=== PATIENT | female | born 1965 | race Caucasian/White ===

== ENCOUNTER 2020-05-16 10:37 | Outpatient (CLI) | payer OTHER, SELFPAY ==
--- NOTE | ~2020-05-16 | MM_ITS ---
EXAMINATION: MM screening jonny BI w alicia HISTORY: Screening TECHNIQUE: Craniocaudal and mediolateral oblique 3-D tomosynthesis images were obtained and synthetic 2-D images were generated. CAD analysis was submitted and interpreted. COMPARISON: No prior mammogram is available for comparison at this institution. BREAST PARENCHYMAL COMPOSITION: There are scattered areas of fibroglandular density. FINDINGS: There is no evidence of suspicious mass, calcification, or architectural distortion to sugg est malignancy in either breast. There has been no suspicious interval change. IMPRESSION: 1. No mammographic evidence of malignancy. 2. Recommend routine screening mammography in one year. BI-RADS Category 1: Negative Reviewed, dictated and finalized at location A. YPERSON
== END 2020-05-16 10:38 | disposition home or self-care (01) ==
PROVIDERS: PCP Family Medicine; Visit Provider Obstetrics & Gynecology Gynecology
DX: Z12.31 Encounter for screening mammogram for malignant neoplasm of breast (principal)
CPT/HCPCS: 77063; 77067

== ENCOUNTER 2021-03-12 07:20 | Outpatient (CLI) | payer OTHER, SELFPAY ==
--- NOTE | ~2021-03-12 | US_ITS ---
EXAMINATION: US abdomen complete EXAM DATE: 03/12/2021 07:47 INDICATION: Iron overload. TECHNIQUE: Multiple grayscale and Doppler images of the complete abdomen were obtained (by a technolo gist who performed the scan) and subsequently reviewed. There is no prior study for comparison. FINDINGS: The abdominal aorta is normal in caliber. Visualized portion IVC is patent. The pancreatic head a nd body are normal in appearance. The pancreatic tail is not visualized. The liver has normal echogenicity and contour. There are no focal liver lesions identified. There is no evidence of intrahepatic biliary duct dilation. Portal venous flow was seen in the hepatopedal , normal direction and has normal Doppler waveform. Common bile duct measures 3 mm, which is normal. The gallbladder wall is normal in thickness, with ex pected amount of distention. No sonographic evidence of pericholecystic fluid. There is no cholelit hiases. Technologist performing exam reports patient did not demonstrate sonographic Fuentes's sign. Please note that this sign is less reliable in patients who have received pain medication. Right kidney: There is normal contour and echogenicity. It measures 11.5 x 4.0 x 4.5 centimeters. There are no focal renal lesions identified. There is no hydronephrosis. Left kidney: There is normal contour and echogenicity. It measures 11.1 x 4.3 x 6.8 centimeters. T here are no focal renal lesions identified. There is no hydronephrosis. The spleen measures 9.0 centimeters and is morphologically normal. IMPRESSION: Unremarkable complete abdominal ultrasound exam. Reviewed, dictated and finalized at location A. RPRISE SERVICES MANAGER
[2021-03-12 21:05] LABS: SARS-CoV-2 RNA PCR Positive
== END 2021-03-12 07:21 | disposition home or self-care (01) ==
PROVIDERS: PCP Family Medicine; Visit Provider Internal Medicine Hematology & Oncology
DX: E83.19 Other disorders of iron metabolism (principal); U07.1 COVID-19
CPT/HCPCS: 76700; C9803; U0003; U0005

== ENCOUNTER 2021-04-15 18:41 | Emergency (ER) | payer OTHER, SELFPAY ==
--- NOTE | 2021-04-15 18:50 | ED.ABDPAIN ---
HPI - Abdominal Pain General Chief Complaint: Abdominal Pain Stated Complaint: Abdominal Pain Time Seen by Provider: 04/15/21 18:50 Source: patient, RN notes reviewed and old records reviewed Mode of arrival: ambulatory Limitations: no limitations History of Present Illness HPI narrative: 55-year-old female presents to the [facility] with complaints of abdominal pain, headache. States the abdominal pain started approximately 2 PM today, epigastric pain. Has taken Tums with no relief. Patient also reports a mild headache for over a month. Had seen primary care provider and they've been monitoring her blood pressure. Denies any nausea vomiting or diarrhea. Denies fevers. No chest pain or shortness of breath. MD elicited complaint: abdominal pain Related Data Home Medications Medication Instructions Recorded Confirmed celecoxib 200 mg capsule 200 mg PO DAILY 12/06/19 04/15/21 cetirizine 10 mg capsule 10 mg PO DAILY 12/06/19 04/15/21 levothyroxine 75 mcg tablet 75 mcg PO DAILY 12/06/19 04/15/21 Allergies Allergy/AdvReac Type Severity Reaction Status Date / Time aspirin Allergy Unknown Unknown Verified 10/09/20 15:24 Bleach (Sodium Hypochlorite) Allergy Unknown Unknown Verified 10/09/20 15:24 kiwi Allergy Unknown Unknown Verified 10/09/20 15:24 No Known Allergies Allergy Unknown Verified 10/09/20 15:24 Review of Systems Review of Systems: All systems reviewed & are unremarkable except as noted in HPI and below Constitutional: Constitutional: Reports no additional constitutional complaints, Denies body ache(s), Denies chills and Denies fever(s) Eyes: Eyes: Reports no additional eye complaints, Denies change in vision and Denies photophobia ENT: Reports system reviewed and no additional complaints, except as documented and Denies sore throat Cardiovascular: Cardiovascular: Reports no additional cardiovascular complaints, Denies chest pain, Denies rapid heart rate, Denies radiating jaw, neck or arm pain, Denies dyspnea and Denies slow heart rate Respiratory: Respiratory: Reports no additional respiratory complaints, Denies cough and Denies dyspnea Gastrointestinal: Gastrointestinal: Reports as per HPI, Reports abdominal pain (Epigastric), Denies diarrhea, Denies nausea and Denies vomiting Genitourinary: Genitourinary: Reports no additional female genitourinary complaints Musculoskeletal: Musculoskeletal: Reports no additional musculoskeletal complaints Integumentary/Breasts: Skin/Breast: Reports system reviewed and no additional complaints, except as docu Neurologic: Reports as per HPI and Reports headache(s) (General) Psychiatric: Psychiatric: Reports no additional psychiatric complaints Allergic/Immunologic: Allergic/Immunologic: Reports no additional allergic/immunologic complaints PMFSH Past Medical History Medical History (Updated 04/15/21 @ 19:16 by Jacquelyn Marie) Bilateral primary osteoarthritis of knee Osteoarthritis of both knees Family History Family History Mother Acute myocardial infarction Family history of arthritis Grandparent Family history of arthritis Father Family history of malignant neoplasm Comments At the time of my signature, I reviewed and agree with the nursing past medical, surgical, social, and family history. There is no relevant family history pertinent to the patient complaint. Exam Const: General: cooperative, healthy appearing, comfortable, no acute distress, well developed and alert; No diaphoretic Nutritional Appearance: well nourished and not obese Orientation/consciousness: patient oriented x3 Limitations: no limitations HENMT: Head: normal to inspection Ears: external ears normal Eyes: Conjunctivae: conjunctivae normal Pupils: Equal, round and reactive pupils present Neck: Neck: normal visual inspection, no lymphadenopathy and no meningeal signs Chest: Chest palpation & inspection: normal inspection of
[2021-04-15 18:53] VITALS: PULSE 84; RESP 16; TEMP 36.8; O2SAT 99
[2021-04-15 18:58] VITALS: BP 220/120
--- NOTE | 2021-04-15 18:58 | PC.NURSE ---
[id number] Pt moved to exam room 1 and EKG done. provider at bedside. manual b/p done.
--- NOTE | 2021-04-15 18:59 | ECG_ITS ---
Measurements Intervals [place] Rate: 72 P: 31 WI: 133 QRS: 32 QRSD: 86 T: 33 QT: 362 QTc: 397 Interpretive Statements SINUS RHYTHM NORMAL ECG Electronically Signed On 04-15-2021 20:24:49 AIRLINE RADIO OPERATOR by Gray Tinsley D.O.
--- NOTE | 2021-04-15 19:00 | PC.NURSE ---
1900 Paresh FRAZIER discussing plan of care with pt. informed pt need to go to [facility] via ambulance. pt refused and calling friend to take her to [facility].
--- NOTE | 2021-04-15 19:03 | PC.NURSE ---
1902 Cipriano Onofre NP called [facility] and gave report to Gely Fuentes RN.
--- NOTE | 2021-04-15 19:06 | PC.NURSE ---
1905 EMS to [facility] offered again, pt refused and signed AMA paper. Pt friend on her way.
== END 2021-04-15 19:11 | disposition short-term general hospital (02) ==
PROVIDERS: Emergency Provider Nurse Practitioner; PCP Nurse Practitioner Adult Health
DX: I10 Essential (primary) hypertension (principal); R10.11 Right upper quadrant pain; M17.0 Bilateral primary osteoarthritis of knee
CPT/HCPCS: 93005; 99213; G0463

== ENCOUNTER → 2021-05-23 11:27 | Outpatient (CLI) | payer OTHER, SELFPAY ==
--- NOTE | ~2021-05-23 | US_ITS ---
EXAMINATION: US transvaginal DATE: 05/23/2021 12:12 INDICATION: Missing IUD arms after device removal TECHNIQUE: Multiple endovaginal sonographic images of the pelvis were obtained. COMPARISON: None. FINDINGS: The uterus measures 8.2 x 4.4 x 4.7 cm. There is an approximately 5 mm linear echogenic foc us in the left uterus near the fundus. There is a second echogenic focus measuring approximately 5 mm projecting adjacent to the endometrial complex in the mid uterine body on the right. The endometrial complex measures 5 mm. The ovaries are not visualized however no adnexal abnormality is seen. There is no free fluid in the pelvis. IMPRESSION: 1. Possible retained IUD fragments. Reviewed, dictated and finalized at location B. IN DUMPER
== END ==
PROVIDERS: Visit Provider Nurse Practitioner
DX: T83.89XA Other specified complication of genitourinary prosthetic devices, implants and grafts, initial encounter (principal); Y83.8 Other surgical procedures as the cause of abnormal reaction of the patient, or of later complication, without mention of misadventure at the time of the procedure
CPT/HCPCS: 76830

== ENCOUNTER 2021-06-19 08:21 | Outpatient (CLI) | payer OTHER, SELFPAY ==
--- NOTE | 2021-06-19 | ECG_ITS ---
Measurements Intervals [place] Rate: 61 P: 35 IN: 136 QRS: 42 QRSD: 85 T: 21 QT: 405 QTc: 411 Interpretive Statements SINUS RHYTHM COMPARED TO ECG 04/15/2021 18:58:25 NO SIGNIFICANT CHANGES Electronically Signed On 06-19-2021 18:53:56 CDT by Shonna Santiago M.D.
--- NOTE | ~2021-06-19 | CT_ITS ---
EXAMINATION: CT LE LT wo con DATE: 06/19/2021 08:39 INDICATION: Left knee osteoarthritis TECHNIQUE: High resolution computed tomography (CT) of the left lower limb from the hip through the a nd ankle was performed without intravenous contrast. Additional sagittal and coronal reconstructions were performed. Automated exposure control and iterative reconstruction technique were employed. The dose-length product was 1589.45 mGy-cm. COMPARISON: Radiograph dated 09/01/2018 FINDINGS: Bone alignment is normal. No fracture. Osteoarthritis at the right knee with moderate joint space concha rowing the medial compartment which could be underestimated on nonweightbearing imaging. There modera te-sized marginal osteophytes at both the medial and patellofemoral compartments. Small marginal oste ophytes at the lateral compartment. Small to moderate-sized right knee joint effusion. Small marginal osteophytes about the left acetabulum with relatively preserved left hip joint space. No left hip dino int effusion. Small enthesophyte and a few small enthesopathic ossicles at the calcaneal insertion of the distal Achilles tendon. The musculature and tendons of the left lower limb. Normal . No patholog ically enlarged lymphadenopathy at the left groin or visualized pelvis. IMPRESSION: 1. At least moderate medial compartment predominant osteoarthritis at the left knee which could be un derestimated on nonweightbearing imaging. Reviewed, dictated and finalized at location B. IMPRESSION: 1. At least moderate medial compartment predominant osteoarthritis at the left knee which could be underestimated on nonweightbearing imaging.
[2021-06-19 09:10] LABS: Hematocrit 45.4 % (37.0-47.0); Hemoglobin 15.4 g/dL (12.0-15.0)
[2021-06-19 09:21] LABS: Albumin Level 4.2 g/dL (3.5-5.1); Estimated Glomerular Filt Rate > 60; Glucose 88 mg/dL (65-110)
[2021-06-19 09:21] LABS: Urine Cotinine NEGATIVE
[2021-06-19 09:23] LABS: Hemoglobin A1C 5.2 % (<5.7)
== END 2021-06-19 08:22 | disposition home or self-care (01) ==
PROVIDERS: PCP Nurse Practitioner Adult Health; Visit Provider Orthopaedic Surgery
DX: M17.12 Unilateral primary osteoarthritis, left knee (principal)
CPT/HCPCS: 73700; 80307; 82040; 82565; 82947; 83036; 85014; 85018; 93005

== ENCOUNTER → 2021-06-20 10:49 | Outpatient (CLI) | payer OTHER, SELFPAY ==
--- NOTE | ~2021-06-20 | MM_ITS ---
EXAMINATION: MM screening jonny BI w alicia HISTORY: Screening TECHNIQUE: Craniocaudal and mediolateral oblique 3-D tomosynthesis images were obtained and synthetic 2-D images were generated. CAD analysis was submitted and interpreted. COMPARISON: Comparison to multiple prior studies sequentially, with oldest reviewed study dated 12/03. BREAST PARENCHYMAL COMPOSITION: There are scattered areas of fibroglandular density. FINDINGS: There is no evidence of suspicious mass, calcification, or architectural distortion to sugg est malignancy in either breast. There has been no suspicious interval change. IMPRESSION: 1. No mammographic evidence of malignancy. 2. Recommend routine screening mammography in one year. BI-RADS Category 1: Negative Reviewed, dictated and finalized at location A.
== END ==
PROVIDERS: PCP Nurse Practitioner Adult Health; Visit Provider Obstetrics & Gynecology Gynecology
DX: Z12.31 Encounter for screening mammogram for malignant neoplasm of breast (principal)
CPT/HCPCS: 77063; 77067

== ENCOUNTER → 2021-07-21 16:06 | Outpatient (CLI) | payer OTHER, SELFPAY ==
--- NOTE | ~2021-07-21 | XR_ITS ---
EXAM: XR abdomen/kub 1V HISTORY: IUD Placement COMPARISON: None available FINDINGS: Clear lung bases. Normal bowel gas pattern. No organomegaly. No abnormal abdominal calcifi cation. Regional bones and soft tissues normal for age. IMPRESSION: No IUD present. Reviewed, dictated and finalized at location K. IMPRESSION: No IUD present.
== END ==
PROVIDERS: PCP Nurse Practitioner Adult Health; Visit Provider Obstetrics & Gynecology Gynecology
DX: Z30.431 Encounter for routine checking of intrauterine contraceptive device (principal)
CPT/HCPCS: 74018

== ENCOUNTER 2021-08-20 11:07 | Outpatient (CLI) | payer OTHER, SELFPAY ==
[2021-08-20 11:38] LABS: Basophils Absolute Auto 0.1 K/mm3 (0.0-0.1); Basophils Percent Auto 1.1 % (0.2-1.2); Eosinophils Absolute Auto 0.3 K/mm3 (0-0.3); Eosinophils Percent Auto 6.8 % (0-4.4); Hematocrit 46.3 % (37.0-47.0); Hemoglobin 15.5 g/dL (12.0-15.0); Immature Granulocyte Absolute 0.05 K/mm3 (0.00-0.031); Immature Granulocyte Percent A 1.1 % (0-0.5); Lymphocytes Percent Auto 23.5 % (18.3-44.2); Mean Corpuscular HGB Conc 33.5 g/dl (32-36); Mean Corpuscular Hemoglobin 30.6 pg (26-34); Mean Corpuscular Volume 91.3 fl (80-100); Mean Platelet Volume 10.2 fl (7.4-10.4); Monocytes Absolute Auto 0.6 K/mm3 (0.1-0.6); Monocytes Percent Auto 13.7 % (2.6-8.5); Neutrophils Absolute Auto 2.5 K/mm3 (1.3-6.7); Neutrophils Percent Auto 53.8 % (45.5-73.1); Platelet Count Result 224 k/mm3 (150-375); Red Blood Count 5.07 M/mm3 (4.2-5.4); Red Cell Distribution Width 11.8 % (11.5-14.5); White Blood Count 4.7 K/mm3 (4.5-10.0)
[2021-08-20 14:38] LABS: Alanine Aminotransferase 61 U/L (6-35); Alkaline Phosphatase 105 U/L (38-126); Anion Gap 2 mmol/L (8-16); Aspartate Amino Transferase 58 U/L (14-36); Bilirubin,Total 0.5 mg/dL (0.2-1.3); Blood Urea Nitrogen 16 mg/dL (7-17); Calcium 9.5 mg/dL (8.4-10.2); Carbon Dioxide 30 mmol/L (22-30); Chloride 102 mmol/L (98-107); Estimated Glomerular Filt Rate > 60; Glucose 100 mg/dL (65-110); Iron 100 ug/dL (37-170); Potassium 4.4 mmol/L (3.4-5.0); Sodium 134 mmol/L (137-145)
[2021-08-20 14:50] LABS: Percent Iron Saturation 29 % (20-50)
== END 2021-08-20 11:08 | disposition home or self-care (01) ==
PROVIDERS: PCP Nurse Practitioner Adult Health; Visit Provider Internal Medicine Hematology & Oncology
DX: E83.19 Other disorders of iron metabolism (principal)
CPT/HCPCS: 36415; 80053; 82728; 83540; 83550; 85025

== ENCOUNTER 2021-08-27 08:02 | Outpatient (CLI) | payer OTHER, SELFPAY ==
[2021-08-27 09:35] LABS: Urine Cotinine NEGATIVE
== END 2021-08-27 08:03 | disposition home or self-care (01) ==
LOC: ANHSURGERY 08:08
PROVIDERS: PCP Nurse Practitioner Adult Health; Visit Provider Orthopaedic Surgery
DX: M17.0 Bilateral primary osteoarthritis of knee (principal); Z01.818 Encounter for other preprocedural examination
CPT/HCPCS: 80307; 87081

== ENCOUNTER 2021-09-25 01:27 | Day surgery (SDC) | payer OTHER, SELFPAY ==
--- NOTE | 2021-08-27 08:02 | PC.NURSE ---
Report to the Outpatient Waiting Room, entrance under the green pavilion located off [facility], at time _0600_ on date _09/25/21_. OR Time: _0730_. - You and your visitor will be asked a series of questions to screen for COVID 19 for your protection. - Only one visitor is allowed at this time. VISITING HOURS 10AM-8PM, USE MAIN HOSPITAL ENTRANCE - The patient visitor is requested to leave or wait in car when not with patient. - A mask is required within the hospital. Patients may have clear liquids (water, carbonated beverages, clear teas, apple juice) until 3 hours prior to surgery (0430 AM) with a maximum of 20 ounces. - No food from midnight until time of surgery Take the following medications with a SIP of water the morning of surgery: _ LEVOTHYROXINE__ Medications to discontinue - DICLOFENAC TOPICAL GEL PER DR. FREEDMAN'S INSTRUCTIONS Please no make-up, nail malagasy, hairspray, perfume, deodorant, or body powder the day of surgery. No jewelry (including any body piercings) or valuables the day of surgery, leave them at home. Please take a shower or bath the night before, or the morning of, surgery with an antibacterial soap. Wear comfortable, loose fitting clothing. - Jewelry must be removed prior to entering the operating room. Rings and piercings that are not removed may be cut off. - The hospital will not accept responsibility for valuables. - Please leave all valuables, including medications, at home the day of surgery. If you are going home after surgery, a licensed cat driver must drive you home. - NO public transportation without another adult. - We recommend that an adult stay with you for 24 hours following discharge. - We also recommend that you do not drive, make important decision, drink alcoholic beverages, or take any drugs that were not prescribed by your health care provider for at least 24 hours after your discharge time. Follow any additional instructions given to you from your surgeon. If you or anyone in your household have experienced Covid symptoms in the past week, please notify your surgeon or the nurse liaison at the phone number below for possible testing. Instructions given to ___PT and asked if any additional questions and then verbalized understanding. Patient advised to call surgeon office or pre surgery nurse liaison [phone] if any additional questions.
[2021-08-27 08:32] VITALS: BP 160/70; PULSE 64; RESP 17; TEMP 36.5; O2SAT 98; BMI 33.2
--- NOTE | 2021-09-24 12:21 | WPDANESEPPF ---
Anes - Initial Pre Proc Eval Procedure: Operation Date: 09/25/21 07:30 Proposed Procedures p Left Custom Total Knee Arthroplasty - Devon Onofre MD Date/Time: 09/24/21 12:21 Surgeon: Devon Onofre MD Pre Op Diagnosis: primary OA left knee Patient Data Age: 55 Gender: F Height: 1.66 m Weight: 91.9 kg Last Vital Signs Temp 36.5 C 08/27/21 08:32 Pulse 64 08/27/21 08:32 Resp 17 08/27/21 08:32 BP 160/70 H 08/27/21 08:32 Pulse Ox 98 08/27/21 08:32 O2 Del Method Room Air 08/27/21 08:32 Allergies Allergy/AdvReac Type Severity Reaction Status Date / Time kiwi Allergy Severe FACIAL Verified 09/25/21 06:30 SWELLING, SCRATCHY TONGUE aspirin AdvReac Mild STOMACH Verified 09/25/21 06:30 PAIN Bleach (Sodium Hypochlorite) AdvReac Mild SKIN Verified 09/25/21 06:30 IRRITATION Home Medications Medication Instructions Recorded Confirmed Type celecoxib 200 mg capsule 200 mg PO HS 12/06/19 09/25/21 History cetirizine 10 mg capsule (All Day 10 mg PO HS 12/06/19 09/25/21 History Allergy (cetirizine)) levothyroxine 75 mcg tablet 75 mcg PO QAM 12/06/19 09/25/21 History (Euthyrox) diclofenac sodium 1 % topical gel 4 g topical QID #100 grams 05/22/21 09/25/21 Rx ezetimibe 10 mg tablet 1 tablet HS 08/27/21 09/25/21 History paroxetine HCl 10 mg tablet 10 mg PO HS 08/27/21 09/25/21 History zinc 50 mg tablet 50 mg PO HS 08/27/21 09/25/21 History ECG: Date of Service: 06/19/21 Procedure(s): CA 12 lead EKG Accession Number(s): [id number] cc: ~ ? Measurements Intervals? [place]? Rate: ? 61 ? P:? 35 DC: ? 136? QRS:? 42 QRSD: ? 85 ? T:? 21 QT: ? 405? QTc:? 411? Interpretive Statements SINUS RHYTHM COMPARED TO ECG 04/15/2021 18:58:25 NO SIGNIFICANT CHANGES Electronically Signed On 06-19-2021 18:53:56 CDT by Shonna Santiago M.D. Dictated By:? Shonna Santiago MD? 06/19/21 1854 Patient hx anesthesia problems: none Family hx anesthesia problems: none Results Review: All pre-operative results and documents have been reviewed as part of the pre-operative evaluation. [facility] Past Medical History Medical History (Updated 09/24/21 @ 12:22 by Flash Dyson MD) Bilateral primary osteoarthritis of knee Hyperlipidemia Hypothyroidism Obesity SOTO on CPAP Osteoarthritis of both knees Family History Family History Mother Acute myocardial infarction Family history of arthritis Grandparent Family history of arthritis Father Family history of malignant neoplasm Social History Social History Years smoked: 10 Smoking status: Former smoker Tobacco type: cigarettes Second hand tobacco smoke exposure: No Additional smoking assessment comments: STATES WAS A SOCIAL SMOKER 1PK/WEEK/QUIT 2001 Alcohol intake: current Drinks per week: 15 Substance use: current Substance use type: marijuana Other substance usage details: [facility] COUPLE TIMES A MONTH TO HELP SLEEP Last use: 08/21/21 Living arrangements: with family Spiritual care concerns: No Anes - Eval Final PreProcedure Day of Procedure 09/24/21 12:21 Patient weight: obese Heart: regular rate and rhythm Lungs: clear to auscultation and normal air movement Airway: Mallampati scale class II Neurological: alert and oriented Last oral intake: >/= 8 hours ASA classification: III Emergent: no Anesthetic plan: proceed Anesthesia type and monitoring: general LMA Results Review: All pre-operative results and documents have been reviewed as part of the pre-operative evaluation. Informe
--- NOTE | 2021-09-24 12:23 | WPDANESPNB ---
Anes - Peripheral Nerve Block Date/Time: 09/24/21 12:23 I have discussed with the patient/family/POA the placement of a peripheral nerve block for post-operative pain management, including associated risks, benefits, complications, and side effects. Alternative methods of post-operative analgesia were detailed. Questions were solicited and answers provided to the satisfaction of the patient/family/POA. Time-Out: A pre-procedural Time-Out was completed immediately before starting the procedure and confirmed: Patient Identification, Site, Procedure, Patient Position and the Availability of Requisite Equipment. Clinical Indications: Acute post-operative pain management requested by the operative surgeon. Nerve Block Insertion Note Anes-nerve block: adductor canal left Patient position: supine Skin prep: chlorhexidine Needle: 22 gauge, stimulating, insulated echogenic needle. Needle length: 80 mm Technique: ultrasound Technique comment: in plane Injectate: bupivacaine 0.5% with epi 5 mcg/ml (30cc) Observations: tolerated well Complications: none Procedure start time:: 720 Procedure end time:: 725
[2021-09-25] VITALS (13 sets, daily range): BP systolic 122–158; BP diastolic 61–95; PULSE 69–89; RESP 14–20; TEMP 35.8–37.2; O2SAT 93–99
--- NOTE | ~2021-09-25 | XR_ITS ---
EXAMINATION: XR knee LT 2V DATE: 09/25/2021 10:17 INDICATION: Left knee arthroplasty. Postop. TECHNIQUE: 2 views of left knee were obtained. COMPARISON: Left knee radiographs 05/04/2018 FINDINGS: There is a total left knee arthroplasty in near-anatomic alignment with patellar resurfacin g. No fracture. There is gas in the knee joint and soft tissues, consistent with recent surgery. IMPRESSION: 1. Total left knee arthroplasty in near-anatomic alignment. Reviewed, dictated and finalized at location A.
[2021-09-25] MEDS: ACETAMINOPHEN 500 MG TABLET 1000 MG PO (06:46)
[2021-09-25] MEDS: LACTATED RINGERS 1,000 ML 30 ML IV CONT ×2 (06:50→09:57)
[2021-09-25] MEDS: TRANEXAMIC ACID 1,000MG/ISO100 1,000 MG/100 ML BAG 200 MG IVPB (07:04)
--- NOTE | 2021-09-25 07:15 | WPDHPUPDATE1 ---
History and Physical Update Update Date/Time: 09/25/21 07:15 History and Physical has been reviewed, including an updated exam of the patient. There are NO changes in the patient's condition. Risks, benefits, and alternatives have been discussed and questions answered. Patient agrees to proceed with procedure.
[2021-09-25] MEDS: ceFAZolin 2 GM/D5W 50 ML 2 GM/50 ML BAG IVPB ×3 (07:30→23:55)
[2021-09-25] MEDS: GENTAMICIN BONE CEMENT REFOBACIN 1 EACH TOPICAL (08:08)
[2021-09-25] MEDS: fentaNYL CITRATE INJ (*CRX) 100 MCG/2 ML VIAL 25 MCG IV PUSH ×5 (10:25→11:00)
[2021-09-25] MEDS: ONDANSETRON INJ 4 MG/2 ML VIAL IV PUSH (10:54)
--- NOTE | 2021-09-25 11:25 | ADMGEN ---
This patient, Gilma Barahona, was admitted to 2 Medical Room 256-. Patient/family oriented to hospital policies and general routines including ID bracelet, bed and alarms, visiting hours, pain management, procedures, bathroom and other care routines, personal items, smoking policy, room service/diet, and visiting hours. Information on how to activate the Rapid Response Team has been discussed. Patient/Family are encouraged to report perceived risks to care and to ask questions if they do not understand what they are told or what they should do.
[2021-09-25] MEDS: SODIUM CHLORIDE 0.9% IV 1,000 ML 125 ML IV CONT (11:47)
[2021-09-25] MEDS: oxyCODONE HCL (*CRX) 5 MG TAB IR 10 MG PO (12:00)
--- NOTE | 2021-09-25 14:23 | W.PM.PROC2 ---
Procedure Note - Detailed Date of Procedure 09/25/21 Pre-op Diagnosis primary OA left knee Post-op Diagnosis Same Procedure Performed Total knee arthroplasty, left knee Surgeon Devon Onofre MD Para Professional Estrella Leblanc PA-C Anesthesia General and Regional (Subsartorial block.) Findings Varus arthritis. Good bone quality. Custom TKA. No releases required. Description of Procedure Preoperative antibiotics were given. The limb was prepped and draped in the usual sterile fashion with a well-padded tourniquet high on the thigh. The limb was exsanguinated and the tourniquet inflated to 300 mmHg. A longitudinal incision was created just medial to the patella. A trivector approach to the knee was performed. Arthrotomy was taken down through the joint capsule. No significant releases were initially taken. The femur was exposed and the F1 jig was applied. The coring tool was used to remove the cartilage for the F2 jig to sit flush with the bone. The jig was pinned and the distal cut carefully taken. Caliper measurements confirmed appropriate bony resections according to the preoperative templated plan. The F4 cutting jig for the femur was applied, at the standard rotation. The AP and anterior chamfer cuts were taken. The F5 jig was applied and the posterior chamfer cuts were taken. The tibia was prepared using the T1 jig, after removing cartilage for the jig contact points. Proper alignment was checked with the alignment maxwell. The tibia was cut using the T1u guide. Gap balancing was performed. Gap measurements were taken and the knee was trialed. Excellent alignment and soft tissue balancing was confirmed. The posterior cruciate ligament was recessed along the proximal tibia. The patella was cut for resurfacing. Three lug holes were drilled. Meniscal remnants were removed. The trial components were assembled. Excellent range of motion and proper soft tissue balancing were confirmed throughout the full range of motion. Patellar tracking was excellent. The knee was copiously irrigated periodically throughout the procedure. The real implants were cemented into position. Excess cement was carefully removed. The wound was closed in layers with interrupted #1 Vicryl suture, 2-0 strata fix suture, 0 strata fix suture, 2-0 strata fix suture. Steri-Strips placed on the skin with the knee flexed. Sterile bulky dressing applied. The patient was brought to the recovery room in stable condition. There were no complications. Physician real estate administrative assistant, Estrella Leblanc PA-C, required for surgery; including patient positioning, draping, tissue retraction, maintaining instrument position, cement removal, wound closure, and dressing placement. Implants Conformis Custom total knee arthroplasty. Cemented. Cruciate retaining. 6A insert. 32 mm round patella. Estimated Blood Loss 150 Drains No Pathology None sent Complications No immediate complications Condition Stable Disposition PACU [facility] Billing Surgery - Charge Forward: Surgery Billing
[2021-09-25] MEDS: ASPIRIN 81 MG ENTERIC TABLET PO (16:37)
[2021-09-25] MEDS: SENNA/DOCUSATE SODIUM TABLET 2 TAB PO (16:37)
[2021-09-25] MEDS: oxyCODONE HCL (*CRX) 5 MG TAB IR PO ×2 (16:41→20:22)
[2021-09-25] MEDS: CELECOXIB 200 MG CAPSULE PO (20:19)
[2021-09-25] MEDS: PARoxetine 10 MG TABLET PO (20:19)
[2021-09-25] MEDS: FAMOTIDINE 20 MG TABLET PO (20:19)
[2021-09-26 01:04] VITALS: BP 127/76; PULSE 76; RESP 16; TEMP 37.1; O2SAT 97
[2021-09-26] MEDS: oxyCODONE HCL (*CRX) 5 MG TAB IR 10 MG PO ×3 (01:08→13:19)
[2021-09-26 01:20] VITALS: PULSE 73; RESP 21; O2SAT 97
[2021-09-26] MEDS: ACETAMINOPHEN 500 MG TABLET 1000 MG PO (02:50)
[2021-09-26] MEDS: CYCLOBENZAPRINE HCL 10 MG TABLET PO (02:51)
[2021-09-26 05:01] VITALS: BP 101/54; PULSE 56; RESP 16; TEMP 36.4; O2SAT 98
[2021-09-26] MEDS: LEVOTHYROXINE SODIUM 75 MCG TABLET PO (06:51)
[2021-09-26] MEDS: ceFAZolin 2 GM/D5W 50 ML 2 GM/50 ML BAG IVPB (09:07)
[2021-09-26] MEDS: FAMOTIDINE 20 MG TABLET PO (09:08)
[2021-09-26] MEDS: ASPIRIN 81 MG ENTERIC TABLET PO (09:08)
[2021-09-26] MEDS: predniSONE 5 MG TABLET PO (09:09)
[2021-09-26] MEDS: SENNA/DOCUSATE SODIUM TABLET 2 TAB PO (09:10)
[2021-09-26 10:00] VITALS: BP 125/57; PULSE 63; RESP 16; TEMP 36.4; O2SAT 98
--- NOTE | 2021-09-26 12:09 | PM.DS ---
DS: Admitting Diagnosis Discharge Date 09/26/21 Admitting Diagnosis OA knee Left DS: Discharge Diagnosis Discharge Diagnosis (1) Status post total left knee replacement: Code(s): Z96.652 - Presence of left artificial knee joint Status: Acute Assessment and Plan: Postop day 1: Left total knee arthroplasty. Patient tolerated procedure well. No complications. Pain manageable with pain medication. No numbness or tingling. We had a lengthy discussion regarding postoperative wound care, limitations, expectations, and exercises. Patient shows good understanding. He has had initial physical therapy and is tolerating it well. DVT prophylaxis: 81 mg baby aspirin b.i.d. for 14 days. Pain medication: Percocet. Celebrex. Prednisone. Patient has followup appointment with Dr. Onofre in 3 weeks. DS: Summary Hospital Course Reason for hospitalization: Total knee arthroplasty Hospital Course: Patient tolerated procedure well. Has had initial PT/OT. Status at Discharge Functional status at discharge: uses cane/walker Overall status at discharge: patient is progressing back to baseline Time Spent with Patient Time attestation: Total time spent providing and/or coordinating discharge services: Exam Narrative: Overweight 55-year-old overweight female. Resting comfortably in chair. Alert and oriented x3. No acute distress. Wearing compression socks bilaterally. Dressing intact with small area of dried bloody drainage on Mepilex. This has not changed since yesterday. Moderate swelling. No ecchymosis. No erythema. No hematoma. Range of motion limited due to pain. Calf nontender. Neurologic status intact. No varicosities. Distal pulses palpable. Discharge Plan Discharge Patient Disposition: Home, Self-Care Discharge Instructions: See green instruction sheets Follow-up/Referrals: Estrella Leblanc PA [Physician Corporate Communications Specialist] - Discharge Medications: New aspirin 81 mg tablet,delayed release (DR/EC) 81 mg PO BID 14 Days Qty: 28 0RF oxycodone-acetaminophen 5-325 mg tablet 1 - 2 tablet PO Q4-6H MDD 6 PRN (Reason: pain) Qty: 30 0RF prednisone 5 mg tablet 5 mg PO DAILY 21 Days Qty: 21 0RF Continued levothyroxine [Euthyrox] 75 mcg tablet 75 mcg PO QAM celecoxib 200 mg capsule 200 mg PO HS All Day Allergy (cetirizine) 10 mg capsule 10 mg PO HS paroxetine HCl 10 mg Tablet 10 mg PO HS zinc 50 mg Tablet 50 mg PO HS ezetimibe 10 mg tablet 1 tablet HS diclofenac sodium 1 % gel 4 g topical QID Qty: 100 3RF Rx Instructions: apply to single knee, ankle, foot; for foot includes sole/toes/top of foot
== END 2021-09-26 13:41 | disposition home or self-care (01) ==
LOC: ANHSURGERY 06:17 → ANH2MED 11:20
PROVIDERS: PCP Nurse Practitioner Adult Health; Visit Provider Orthopaedic Surgery
PROC: (CPT 27447; principal; 2021-09-25 07:30)
DX: M17.12 Unilateral primary osteoarthritis, left knee (principal); G89.18 Other acute postprocedural pain; E78.5 Hyperlipidemia, unspecified; E03.9 Hypothyroidism, unspecified; G47.33 Obstructive sleep apnea (adult) (pediatric); Z87.891 Personal history of nicotine dependence; E66.9 Obesity, unspecified; Z68.33 Body mass index [BMI] 33.0-33.9, adult
CPT/HCPCS: 27447; 64447; 36415; 73560; 80307; 86850; 86900; 86901; 87081; 97110; 97116; 97161; 97165; 97530; 97535; A9270; C1713; C1776; J0131; J0171; J0690; J1100; J2250; J2270; J2405; J2704; J2795; J3010; J7030; J7120; J7512

== ENCOUNTER 2021-12-18 01:18 | Day surgery (SDC) | payer OTHER, SELFPAY ==
[2021-12-01 13:58] VITALS: BMI 32.3
--- NOTE | 2021-12-01 14:14 | PC.NURSE ---
PT INSTRUCTED TO NOT TAKE MAGNESIUM CITRATE PER BOWEL PREP ORDERS DUE TO RECALL, PT STATES UNDERSTANDING.
[2021-12-18 10:14] VITALS: BP 140/77; PULSE 82; RESP 17; TEMP 36.2; O2SAT 97; BMI 34.2
--- NOTE | 2021-12-18 10:19 | PM.HPGS ---
History of Present Illness History of Present Illness Consent: Risks, benefits, and alternatives have been discussed and questions answered. Patient agrees to proceed with procedure. Chief complaint: family hx colon ca, hx of polyps, neoplasm Narrative: Gilma Barahona is a 56 year old female Presents for screening colonoscopy. Patient reports a prior history of colon polyps. Most recently 2015 and prior to that 2009. Family history is significant for colon cancer in her brother in 2 uncles. Patient reports that her current weight appetite are normal. She recently has had a tendency towards diarrhea and loose stools that she attributes to cholesterol medication. Patient denies any bleeding. She has had no weight loss. She denies abdominal pain. Colonoscopy to be performed today. Review of Systems Review of Systems: Review of systems noncontributory. [facility] Past Medical History Medical History (Updated 12/18/21 @ 10:21 by Darío Garrido MD) Bilateral primary osteoarthritis of knee Hyperlipidemia Hypothyroidism Obesity SOTO on CPAP Osteoarthritis of both knees Surgical History Surgical History (Updated 10/15/21 @ 13:38 by Elyssa Lynch) History of total left knee replacement (~09/25/21) Conformis Family History Family History Mother Acute myocardial infarction Family history of arthritis Grandparent Family history of arthritis Father Family history of malignant neoplasm Social History Social History Smoking packs per day: 0.2 Smoking cigarettes per day: 4.0 Years smoked: 10 Smoking pack-years: 2.00 Smoking status: Former smoker Tobacco type: cigarettes Second hand tobacco smoke exposure: No Additional smoking assessment comments: STATES WAS A SOCIAL SMOKER 1PK/WEEK/QUIT 2001 Alcohol intake: current Drinks per week: 3 Alcohol use details: [place] Substance use: never Substance use type: does not use Other substance usage details: STATES COUPLE TIMES A MONTH TO HELP SLEEP Last use: 09/18/21 Living arrangements: with family Spiritual care concerns: No Meds Home Medications and Allergies Home Medications Medication Instructions Recorded Confirmed Type celecoxib 200 mg capsule 200 mg PO HS 12/06/19 12/18/21 History cetirizine 10 mg capsule (All Day 10 mg PO HS 12/06/19 12/18/21 History Allergy (cetirizine)) levothyroxine 75 mcg tablet 75 mcg PO QAM 12/06/19 12/18/21 History (Euthyrox) paroxetine HCl 10 mg tablet 10 mg PO HS 08/27/21 12/18/21 History zinc 50 mg tablet 50 mg PO HS 08/27/21 12/18/21 History Allergies Allergy/AdvReac Type Severity Reaction Status Date / Time kiwi Allergy Severe FACIAL Verified 12/18/21 10:13 SWELLING, SCRATCHY TONGUE aspirin AdvReac Mild STOMACH Verified 12/18/21 10:13 PAIN Bleach (Sodium Hypochlorite) AdvReac Mild SKIN Verified 12/18/21 10:13 IRRITATION Exam Narrative: Physical exam reveals patient to be alert. Vital signs stable. HEENT exam is unremarkable. Patient is anicteric. Lungs are clear to auscultation and percussion. Heart is without murmur or extra sounds. Abdomen bowel sounds are present soft nontender with no organomegaly. Digital external rectal exam is normal. Assessment and Plan Assessment and plan (1) History of colon polyps: Code(s): Z86.010 - Personal history of colonic polyps Status: Acute Assessment and Plan: Patient has a prior history of colon polyps. Plan for surveillance colonoscopy now and consider this at intervals in the future. Further recommendations will be given after endoscopy. High-fiber diet is advised with fiber supplements because recent description of loose stools. (2) Family hx of colon cancer: Code(s): Z80.0 - Family history of malignant neoplasm of digestive organs Status:
[2021-12-18] MEDS: AMPICILLIN 2 GM/NS 100 ML 2 GM/100 ML BAG IVPB (10:26)
[2021-12-18] MEDS: LACTATED RINGERS 1,000 ML 150 ML IV CONT (10:29)
--- NOTE | 2021-12-18 10:42 | WPDANESEPPF ---
Anes - Initial Pre Proc Eval Procedure: Operation Date: 12/18/21 11:00 Proposed Procedures p Screening Colonoscopy - Darío Garrido MD Date/Time: 12/18/21 10:42 Surgeon: Darío Garrido MD Pre Op Diagnosis: family hx colon ca, hx of polyps, neoplasm Patient Data Age: 56 Gender: F Height: 1.68 m Weight: 96.3 kg Last Vital Signs Temp 97.1 F L 12/18/21 10:14 Pulse 82 12/18/21 10:14 Resp 17 12/18/21 10:14 BP 140/77 12/18/21 10:14 Pulse Ox 97 12/18/21 10:14 O2 Del Method Room Air 12/18/21 10:14 Allergies Allergy/AdvReac Type Severity Reaction Status Date / Time kiwi Allergy Severe FACIAL Verified 12/18/21 10:13 SWELLING, SCRATCHY TONGUE aspirin AdvReac Mild STOMACH Verified 12/18/21 10:13 PAIN Bleach (Sodium Hypochlorite) AdvReac Mild SKIN Verified 12/18/21 10:13 IRRITATION Home Medications Medication Instructions Recorded Confirmed Type celecoxib 200 mg capsule 200 mg PO HS 12/06/19 12/18/21 History cetirizine 10 mg capsule (All Day 10 mg PO HS 12/06/19 12/18/21 History Allergy (cetirizine)) levothyroxine 75 mcg tablet 75 mcg PO QAM 12/06/19 12/18/21 History (Euthyrox) paroxetine HCl 10 mg tablet 10 mg PO HS 08/27/21 12/18/21 History zinc 50 mg tablet 50 mg PO HS 08/27/21 12/18/21 History Patient hx anesthesia problems: none Family hx anesthesia problems: none Results Review: All pre-operative results and documents have been reviewed as part of the pre-operative evaluation. [facility] Past Medical History Medical History (Updated 12/18/21 @ 10:21 by Darío Garrido MD) Bilateral primary osteoarthritis of knee Hyperlipidemia Hypothyroidism Obesity SOTO on CPAP Osteoarthritis of both knees Surgical History Surgical History (Updated 10/15/21 @ 13:38 by Elyssa Lynch) History of total left knee replacement (~09/25/21) Conformis Family History Family History Mother Acute myocardial infarction Family history of arthritis Grandparent Family history of arthritis Father Family history of malignant neoplasm Social History Social History Smoking packs per day: 0.2 Smoking cigarettes per day: 4.0 Years smoked: 10 Smoking pack-years: 2.00 Smoking status: Former smoker Tobacco type: cigarettes Second hand tobacco smoke exposure: No Additional smoking assessment comments: STATES WAS A SOCIAL SMOKER 1PK/WEEK/QUIT 2001 Alcohol intake: current Drinks per week: 3 Alcohol use details: [place] Substance use: never Substance use type: does not use Other substance usage details: STATES COUPLE TIMES A MONTH TO HELP SLEEP Last use: 09/18/21 Living arrangements: with family Spiritual care concerns: No Anes - Eval Final PreProcedure Day of Procedure 12/18/21 10:42 Patient weight: obese Heart: regular rate and rhythm Lungs: clear to auscultation Airway: Mallampati scale class II Neurological: alert and oriented Last oral intake: >/= 8 hours ASA classification: III Emergent: no Anesthetic plan: proceed Anesthesia type and monitoring: general GIVS and standard monitoring Results Review: All pre-operative results and documents have been reviewed as part of the pre-operative evaluation. Informed Consent: The patient's anesthetic plan and its attendant risks and benefits were discussed with the patient/family/POA. Questions were solicited and answers provided to the satisfaction of the patient/family/POA.
[2021-12-18 11:18] VITALS: BP 113/81; PULSE 74; RESP 23; O2SAT 98
[2021-12-18 11:28] VITALS: BP 120/69; PULSE 68; RESP 19; O2SAT 96
[2021-12-18 11:38] VITALS: BP 114/94; PULSE 70; RESP 17; O2SAT 100
== END 2021-12-18 11:53 | disposition home or self-care (01) ==
PROVIDERS: PCP Nurse Practitioner Adult Health; Visit Provider Internal Medicine Gastroenterology
PROC: 0DJD8ZZ Inspection of Lower Intestinal Tract, Via Natural or Artificial Opening Endoscopic (ICD-10-PCS; CPT 45378; principal; 2021-12-18 11:00)
DX: Z12.11 Encounter for screening for malignant neoplasm of colon (principal); Z86.010 Personal history of colon polyps; Z80.0 Family history of malignant neoplasm of digestive organs; K57.30 Diverticulosis of large intestine without perforation or abscess without bleeding; K64.8 Other hemorrhoids; M19.90 Unspecified osteoarthritis, unspecified site; E11.9 Type 2 diabetes mellitus without complications; G47.33 Obstructive sleep apnea (adult) (pediatric); E03.9 Hypothyroidism, unspecified; E78.5 Hyperlipidemia, unspecified; Z87.891 Personal history of nicotine dependence; E66.9 Obesity, unspecified; Z68.34 Body mass index [BMI] 34.0-34.9, adult
CPT/HCPCS: 45378; J0290; J2704; J7120

== ENCOUNTER 2022-01-30 09:52 | Outpatient (CLI) | payer OTHER, SELFPAY ==
[2022-01-30 10:13] LABS: Hematocrit 45.5 % (37.0-47.0); Hemoglobin 14.9 g/dL (12.0-15.0)
[2022-01-30 10:23] LABS: Albumin Level 4.3 g/dL (3.5-5.1); Estimated Glomerular Filt Rate > 60; Glucose 107 mg/dL (65-110)
[2022-01-30 10:38] LABS: Urine Cotinine NEGATIVE
[2022-01-30 10:39] LABS: Hemoglobin A1C 5.7 % (<5.7)
== END 2022-01-30 09:53 | disposition home or self-care (01) ==
PROVIDERS: PCP Nurse Practitioner Adult Health; Visit Provider Orthopaedic Surgery
DX: E78.5 Hyperlipidemia, unspecified (principal); M17.0 Bilateral primary osteoarthritis of knee; E03.9 Hypothyroidism, unspecified; G47.33 Obstructive sleep apnea (adult) (pediatric); Z99.89 Dependence on other enabling machines and devices; Z79.899 Other long term (current) drug therapy
CPT/HCPCS: 80307; 82040; 82565; 82947; 83036; 85014; 85018

== ENCOUNTER 2022-02-25 08:19 | Outpatient (CLI) | payer OTHER, SELFPAY ==
--- NOTE | ~2022-02-25 | CT_ITS ---
EXAMINATION: CT LE RT wo con DATE: 02/25/2022 09:06 INDICATION: Right knee osteoarthritis. TECHNIQUE: Computed tomography (CT) of the right lower limb was performed without intravenous contras t. Automated exposure control and iterative reconstruction technique were employed. The dose-length p roduct was 1773.86 mGy-cm. COMPARISON: Right knee radiographs 10/15/2021 FINDINGS: There is mild right hip osteoarthritis. There is varus angulation at the knee. No fracture. The knee demonstrates severe osteoarthritis of medial compartment, mild osteoarthritis of lateral co mpartment, and moderate osteoarthritis of patellofemoral compartment. There is a small knee joint eff usion. IMPRESSION: 1. Severe right knee osteoarthritis. 2. Small right knee joint effusion. 3. Mild right hip osteoarthritis. Reviewed, dictated and finalized at location A. TENANCE AND CUSTODIAN SUPERVISOR
== END 2022-02-25 08:20 | disposition home or self-care (01) ==
PROVIDERS: PCP Nurse Practitioner Adult Health; Visit Provider Orthopaedic Surgery
DX: M17.11 Unilateral primary osteoarthritis, right knee (principal); M25.461 Effusion, right knee; M16.11 Unilateral primary osteoarthritis, right hip
CPT/HCPCS: 73700

== ENCOUNTER 2022-04-09 12:00 | Outpatient (CLI) | payer OTHER, SELFPAY ==
[2022-04-09 12:33] LABS: Basophils Absolute Auto 0.1 K/mm3 (0.0-0.1); Basophils Percent Auto 1.2 % (0.2-1.2); Eosinophils Absolute Auto 0.3 K/mm3 (0-0.3); Eosinophils Percent Auto 4.5 % (0-4.4); Hematocrit 45.2 % (37.0-47.0); Hemoglobin 15.1 g/dL (12.0-15.0); Immature Granulocyte Absolute 0.01 K/mm3 (0.00-0.031); Immature Granulocyte Percent A 0.2 % (0-0.5); Lymphocytes Percent Auto 21.8 % (18.3-44.2); Mean Corpuscular HGB Conc 33.4 g/dl (32-36); Mean Corpuscular Hemoglobin 30.6 pg (26-34); Mean Corpuscular Volume 91.5 fl (80-100); Mean Platelet Volume 10.6 fl (7.4-10.4); Monocytes Absolute Auto 0.8 K/mm3 (0.1-0.6); Monocytes Percent Auto 12.6 % (2.6-8.5); Neutrophils Absolute Auto 3.6 K/mm3 (1.3-6.7); Neutrophils Percent Auto 59.7 % (45.5-73.1); Platelet Count Result 237 k/mm3 (150-375); Red Blood Count 4.94 M/mm3 (4.2-5.4); Red Cell Distribution Width 12.2 % (11.5-14.5)
[2022-04-09 12:49] LABS: Urine Cotinine NEGATIVE
[2022-04-09 13:01] LABS: Albumin Level 4.2 g/dL (3.5-5.1)
[2022-04-09 13:04] LABS: Anion Gap 6 mmol/L (8-16); Blood Urea Nitrogen 25 mg/dL (7-17); Calcium 9.1 mg/dL (8.4-10.2); Carbon Dioxide 29 mmol/L (22-30); Chloride 102 mmol/L (98-107); Estimated Glomerular Filt Rate > 60; Glucose 101 mg/dL (65-110); Potassium 4.1 mmol/L (3.4-5.0); Sodium 137 mmol/L (137-145)
== END 2022-04-09 12:01 | disposition home or self-care (01) ==
PROVIDERS: Anesthesiology; PCP Family Medicine; Visit Provider Orthopaedic Surgery
DX: M17.11 Unilateral primary osteoarthritis, right knee (principal); E11.9 Type 2 diabetes mellitus without complications; Z01.818 Encounter for other preprocedural examination
CPT/HCPCS: 36415; 80048; 80307; 82040; 85025; 86850; 86900; 86901; 87081

== ENCOUNTER 2022-04-14 00:57 | Day surgery (SDC) | payer OTHER, SELFPAY ==
[2022-04-07 14:24] VITALS: BMI 34.4
--- NOTE | 2022-04-07 14:57 | PC.NURSE ---
Report to the Outpatient Waiting Room, entrance under the green pavilion located off [facility], at time __6:00AM on date ___04/14/22____. Planned Procedure Time: __7:30AM . Time changes happen often and if your time is changed the preop area will call you the afternoon before. - You and your visitor will be asked to self-screen and do not enter if you have any COVID symptoms. - Only one visitor is requested with a max of two and NO children visitors are allowed at this time. - The patient visitor may be requested to leave or wait in car when not with patient due to distancing restrictions. - A mask is optional within the hospital at this time. Patients may have clear liquids (water, carbonated beverages, clear teas, apple juice) until 3 hours prior to surgery with a maximum of 20 ounces. - No food from midnight until time of surgery Take the following medications with a SIP of water the morning of surgery: ___LEVOTHYROXINE DO NOT STOP ANY OF YOUR OTHER PRESCRIPTION MEDICATIONS PRIOR TO SURGERY ?EXCEPT THE FOLLOWING Medications to discontinue per physician ____HOLD ASPIRIN & DICLOFENAC CREAM 7 DAYS PRE-OP PER DR FREEDMAN (PER PATIENT)---- LAST DOSE 04/07/22. HOLD ALL VITAMINS/SUPPLEMENTS 3 DAYS PRE-OP- LAST DOSE 04/10/22 Please no make-up, nail montserratian, hairspray, perfume, deodorant, or body powder the day of surgery. No jewelry (including any body piercings) or valuables the day of surgery, leave them at home. Please take a shower or bath the night before, or the morning of, surgery with an antibacterial soap. Wear comfortable, loose fitting clothing. Children are encouraged to wear pajamas. - Jewelry must be removed prior to entering the operating room. Rings and piercings that are not removed may be cut off. - The hospital will not accept responsibility for valuables. - Please leave all valuables, including medications, at home the day of surgery. If you are going home after surgery, a licensed auto parts delivery driver must drive you home. - NO public transportation without another adult if you receive anesthesia. - We recommend that an adult stay with you for 24 hours following discharge. - We also recommend that you do not drive, make important decision, drink alcoholic beverages, or take any drugs that were not prescribed by your health care provider for at least 24 hours after your discharge time. Follow any additional instructions given to you from your surgeon. If you or anyone in your household have experienced Covid symptoms in the past week, please notify your surgeon or the nurse liaison at the phone number below for possible testing. Telephone instructions given to __PATIENT__and asked if any additional questions and then verbalized understanding. Patient advised to call surgeon office or pre surgery nurse liaison [phone] if any additional questions.
--- NOTE | 2022-04-13 11:42 | WPDANESEPPF ---
Anes - Initial Pre Proc Eval Procedure: Operation Date: 04/14/22 07:30 Proposed Procedures p Right Custom Total Knee Arthroplasty - Devon Onofre MD Date/Time: 04/13/22 11:42 Surgeon: Devon Onofre MD Pre Op Diagnosis: primary oa right knee Patient Data Age: 56 Gender: F Height: 1.68 m Weight: 97 kg Allergies Allergy/AdvReac Type Severity Reaction Status Date / Time kiwi Allergy Severe FACIAL Verified 04/14/22 06:42 SWELLING, SCRATCHY TONGUE [id number] Reductase AdvReac Intermediate INCREASED Verified 04/14/22 06:42 Inhibitor LIVER ENZYMES aspirin AdvReac Mild STOMACH Verified 04/14/22 06:42 PAIN Bleach (Sodium Hypochlorite) AdvReac Mild SKIN Verified 04/14/22 06:42 IRRITATION Home Medications Medication Instructions Recorded Confirmed Type celecoxib 200 mg capsule 200 mg PO HS 12/06/19 04/14/22 History cetirizine 10 mg capsule (All Day 10 mg PO HS 12/06/19 04/14/22 History Allergy (cetirizine)) levothyroxine 75 mcg tablet 75 mcg PO QAM 12/06/19 04/14/22 History (Euthyrox) paroxetine HCl 10 mg tablet 10 mg PO HS 08/27/21 04/14/22 History zinc 50 mg tablet 50 mg PO HS 08/27/21 04/14/22 History aspirin 81 mg tablet,delayed 81 mg PO HS 04/07/22 04/14/22 History release cholecalciferol (vitamin D3) 50 50 mcg PO DAILY 04/07/22 04/14/22 History mcg (2,000 unit) capsule diclofenac sodium 1 % topical gel 1 ea topical BID PRN Pain 04/07/22 04/14/22 History (Arthritis Pain (diclofenac)) metformin 500 mg tablet,extended 500 mg PO HS 04/07/22 04/14/22 History release 24 hr tumeric 100 mg-padilla 150 mg-olive 1 cap PO DAILY 04/14/22 04/14/22 History 50 mg-oreg 150 mg-caprylate capsule Patient hx anesthesia problems: none Family hx anesthesia problems: none Results Review: All pre-operative results and documents have been reviewed as part of the pre-operative evaluation. [facility] Past Medical History Medical History Bilateral primary osteoarthritis of knee Hyperlipidemia Hypothyroidism Obesity SOTO on CPAP Osteoarthritis of both knees Surgical History Surgical History History of total left knee replacement (~09/25/21) Conformis Family History Family History Mother Acute myocardial infarction Family history of arthritis Grandparent Family history of arthritis Father Family history of malignant neoplasm Social History Social History Smoking packs per day: 0.2 Smoking cigarettes per day: 4.0 Years smoked: 20 Smoking pack-years: 4.00 Smoking status: Former smoker Tobacco type: cigarettes Second hand tobacco smoke exposure: No Smoking end date: 09/12/96 Additional smoking assessment comments: SMOKED 1/2 PACK/WEEK X 20 YEARS Alcohol intake: current Drinks per week: 8 Alcohol use details: [place] Substance use: never Substance use type: does not use Other substance usage details: STATES COUPLE TIMES A MONTH TO HELP SLEEP Last use: 09/18/21 Lack of Transportation: No Lack of Food: Never True Current Housing: I Have Housing Concerned About Future Housing: No Difficulty Paying Gas/Electric Bills: No Difficulty Paying for Meds: No Currently Unemployed: No Education: Associate Degree Difficulty w/ Childcare or Family Care: No Living arrangements: with family Additional living arrangements comments: HUSB Spiritual care concerns: No Anes - Eval Final PreProcedure Day of Procedure 04/13/22 11:42 Patient weight: obese Heart: regular rate and rhythm Lungs: clear to auscultation Airway: Mallampati scale class II Neurological: alert and oriented Last oral intake: >/= 8 hours ASA classification: III Emergent: no Anesthetic plan: pro
[2022-04-14] VITALS (15 sets, daily range): BP systolic 125–152; BP diastolic 59–94; PULSE 69–97; RESP 12–20; TEMP 36.2–36.9; O2SAT 88–99
--- NOTE | ~2022-04-14 | XR_ITS ---
EXAMINATION: XR knee RT 2V DATE: 04/14/2022 10:19 INDICATION: Right knee arthroplasty. Postop. TECHNIQUE: 2 views of right knee were obtained. COMPARISON: Right knee radiograph 09/01/2018 FINDINGS: There is a total right knee arthroplasty with patellar resurfacing. Tibia demonstrate 6 deg anitha medial angulation with respect to tibial component. No fracture. There is gas in the knee joint and soft tissues, consistent with recent surgery. IMPRESSION: 1. New total right knee arthroplasty. Reviewed, dictated and finalized at location A. N RECEIVER
[2022-04-14] MEDS: ACETAMINOPHEN 500 MG TABLET 1000 MG PO (06:46)
[2022-04-14] MEDS: LACTATED RINGERS 1,000 ML 30 ML IV CONT ×2 (07:02→10:08)
[2022-04-14 07:03] LABS: Glucose Point of Care 93 mg/dl (65-105)
[2022-04-14] MEDS: TRANEXAMIC ACID 1,000MG/ISO100 1,000 MG/100 ML BAG 200 MG IVPB (07:04)
--- NOTE | 2022-04-14 07:25 | WPDHPUPDATE1 ---
History and Physical Update Update Date/Time: 04/14/22 07:25 History and Physical has been reviewed, including an updated exam of the patient. There are NO changes in the patient's condition. Risks, benefits, and alternatives have been discussed and questions answered. Patient agrees to proceed with procedure.
--- NOTE | 2022-04-14 07:27 | WPDANESPNB ---
Anes - Peripheral Nerve Block Date/Time: 04/14/22 07:27 I have discussed with the patient/family/POA the placement of a peripheral nerve block for post-operative pain management, including associated risks, benefits, complications, and side effects. Alternative methods of post-operative analgesia were detailed. Questions were solicited and answers provided to the satisfaction of the patient/family/POA. Time-Out: A pre-procedural Time-Out was completed immediately before starting the procedure and confirmed: Patient Identification, Site, Procedure, Patient Position and the Availability of Requisite Equipment. Clinical Indications: Acute post-operative pain management requested by the operative surgeon. Nerve Block Insertion Note Anes-nerve block: adductor canal right Patient position: supine Skin prep: chlorhexidine Needle: 22 gauge, stimulating, insulated echogenic needle. Needle length: 80 mm Technique: ultrasound Injectate: bupivacaine 0.5% with epi 5 mcg/ml (30cc - no epi) Observations: tolerated well Complications: none Procedure start time:: 722 Procedure end time:: 725
[2022-04-14] MEDS: ceFAZolin 2 GM/D5W 50 ML 2 GM/50 ML BAG IVPB ×3 (07:30→23:35)
[2022-04-14] MEDS: fentaNYL CITRATE INJ (*CRX) 100 MCG/2 ML VIAL 25 MCG IV PUSH ×2 (10:24→10:38)
--- NOTE | 2022-04-14 11:47 | ADMGEN ---
This patient, Gilma Barahona, was admitted to 2 Medical Room 260-. Patient/family oriented to hospital policies and general routines including ID bracelet, bed and alarms, visiting hours, pain management, procedures, bathroom and other care routines, personal items, smoking policy, room service/diet, and visiting hours. Information on how to activate the Rapid Response Team has been discussed. Patient/Family are encouraged to report perceived risks to care and to ask questions if they do not understand what they are told or what they should do.
[2022-04-14] MEDS: polyethylene glycoL 3350 17 GM POWD.PACK PO (12:02)
[2022-04-14] MEDS: oxyCODONE HCL (*CRX) 5 MG TAB IR 10 MG PO (12:27)
--- NOTE | 2022-04-14 15:17 | P.OP_ITS ---
Procedure Note - Detailed Date of Procedure 04/14/22 Pre-op Diagnosis primary oa right knee Post-op Diagnosis Same Procedure Performed Total knee arthroplasty, right. Surgeon Devon Onofre MD Sand Miller Estrella Leblanc PA-C Anesthesia General and Regional (Subsartorial block.) Findings Severe varus degenerative arthritis. Excellent bone quality. Semi custom conformis knee. Posterior stabilized. Description of Procedure Preoperative antibiotics were given. The limb was prepped and draped in the usual sterile fashion with a well-padded tourniquet high on the thigh. The limb was exsanguinated and the tourniquet inflated to 300 mmHg. A longitudinal incision was created just medial to the patella. A trivector approach to the knee was performed. Arthrotomy was taken down through the joint capsule. No significant releases were initially taken. The femur was exposed and the F1 jig was applied. The coring tool was used to remove the cartilage for the F2 jig to sit flush with the bone. The jig was pinned and the distal cut carefully taken. Caliper measurements confirmed appropriate bony resections according to the preoperative templated plan. The F4 cutting jig for the femur was applied, at the standard rotation. The AP and anterior chamfer cuts were taken. The F5 jig was applied and the posterior chamfer cuts were taken, followed by the box cut. The tibia was prepared using the T1 jig, after removing cartilage for the jig contact points. Proper alignment was checked with the alignment maxwell. The tibia was cut using the T1u guide. Gap balancing was performed. Gap measurements were taken and the knee was trialed. Excellent alignment and soft tissue balancing was confirmed. The posterior cruciate ligament was resected. The patella was cut for resurfacing. Three lug holes were drilled. Meniscal remnants were removed. The trial components were assembled. Excellent range of motion and proper soft tissue balancing were confirmed throughout the full range of motion. Patellar tracking was excellent. The knee was copiously irrigated periodically throughout the procedure. The real implants were cemented into position. Excess cement was carefully removed. The wound was closed in layers with interrupted #1 Vicryl suture, 2-0 strata fix suture, 0 strata fix suture, 2-0 strata fix suture. Steri-Strips placed on the skin with the knee flexed. Sterile bulky dressing applied. The patient was brought to the recovery room in stable condition. There were no complications. Physician assistant manager bilingual, Estrella Leblanc PA-C, required for surgery; including patient positioning, draping, tissue retraction, maintaining instrument position, wound closure, and dressing placement. Implants Conformis Imprint total knee arthroplasty. Cemented. Posterior stabilized. 6 mm insert. 35 mm round patella. Estimated Blood Loss -50.0 Drains No Complications No immediate complications Condition Stable Disposition PACU [facility] Billing Surgery - Charge Forward: Surgery Billing
[2022-04-14] MEDS: SENNA/DOCUSATE SODIUM TABLET 2 TAB PO (17:20)
[2022-04-14] MEDS: ASPIRIN 81 MG ENTERIC TABLET PO (17:20)
[2022-04-14] MEDS: PARoxetine 10 MG TABLET PO (20:44)
[2022-04-14] MEDS: CELECOXIB 200 MG CAPSULE PO (20:44)
[2022-04-14] MEDS: metFORMIN HCL XR 500 MG TAB.SR.24H PO (20:44)
[2022-04-14] MEDS: oxyCODONE HCL (*CRX) 5 MG TAB IR PO (20:44)
[2022-04-14] MEDS: FAMOTIDINE 20 MG TABLET PO (20:44)
[2022-04-14] MEDS: CYCLOBENZAPRINE HCL 10 MG TABLET PO (23:42)
[2022-04-15 01:33] VITALS: BP 119/64; PULSE 60; RESP 16; TEMP 36.6; O2SAT 100
[2022-04-15] MEDS: oxyCODONE HCL (*CRX) 5 MG TAB IR 10 MG PO ×2 (04:14→10:05)
[2022-04-15 05:22] LABS: Basophils Percent Auto 0.3 % (0.2-1.2); Eosinophils Percent Auto 0.2 % (0-4.4); Hematocrit 34.4 % (37.0-47.0); Immature Granulocyte Absolute 0.03 K/mm3 (0.00-0.031); Immature Granulocyte Percent A 0.3 % (0-0.5); Lymphocytes Absolute Auto 1.24 K/mm3 (0.9-3.2); Lymphocytes Percent Auto 14.3 % (18.3-44.2); Mean Corpuscular Volume 93.7 fl (80-100); Mean Platelet Volume 10.7 fl (7.4-10.4); Neutrophils Absolute Auto 6.3 K/mm3 (1.3-6.7); Neutrophils Percent Auto 72.9 % (45.5-73.1); Platelet Count Result 190 k/mm3 (150-375); Red Blood Count 3.67 M/mm3 (4.2-5.4); Red Cell Distribution Width 12.1 % (11.5-14.5); White Blood Count 8.7 K/mm3 (4.5-10.0)
[2022-04-15 05:34] LABS: Anion Gap 0 mmol/L (8-16); Blood Urea Nitrogen 16 mg/dL (7-17); Calcium 8.8 mg/dL (8.4-10.2); Carbon Dioxide 30 mmol/L (22-30); Chloride 103 mmol/L (98-107); Estimated CRCL calculation 89 ml/min; Estimated Glomerular Filt Rate > 60; Glucose 109 mg/dL (65-110); Potassium 4.3 mmol/L (3.4-5.0); Sodium 133 mmol/L (137-145)
[2022-04-15] MEDS: ceFAZolin 2 GM/D5W 50 ML 2 GM/50 ML BAG IVPB (06:25)
[2022-04-15] MEDS: LEVOTHYROXINE SODIUM 75 MCG TABLET PO (06:25)
[2022-04-15 06:35] VITALS: BP 126/70; PULSE 67; RESP 16; TEMP 36.6; O2SAT 95
--- NOTE | 2022-04-15 09:46 | PM.DS ---
DS: Admitting Diagnosis Discharge Date 04/15/22 Admitting Diagnosis OA knee Right DS: Discharge Diagnosis Discharge Diagnosis (1) Status post total right knee replacement: Code(s): Z96.651 - Presence of right artificial knee joint Status: Acute Assessment and Plan: Postop day 1: Right total knee arthroplasty. Patient tolerated procedure well. No complications. Pain manageable with pain medication. No numbness or tingling. We had a lengthy discussion regarding postoperative wound care, limitations, expectations, and exercises. Patient shows good understanding. She has had initial physical therapy and is tolerating it well. DVT prophylaxis: 81 mg baby aspirin b.i.d. for 14 days. Pain medication: Percocet. Prednisone. Patient has followup appointment with Dr. Onofre in 3 weeks. DS: Summary Hospital Course Reason for hospitalization: Total knee arthroplasty Hospital Course: Patient tolerated procedure well. Has had initial PT/OT. No complications. Pain well managed. Status at Discharge Functional status at discharge: uses cane/walker Overall status at discharge: patient is progressing back to baseline Time Spent with Patient Time attestation: Total time spent providing and/or coordinating discharge services: Exam Narrative: Overweight 56 y/o female. Resting comfortably in bed. No acute distress. A&O x3. Wearing compression socks bilaterally. Dressing intact with no drainage. Mild swelling. No ecchymosis. No erythema. No hematoma. Good early range of motion. Calf nontender. Neurologic status intact. No varicosities. Distal pulses palpable. DS: Data Data Completed and Pending Labs on day of discharge: Labs from last 24 hours 04/15/22 04/15/22 05:09 05:09 WBC 8.7 RBC 3.67 L Hgb 11.0 L D Hct 34.4 L MCV 93.7 MCH 30.0 MCHC 32.0 RDW 12.1 Plt Count 190 MPV 10.7 H Immature Gran % (Auto) 0.3 Neut % (Auto) 72.9 Lymph % (Auto) 14.3 L [place] % (Auto) 12.0 H Eos % (Auto) 0.2 Baso % (Auto) 0.3 Lymph # (Auto) 1.24 [place] # (Auto) 1.0 H Eos # (Auto) 0.0 Baso # (Auto) 0.0 Abs Immat Gran (auto) 0.03 Absolute Neuts (auto) 6.3 Absolute Nucleated RBC 0.0 Nucleated RBC % 0.0 Sodium 133 L Potassium 4.3 Chloride 103 Carbon Dioxide 30 Anion Gap 0 L BUN 16 Creatinine 0.70 Estim Creat Clear Calc 89 Estimated GFR > 60 Glucose 109 Calcium 8.8 Discharge Plan Discharge Patient Disposition: Home, Self-Care Discharge Instructions: See green instruction sheets. Stand Alone Forms: General Discharge Instructions Follow-up/Referrals: Estrella Leblanc PA [Physician T[employer] Installer] - Discharge Medications: New aspirin 81 mg tablet,delayed release (DR/EC) 81 mg PO BID 14 Days Qty: 28 0RF prednisone 5 mg tablet 5 mg PO DAILY 21 Days Qty: 21 0RF oxycodone-acetaminophen 5-325 mg tablet 1 - 2 tablet PO Q4-6H MDD 6 PRN (Reason: pain) Qty: 30 0RF Continued levothyroxine [Euthyrox] 75 mcg tablet 75 mcg PO QAM celecoxib 200 mg capsule 200 mg PO HS All Day Allergy (cetirizine) 10 mg capsule 10 mg PO HS paroxetine HCl 10 mg Tablet 10 mg PO HS zinc 50 mg Tablet 50 mg PO HS metformin 500 mg tablet extended release 24 hr 500 mg PO HS cholecalciferol (vitamin D3) 50 mcg (2,000 unit) Capsule 50 mcg PO DAILY diclofenac sodium [Arthritis Pain (diclofenac)] 1 % gel 1 ea TOPICAL BID PRN (Reason: Pain) ykodlmm-iuci-yuiba-oreg-capryl 100 mg-150 mg- 50 mg-150 mg Capsule 1 cap PO DAILY Held aspirin 81 mg Tablet,Delayed Release (Dr/Ec) 81 mg PO HS Hold Instructions: Resume on 04/28/22. take twice a day for 2 weeks then resume.
[2022-04-15] MEDS: SENNA/DOCUSATE SODIUM TABLET 2 TAB PO (10:42)
[2022-04-15] MEDS: predniSONE 5 MG TABLET PO (10:42)
[2022-04-15] MEDS: ASPIRIN 81 MG ENTERIC TABLET PO (10:43)
[2022-04-15] MEDS: polyethylene glycoL 3350 17 GM POWD.PACK PO (10:43)
[2022-04-15] MEDS: FAMOTIDINE 20 MG TABLET PO (10:43)
[2022-04-15 11:06] VITALS: BP 127/67; PULSE 68; RESP 16; TEMP 36.3; O2SAT 98
== END 2022-04-15 12:55 | disposition home or self-care (01) ==
LOC: ANHSURGERY 09:20 → ANH2MED 11:28
PROVIDERS: Physician Assistant Surgical; PCP Family Medicine; Visit Provider Orthopaedic Surgery
PROC: (CPT 27447; principal; 2022-04-14 07:30)
DX: M17.11 Unilateral primary osteoarthritis, right knee (principal); G89.18 Other acute postprocedural pain; E78.5 Hyperlipidemia, unspecified; E03.9 Hypothyroidism, unspecified; G47.33 Obstructive sleep apnea (adult) (pediatric); Z79.84 Long term (current) use of oral hypoglycemic drugs; Z79.82 Long term (current) use of aspirin; E66.9 Obesity, unspecified; Z68.34 Body mass index [BMI] 34.0-34.9, adult; Z87.891 Personal history of nicotine dependence
CPT/HCPCS: 27447; 64447; 36415; 73560; 80048; 80307; 82040; 82948; 85025; 86850; 86900; 86901; 87081; 97110; 97116; 97161; 97165; 97530; A9270; C1713; C1776; J0131; J0171; J0690; J1100; J1170; J1885; J2250; J2270; J2405; J2704; J2795; J3010; J7120; J7512

== ENCOUNTER 2022-07-20 13:56 | Outpatient (CLI) | payer OTHER, SELFPAY ==
[2022-07-20 14:49] LABS: Basophils Absolute Auto 0.1 K/mm3 (0.0-0.1); Basophils Percent Auto 0.8 % (0.2-1.2); Eosinophils Absolute Auto 0.3 K/mm3 (0-0.3); Eosinophils Percent Auto 4.6 % (0-4.4); Hematocrit 40.6 % (37.0-47.0); Hemoglobin 13.5 g/dL (12.0-15.0); Immature Granulocyte Absolute 0.02 K/mm3 (0.00-0.031); Immature Granulocyte Percent A 0.3 % (0-0.5); Lymphocytes Absolute Auto 1.52 K/mm3 (0.9-3.2); Mean Corpuscular HGB Conc 33.3 g/dl (32-36); Mean Corpuscular Volume 90.2 fl (80-100); Mean Platelet Volume 10.8 fl (7.4-10.4); Monocytes Absolute Auto 0.8 K/mm3 (0.1-0.6); Monocytes Percent Auto 12.1 % (2.6-8.5); Neutrophils Absolute Auto 3.7 K/mm3 (1.3-6.7); Neutrophils Percent Auto 58.2 % (45.5-73.1); Platelet Count Result 269 k/mm3 (150-375); Red Cell Distribution Width 12.2 % (11.5-14.5); White Blood Count 6.3 K/mm3 (4.5-10.0)
[2022-07-20 15:09] LABS: Iron 102 ug/dL (37-170)
[2022-07-20 15:19] LABS: Percent Iron Saturation 28 % (20-50)
== END 2022-07-20 13:57 | disposition home or self-care (01) ==
PROVIDERS: PCP Family Medicine; Visit Provider Internal Medicine Hematology & Oncology
DX: E83.19 Other disorders of iron metabolism (principal)
CPT/HCPCS: 36415; 82728; 83540; 83550; 85025

== ENCOUNTER 2022-11-12 14:52 | Outpatient (CLI) | payer OTHER, SELFPAY ==
--- NOTE | ~2022-11-12 | DEXA_ITS ---
Bone Density Report Name: DOMINGO COLVIN Age: 56 Sex: Female Ethnicity: White Date of : 1965 Indication: postmenopausal; screening for osteoporosis; height loss; Referring Provider: TOMASZ, LUIS Study: Bone densitometry was performed. Exam Date: November 12, 2022 Accession number: [id number] Bone Density: Region BMD T-score Z-score Classification AP Spine(L1-L4) 0.889 -1.4 -0.1 Osteopenia Femoral Neck (Left) 0.820 -0.3 1.0 Normal Total Hip (Left) 0.955 0.1 1.0 Normal Femoral Neck (Right) 0.854 0.0 1.3 Normal Total Hip (Right) 0.921 -0.2 0.7 Normal Total Hip Mean 0.938 -0.1 0.9 Normal World Health Organization criteria for BMD impression classify patients as: Normal (T-score at or above -1.0), Osteopenia (T-score between -1.0 and -2.5), or Osteoporosis (T-score at or below -2.5). 10-year Fracture Risk(1): Major Osteoporotic Fracture 5.8% Hip Fracture 0.1% Reported Risk Factors: [place] (), Neck BMD=0.820, BMI=34.1 (1) FRAX(R) Version 3.08. Fracture probability calculated for an untreated patient. Fracture probability may be lower if the patient has received treatment. Clinical Information Provided by Patient: Has used the following medications: Vitamin D Patient maximum height was 66 Menopause Age: 48 No regular weight bearing exercise Drinks caffeinated beverages Onset of menses at age 11 Number of children 1 Impression: The patient has low bone mass, based on the Total Spine T-score. The patient has an estimated ten-year risk of hip fracture of 0.1% and an estimated ten-year risk of major fracture of 5.8%, based on the WHO FRAX algorithm. Discussion: BONE DENSITY IS LOW AT ONE OR MORE SKELETAL SITES. This patient's lowest T-score is low at one or more skeletal sites. It meets the World Health Organization's (WHO) criteria for ?low bone mass? (T-score between -1.0 and -2.5). The patient's 10-year risk of fracture as calculated by FRAX is less than the threshold where pharmacological therapy is recommended by the National Osteoporosis Foundation (NOF). However, all treatment decisions require clinical judgment and consideration of individual patient factors, including patient preferences, comorbidities, previous drug use, risk factors not captured in the FRAX model (e.g., frailty, falls, vitamin D deficiency, increased bone turnover, interval significant decline in bone density) and possible under or overestimation of fracture risk by FRAX. The patient should follow a healthful lifestyle (good nutrition with adequate calcium and vitamin D, and appropriate weight-bearing exercise). Follow-Up: Consider repeating this study in 2 to 3 years to reassess this patient's status, or sooner if there is some new clinical indication. Reported by: DO
--- NOTE | ~2022-11-12 | MM_ITS ---
EXAMINATION: MM screening jonny BI w alicia HISTORY: Screening mammogram TECHNIQUE: Craniocaudal and mediolateral oblique 3-D tomosynthesis images were obtained and synthetic 2-D images were generated. CAD analysis was submitted and interpreted. COMPARISON: 422, 05/16/2020, 12/31/2018 BREAST PARENCHYMAL COMPOSITION:There are scattered areas of fibroglandular density. FINDINGS: No suspicious mass, calcification, or architectural distortion are identified in either hernando ast to suggest malignancy. There has been no suspicious interval change. IMPRESSION: No mammographic evidence of malignancy. Recommend routine screening mammography in one year. BI-RADS Category 1: Negative Reviewed, dictated and finalized at location .
== END 2022-11-12 14:53 | disposition home or self-care (01) ==
PROVIDERS: Visit Provider Nurse Practitioner
DX: Z12.31 Encounter for screening mammogram for malignant neoplasm of breast (principal); Z78.0 Asymptomatic menopausal state; M85.88 Other specified disorders of bone density and structure, other site
CPT/HCPCS: 77063; 77067; 77080

== ENCOUNTER 2023-02-26 13:30 | Outpatient (CLI) | payer OTHER, SELFPAY ==
[2023-02-26 13:52] LABS: Basophils Percent Auto 0.8 % (0.2-1.2); Eosinophils Absolute Auto 0.2 K/mm3 (0-0.3); Hemoglobin 13.9 g/dL (12.0-15.0); Immature Granulocyte Absolute 0.03 K/mm3 (0.00-0.031); Immature Granulocyte Percent A 0.6 % (0-0.5); Lymphocytes Absolute Auto 1.24 K/mm3 (0.9-3.2); Lymphocytes Percent Auto 25.7 % (18.3-44.2); Mean Corpuscular HGB Conc 32.3 g/dl (32-36); Mean Corpuscular Hemoglobin 29.7 pg (26-34); Mean Corpuscular Volume 91.9 fl (80-100); Mean Platelet Volume 10.1 fl (7.4-10.4); Monocytes Absolute Auto 0.8 K/mm3 (0.1-0.6); Monocytes Percent Auto 16.8 % (2.6-8.5); Neutrophils Absolute Auto 2.5 K/mm3 (1.3-6.7); Neutrophils Percent Auto 51.1 % (45.5-73.1); Platelet Count Result 245 k/mm3 (150-375); Red Blood Count 4.68 M/mm3 (4.2-5.4); Red Cell Distribution Width 12.8 % (11.5-14.5); White Blood Count 4.8 K/mm3 (4.5-10.0)
[2023-02-26 16:32] LABS: Iron 142 ug/dL (37-170)
[2023-02-26 16:34] LABS: Alanine Aminotransferase 44 U/L (6-35); Albumin Level 4.1 g/dL (3.5-5.1); Alkaline Phosphatase 92 U/L (38-126); Anion Gap 3 mmol/L (8-16); Aspartate Amino Transferase 42 U/L (14-36); Bilirubin,Total 0.5 mg/dL (0.2-1.3); Blood Urea Nitrogen 16 mg/dL (7-17); Calcium 9.8 mg/dL (8.4-10.2); Carbon Dioxide 31 mmol/L (22-30); Chloride 101 mmol/L (98-107); Estimated Glomerular Filt Rate > 60; Glucose 89 mg/dL (65-110); Potassium 4.9 mmol/L (3.4-5.0); Sodium 135 mmol/L (137-145)
[2023-02-26 16:42] LABS: Percent Iron Saturation 42 % (20-50)
== END 2023-02-26 13:31 | disposition home or self-care (01) ==
LOC: ANHLAB 13:36
PROVIDERS: Visit Provider Internal Medicine Hematology & Oncology
DX: E83.19 Other disorders of iron metabolism (principal)
CPT/HCPCS: 36415; 80053; 82728; 83540; 83550; 85025

== ENCOUNTER 2023-05-18 14:52 | Outpatient (CLI) | payer OTHER, SELFPAY ==
--- NOTE | ~2023-05-18 | XR_ITS ---
Right wrist Technique: PA, oblique, lateral, and ulnar deviation views were obtained. Clinical History: Pain Findings: No acute fracture or dislocation is seen. Osseous alignment is anatomic. Joint spaces are p reserved. Soft tissues are unremarkable. Impression: Unremarkable right wrist radiographs. Reviewed, dictated and finalized at location . 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
== END 2023-05-18 14:53 | disposition home or self-care (01) ==
PROVIDERS: Visit Provider Orthopaedic Surgery
DX: M25.531 Pain in right wrist (principal)
CPT/HCPCS: 73110

== ENCOUNTER 2023-09-01 15:15 | Outpatient (CLI) | payer OTHER, SELFPAY ==
[2023-09-01 15:36] LABS: Basophils Absolute Auto 0.1 K/mm3 (0.0-0.1); Basophils Percent Auto 0.9 % (0.2-1.2); Eosinophils Absolute Auto 0.3 K/mm3 (0-0.3); Eosinophils Percent Auto 4.8 % (0-4.4); Hematocrit 44.6 % (37.0-47.0); Hemoglobin 14.7 g/dL (12.0-15.0); Immature Granulocyte Absolute 0.02 K/mm3 (0.00-0.031); Immature Granulocyte Percent A 0.4 % (0-0.5); Lymphocytes Percent Auto 24.9 % (18.3-44.2); Mean Corpuscular Hemoglobin 29.9 pg (26-34); Mean Corpuscular Volume 90.7 fl (80-100); Mean Platelet Volume 10.4 fl (7.4-10.4); Monocytes Absolute Auto 0.7 K/mm3 (0.1-0.6); Monocytes Percent Auto 12.4 % (2.6-8.5); Neutrophils Absolute Auto 3.2 K/mm3 (1.3-6.7); Neutrophils Percent Auto 56.6 % (45.5-73.1); Platelet Count Result 241 k/mm3 (150-375); Red Blood Count 4.92 M/mm3 (4.2-5.4); Red Cell Distribution Width 12.5 % (11.5-14.5); White Blood Count 5.6 K/mm3 (4.5-10.0)
[2023-09-01 17:56] LABS: Iron 86 ug/dL (37-170)
[2023-09-01 18:06] LABS: Percent Iron Saturation 25 % (20-50)
== END 2023-09-01 15:16 | disposition home or self-care (01) ==
LOC: ANHLAB 15:20
PROVIDERS: Visit Provider Internal Medicine Hematology & Oncology
DX: E83.19 Other disorders of iron metabolism (principal)
CPT/HCPCS: 36415; 82728; 83540; 83550; 85025

== ENCOUNTER 2023-09-06 13:21 | Outpatient (CLI) | payer OTHER, SELFPAY ==
[2023-09-06 13:33] LABS: Basophils Absolute Auto 0.1 K/mm3 (0.0-0.1); Eosinophils Absolute Auto 0.3 K/mm3 (0-0.3); Eosinophils Percent Auto 6.1 % (0-4.4); Hematocrit 44.9 % (37.0-47.0); Hemoglobin 14.9 g/dL (12.0-15.0); Immature Granulocyte Absolute 0.02 K/mm3 (0.00-0.031); Immature Granulocyte Percent A 0.4 % (0-0.5); Lymphocytes Absolute Auto 1.45 K/mm3 (0.9-3.2); Lymphocytes Percent Auto 27.6 % (18.3-44.2); Mean Corpuscular HGB Conc 33.2 g/dl (32-36); Mean Corpuscular Hemoglobin 30.4 pg (26-34); Mean Corpuscular Volume 91.6 fl (80-100); Mean Platelet Volume 10.3 fl (7.4-10.4); Monocytes Absolute Auto 0.8 K/mm3 (0.1-0.6); Monocytes Percent Auto 14.4 % (2.6-8.5); Neutrophils Absolute Auto 2.7 K/mm3 (1.3-6.7); Neutrophils Percent Auto 50.5 % (45.5-73.1); Platelet Count Result 252 k/mm3 (150-375); Red Cell Distribution Width 12.4 % (11.5-14.5); White Blood Count 5.3 K/mm3 (4.5-10.0)
[2023-09-06 17:29] LABS: LDL Cholesterol Direct 113 mg/dL
[2023-09-06 17:30] LABS: Alanine Aminotransferase 49 U/L (6-35); Albumin Level 4.5 g/dL (3.5-5.1); Alkaline Phosphatase 93 U/L (38-126); Anion Gap 6 mmol/L (4-12); Aspartate Amino Transferase 45 U/L (14-36); Bilirubin,Total 0.6 mg/dL (0.2-1.3); Blood Urea Nitrogen 16 mg/dL (7-17); Calcium 9.9 mg/dL (8.4-10.2); Carbon Dioxide 26 mmol/L (22-30); Chloride 104 mmol/L (98-107); Cholesterol 322 mg/dL (0-200); Estimated Glomerular Filt Rate > 60; Glucose 95 mg/dL (65-110); Potassium 4.4 mmol/L (3.4-5.0); Sodium 136 mmol/L (137-145); Triglycerides 61 mg/dL (<150)
[2023-09-06 17:31] LABS: HDL Direct 181 mg/dL
[2023-09-06 19:17] LABS: Hemoglobin A1C 5.4 % (<5.7)
== END 2023-09-06 13:22 | disposition home or self-care (01) ==
LOC: ANHLAB 13:23
PROVIDERS: PCP Nurse Practitioner Adult Health; Visit Provider Nurse Practitioner Adult Health
DX: E78.5 Hyperlipidemia, unspecified (principal)
CPT/HCPCS: 36415; 80053; 80061; 83036; 84443; 85025

== ENCOUNTER 2023-09-08 12:00 | Emergency (ER) | payer OTHER, SELFPAY ==
[2023-09-08 12:10] VITALS: BP 166/107; PULSE 68; RESP 18; TEMP 36.4; O2SAT 100
--- NOTE | 2023-09-08 12:28 | ED.SKABFB ---
HPI - Skin/Abscess/Foreign Bdy General Chief complaint: Skin/Abscess/Foreign Body Stated complaint: Boil on Abdomen Time Seen by Provider: 09/08/23 12:18 Source: patient and RN notes reviewed Mode of arrival: ambulatory Limitations: no limitations History of Present Illness HPI narrative: Patient presents today complaining of an abscess to her left groin area. She noticed a lump to the area approximately 1 week ago but also a rash to the area. She was told by a provider that saw the area that there is a yeast infection and prescribed her nystatin 2 days ago. Yesterday she shaved and nicked the area that started to drain. Denies history of MRSA or abscesses/boils Related Data Home Medications Medication Instructions Recorded Confirmed cetirizine 10 mg capsule (All Day 10 mg PO HS 12/06/19 09/08/23 Allergy (cetirizine)) levothyroxine 75 mcg tablet 75 mcg PO QAM 12/06/19 09/08/23 (Euthyrox) paroxetine HCl 10 mg tablet 10 mg PO HS 08/27/21 09/08/23 zinc 50 mg tablet 50 mg PO HS 08/27/21 09/08/23 cholecalciferol (vitamin D3) 50 50 mcg PO DAILY 04/07/22 09/08/23 mcg (2,000 unit) capsule metformin 500 mg tablet,extended 500 mg PO HS 04/07/22 09/08/23 release 24 hr turmeric 100 mg-padilla 150 1 cap PO DAILY 04/14/22 09/08/23 mg-olive 50 mg-oreg 150 mg-capryl capsule Allergies Allergy/AdvReac Type Severity Reaction Status Date / Time kiwi Allergy Severe FACIAL Verified 09/08/23 12:04 SWELLING, SCRATCHY TONGUE Sfaimvl-EIO-IjS Reductase AdvReac Intermediate INCREASED Verified 09/08/23 12:04 Inhibitor LIVER ENZYMES aspirin AdvReac Mild STOMACH Verified 09/08/23 12:04 PAIN Bleach (Sodium Hypochlorite) AdvReac Mild SKIN Verified 09/08/23 12:04 IRRITATION PMFSH Past Medical History Medical History Bilateral primary osteoarthritis of knee Hyperlipidemia Hypothyroidism Obesity SOTO on CPAP Osteoarthritis of both knees Surgical History Surgical History History of total left knee replacement (~09/25/21) Conformis History of total right knee replacement (~04/14/22) Family History Family History Mother Acute myocardial infarction Family history of arthritis Grandparent Family history of arthritis Father Family history of malignant neoplasm Social History Social History Smoking packs per day: 0.2 Smoking cigarettes per day: 4.0 Years smoked: 20 Smoking pack-years: 4.00 Smoking status: Former smoker Tobacco type: cigarettes Second hand tobacco smoke exposure: No Smoking end date: 09/12/96 Additional smoking assessment comments: SMOKED 1/2 PACK/WEEK X 20 YEARS Alcohol intake: current Drinks per week: 8 Alcohol use details: [place] Substance use: current Substance use type: marijuana Other substance usage details: STATES COUPLE TIMES A MONTH TO HELP SLEEP gummies Last use: 09/18/21 Do You Feel Safe in your Home?: Yes Lack of Transportation: No Lack of Food: Never True Current Housing: I Have Housing Concerned About Future Housing: No Difficulty Paying Gas/Electric Bills: No Difficulty Paying for Meds: No Currently Unemployed: No Education: Associate Degree Difficulty w/ Childcare or Family Care: No Living arrangements: with family Additional living arrangements comments: [facility] Spiritual care concerns: No Comments At time of signature, I have reviewed and agree with nursing past medical, surgical, social and family history unless otherwise noted. Please see nursing chart for further information. There is no relevant family history pertinent to the presenting complaint Exam Narrative: GENERAL: Well-appearing, well-nourished, and in no acute distress. HEAD: Normocep
== END 2023-09-08 12:40 | disposition home or self-care (01) ==
PROVIDERS: Emergency Provider Nurse Practitioner; PCP Nurse Practitioner Adult Health
DX: L02.214 Cutaneous abscess of groin (principal); Z87.891 Personal history of nicotine dependence; E78.5 Hyperlipidemia, unspecified; E03.9 Hypothyroidism, unspecified; E66.9 Obesity, unspecified; Z68.34 Body mass index [BMI] 34.0-34.9, adult; M17.0 Bilateral primary osteoarthritis of knee
CPT/HCPCS: 87070; 87075; 87076; 87081; 87181; 87205; 99213; G0463

== ENCOUNTER 2023-09-17 12:09 | Emergency (ER) | payer OTHER, SELFPAY ==
[2023-09-17 12:29] VITALS: BP 148/114; PULSE 73; RESP 20; TEMP 36.3; O2SAT 99
[2023-09-17 12:38] VITALS: BP 138/106
--- NOTE | 2023-09-17 13:25 | ED.WOUNDLAC ---
HPI - Wound/Laceration General Chief Complaint: Wound/Laceration Stated Complaint: left side lesion still oozing Time Seen by Provider: 09/17/23 13:26 Source: patient, RN notes reviewed and old records reviewed Mode of arrival: ambulatory Limitations: no limitations History of Present Illness HPI narrative: 57-year-old female presents to the [facility] with a left-sided lesion that was opened several days ago. Reports that was an abscess still draining clear yellow fluid. States it looks much better but wanted someone to look at it. Related Data Home Medications Medication Instructions Recorded Confirmed cetirizine 10 mg capsule (All Day 10 mg PO HS 12/06/19 09/08/23 Allergy (cetirizine)) levothyroxine 75 mcg tablet 75 mcg PO QAM 12/06/19 09/08/23 (Euthyrox) paroxetine HCl 10 mg tablet 10 mg PO HS 08/27/21 09/08/23 zinc 50 mg tablet 50 mg PO HS 08/27/21 09/08/23 cholecalciferol (vitamin D3) 50 50 mcg PO DAILY 04/07/22 09/08/23 mcg (2,000 unit) capsule metformin 500 mg tablet,extended 500 mg PO HS 04/07/22 09/08/23 release 24 hr turmeric 100 mg-padilla 150 1 cap PO DAILY 04/14/22 09/08/23 mg-olive 50 mg-oreg 150 mg-capryl capsule evolocumab 420 mg/3.5 mL mg subcut 09/17/23 subcutaneous wearable injector (Repatha Pushtronex) Allergies Allergy/AdvReac Type Severity Reaction Status Date / Time kiwi Allergy Severe FACIAL Verified 09/17/23 12:19 SWELLING, SCRATCHY TONGUE Jkrjnpt-[id number]-[id number] Reductase AdvReac Intermediate INCREASED Verified 09/17/23 12:19 Inhibitor LIVER ENZYMES aspirin AdvReac Mild STOMACH Verified 09/17/23 12:19 PAIN Bleach (Sodium Hypochlorite) AdvReac Mild SKIN Verified 09/17/23 12:19 IRRITATION Review of Systems Review of Systems: All systems reviewed & are unremarkable except as noted in HPI and below Constitutional: Constitutional: Reports no additional constitutional complaints Eyes: Eyes: Reports no additional eye complaints ENT: Reports system reviewed and no additional complaints, except as documented Cardiovascular: Cardiovascular: Reports no additional cardiovascular complaints, Denies chest pain and Denies dyspnea Respiratory: Respiratory: Reports no additional respiratory complaints, Denies chest congestion, Denies cough and Denies dyspnea Gastrointestinal: Gastrointestinal: Reports no additional gastrointestinal complaints, Denies abdominal pain, Denies nausea and Denies vomiting Musculoskeletal: Musculoskeletal: Reports no additional musculoskeletal complaints Integumentary/Breasts: Skin/Breast: Reports as per HPI Neurologic: Reports system reviewed and no additional complaints, except as documented Psychiatric: Psychiatric: Reports no additional psychiatric complaints Allergic/Immunologic: Allergic/Immunologic: Reports no additional allergic/immunologic complaints [facility] Past Medical History Medical History Bilateral primary osteoarthritis of knee Hyperlipidemia Hypothyroidism Obesity SOTO on CPAP Osteoarthritis of both knees Surgical History Surgical History History of total left knee replacement (~09/25/21) Conformis History of total right knee replacement (~04/14/22) Family History Family History Mother Acute myocardial infarction Family history of arthritis Grandparent Family history of arthritis Father Family history of malignant neoplasm Social History Social History Smoking packs per day: 0.2 Smoking cigarettes per day: 4.0 Years smoked: 20 Smoking pack-years: 4.00 Smoking status: Former smoker Tobacco type: cigarettes Second hand tobacco smoke exposure: No Smoking end date: 09/12/96 Additional smoking assessment comments: SMOKED 1/2 PACK/
== END 2023-09-17 13:45 | disposition home or self-care (01) ==
PROVIDERS: Emergency Provider Nurse Practitioner
DX: Z48.01 Encounter for change or removal of surgical wound dressing (principal); E78.5 Hyperlipidemia, unspecified; E03.9 Hypothyroidism, unspecified; E66.9 Obesity, unspecified; Z68.34 Body mass index [BMI] 34.0-34.9, adult; G47.33 Obstructive sleep apnea (adult) (pediatric); M17.0 Bilateral primary osteoarthritis of knee; Z96.653 Presence of artificial knee joint, bilateral
CPT/HCPCS: 99211; G0463

== ENCOUNTER 2024-03-15 13:47 | Emergency (ER) | payer OTHER, SELFPAY ==
[2024-03-15 13:59] VITALS: BP 166/98; PULSE 87; RESP 20; TEMP 36.9; O2SAT 98
--- NOTE | 2024-03-15 14:03 | ED_ITS ---
HPI - URI/Sore Throat General Chief Complaint: Upper Respiratory Infection Stated Complaint: cough Time Seen by Provider: 03/15/24 14:33 Source: patient, RN notes reviewed and old records reviewed Mode of arrival: ambulatory Limitations: no limitations History of Present Illness HPI Narrative: 58-year-old female presents to the [facility] with complaints of a cough. Patient reports cough has been going on since early February. Had received a Z- Angelo back in early February for the same symptoms. States that it has been waxing and weaning. Last week it did get a little bit worse, has been taking Mucinex and Claritin. Discussed doing an x-ray, offered steroid. Patient denies any other symptoms other than a cough Treatments prior to arrival: cold medicine Related Data Home Medications ?Medication ?Instructions ?Recorded ?Confirmed ?Last Taken ?Type paroxetine HCl 10 mg tablet 10 mg PO HS 08/27/21 09/29/23 04/12/22 History cholecalciferol (vitamin D3) 50 50 mcg PO DAILY 04/07/22 09/29/23 04/10/22 History mcg (2,000 unit) capsule evolocumab 420 mg/3.5 mL mg subcut 09/17/23 09/29/23 Unknown History subcutaneous wearable injector (Repatha Pushtronex) Tumeric BYMOUTH 09/29/23 09/29/23 Unknown History Allergies Allergy/AdvReac Type Severity Reaction Status Date / Time kiwi Allergy Severe FACIAL Verified 03/15/24 13:59 SWELLING, SCRATCHY TONGUE [id number]-[id number] Reductase AdvReac Intermediate INCREASED Verified 03/15/24 13:59 Inhibitor LIVER ENZYMES aspirin AdvReac Mild STOMACH Verified 03/15/24 13:59 PAIN Bleach (Sodium Hypochlorite) AdvReac Mild SKIN Verified 03/15/24 13:59 IRRITATION Review of Systems Review of Systems: All systems reviewed & are unremarkable except as noted in HPI and below Constitutional: Constitutional: Reports no additional constitutional complaints ENT: Reports system reviewed and no additional complaints, except as documented Cardiovascular: Cardiovascular: Reports no additional cardiovascular complaints, Denies chest pain and Denies dyspnea Respiratory: Respiratory: Reports as per HPI, Denies chest congestion, Reports cough and Denies dyspnea Musculoskeletal: Musculoskeletal: Reports no additional musculoskeletal complaints Integumentary/Breasts: Skin/Breast: Reports system reviewed and no additional complaints, except as docu PMFSH Past Medical History Medical History Arthritis Allergies Hypothyroidism SOTO on CPAP Hyperlipidemia Obesity Bilateral primary osteoarthritis of knee Osteoarthritis of both knees Surgical History Surgical History History of total right knee replacement (~04/14/22) History of total left knee replacement (~09/25/21) Conformis Family History Family History Mother Acute myocardial infarction Family history of arthritis Cerebrovascular accident Grandparent Family history of arthritis Cancer Father Family history of malignant neoplasm Heart disease Social History Social History Smoking packs per day: 0.2 Smoking cigarettes per day: 4.0 Years smoked: 20 Smoking pack-years: 4.00 Smoking status: Former smoker Tobacco type: cigarettes Second hand tobacco smoke exposure: No Smoking end date: 09/12/96 Additional smoking assessment comments: SMOKED 1/2 PACK/WEEK X 20 YEARS Alcohol intake: current Drinks per week: 5 Alcohol use details: Vodka 4-5 a week Substance use: former Substance use type: former substance user and marijuana Other substance usage details: STATES COUPLE TIMES A MONTH TO HELP SLEEP gummies Last use: 09/18/21 Do You Feel Safe in your Home?: Yes Lack of Transportation: No Lack of Food: Never True Current Housing: I Have Housing Concerned About Future Housing: No Difficulty Paying Gas/Electric Bills: No Difficulty Paying for Meds: No Currently Unemployed: No Education: Associate Degree Difficulty w/ Childcare or Family Care: No Living arrangements: with family Additional living arrangements comments: [facility] Occupation/Education: occupation Additional occupation/education comments: None listed Gender identity (if verbalized by the patient): Female Spiritual care concerns: No Agree to blood products: Yes Comments At the time of my signature, I reviewed and agree with the nursing past medical, surgical, social, and family history. There is no relevant family history pertinent to the patient complaint. Exam Const: General: cooperative, healthy appearing, comfortable, no acute distress, well developed, alert and well nourished Nutritional Appearance: well nourished Orientation/consciousness: patient oriented x3 Limitations: no limitations HENMT: Head: normal to inspection Ears: hearing grossly normal bilaterally, external ears normal, TM's normal bilaterally, EAC's normal, mastoids normal and no periauricular adenopathy Mouth: Yes Normal oral and palatal mucosa present, Yes lip normal, Yes tongue normal and Yes moist mucous membranes Throat: posterior oropharynx normal, uvula midline, postnasal drainage and no uvular edema Eyes: General: appearance normal, both eyes and all related structures Alignment and Position: alignment normal Neck: Neck: normal visual inspection, full ROM, no lymphadenopathy and no meningeal signs Chest: Chest palpation & inspection: normal inspection of the chest Resp: Effort & Inspection: normal respiratory effort and able to speak in complete sentences Auscultation: clear to auscultation bilaterally, no crackles, no rales, no rhonchi and no wheezes Cardio: Rate: regular rate Skin: General skin exam: normal color and no rashes or lesions noted Neuro: General: patient oriented x3, gait normal, moves all extremities and no meningeal signs Cognition (Neuro): normal cognition Speech: normal speech Gait exam (Neuro): Normal gait present Extrem: General: normal to inspection, full ROM, capillary refill normal and normal gait Psych: Appearance: grossly normal and well kempt Mental Status: mental status grossly normal Speech and movement: Normal speech and movement present and Clear speech present Affect: normal affect Attitude: cooperative Course Course Level of Care: Express Care Visit Vital Signs Vital signs: Vital Signs Temperature 98.4 F 03/15/24 13:59 Pulse Rate 87 03/15/24 13:59 Respiratory Rate 20 03/15/24 13:59 Blood Pressure 166/98 H 03/15/24 13:59 Pulse Oximetry 98 03/15/24 13:59 Oxygen Delivery Room Air 03/15/24 13:59 Temperature 98.4 F 03/15/24 13:59 Pulse Rate 87 03/15/24 13:59 Respiratory Rate 20 03/15/24 13:59 Blood Pressure 166/98 H 03/15/24 13:59 Pulse Oximetry 98 03/15/24 13:59 Oxygen Delivery Room Air 03/15/24 13:59 Reviewed MDM - URI/Sore Throat MDM Narrative Medical decision making narrative: Patient cup sitting comfortably in exam room. Nontoxic, vitals stable. Patient presents with a cough for approximately 1 month. Has had her see Pac. Discussed doing an x-ray to look for pneumonia patient declined at this time. Discussed what bronchitis he is and if she had a virus that sometimes the post viral cough can last for several weeks. Discussed doing a steroid which she politely declined states that she gains too much weight. Discussed in great detail treatment plan which she verbalized understanding. Discharge instructions reviewed with patient, as well as provided in writing per nursing staff. The instructions also include specific and strict return/GO TO THE ER as well as f/u information. All questions have been answered, and the patient deny any further questions with discharge and discharge plan. Some parts of this dictation were generated by voice recognition software and may contain typographical and/or grammatical inaccuracies. Differential Diagnosis Differential diagnosis: Likely upper respiratory infection, otitis media, sinusitis, viral infection, bronchitis and influenza Critical Care Time Critical Care Time Critical Care Time: No Discharge Plan Discharge Clinical Impression: Bronchitis, PND (post-nasal drip) Patient Disposition: Home, Self-Care Condition: Stable Instructions: Antibiotic Form, Acute Bronchitis (ED), Postnasal Drip (DC) Additional Instructions: Your symptoms are likely due to a viral illness, which is not treated with antibiotics. Typically viral infections last 7-10 days, can linger for several of weeks. It is very important to treat your symptoms. Drink plenty of water, Gatorade, Pedialyte, ice pops or Jell-O. -Alternate Tylenol and Motrin per package directions for fever or pain. You can alternate every 4 hours -Antihistamine medication such as Zyrtec/Claritin/Rizwana during the day can help improve symptoms. -doing daily nasal irrigations can help relieve pressure your sinuses. Things like a Neti pot -Use Flonase twice a day for 5 days then daily to help reduce the inflammation and dry up your sinuses. -You can also use Mucinex. Be sure to drink plenty of water with this medication at least 8 ounces with every dose and it is important to drink 8 to 10 glasses of water per day. Water is a natural decongestant -Eat and drink things that are easy to swallow, like tea or soup, or popsicles. -Oral rinses such as: Salt water gargles and/or may use topical anesthetic (eg. Chloraseptic spray) or lozenges to relieve dryness or throat pain). -Frequent hand washing or hand merchandise associate is one of the best ways to prevent spread of infection. -Using a vaporizer or humidifier at night will also help thin secretions and he lp with coughing up phlegm. -Follow up with primary care provider in 7-10 days if condition is not improving - For new or worsening symptoms go directly to the nearest ER Patient Language: Belarusian Prescriptions: No Action Repatha Pushtronex 420 mg/3.5 mL wearable injector SUBCUT Tumeric BYMOUTH Rx Instructions: 500mg daily PM paroxetine HCl 10 mg Tablet 10 mg PO HS cholecalciferol (vitamin D3) 50 mcg (2,000 unit) Capsule 50 mcg PO DAILY aspirin 81 mg tablet,delayed release (DR/EC) 81 mg PO BID 14 Days Qty: 28 0RF All Day Allergy (cetirizine) 10 mg capsule 10 mg PO HS Qty: 90 3RF levothyroxine 75 mcg tablet See Rx Instructions .ROUTE .COMPLEX Qty: 90 0RF Dose Instruction: TAKE 1 TABLET BY MOUTH IN THE MORNING Rx Instructions: TAKE 1 TABLET BY MOUTH IN THE MORNING Follow-up/Referrals: Nicole Vazquez APRN [Primary Care Provider] - 2 Weeks ([facility] follow-up) Stand Alone Forms: Work/School Release IP Time of Disposition: 14:46
== END 2024-03-15 14:50 | disposition home or self-care (01) ==
PROVIDERS: Emergency Provider Nurse Practitioner; PCP Nurse Practitioner Adult Health
DX: J40 Bronchitis, not specified as acute or chronic (principal); R09.82 Postnasal drip; G47.33 Obstructive sleep apnea (adult) (pediatric); Z99.89 Dependence on other enabling machines and devices; E78.5 Hyperlipidemia, unspecified; E03.9 Hypothyroidism, unspecified; Z96.653 Presence of artificial knee joint, bilateral; Z87.891 Personal history of nicotine dependence
CPT/HCPCS: 99211; G0463

== ENCOUNTER 2024-04-04 14:41 | Outpatient (CLI) | payer OTHER, SELFPAY ==
--- NOTE | ~2024-04-04 | XR_ITS ---
HISTORY: Z96.652 - Presence of left artificial knee joint COMPARISON: 10/29/2022 TECHNIQUE: 3 views of the left knee were performed FINDINGS: A left total knee prosthetic is present. No periprosthetic fracture is appreciated. Small suprapatellar joint effusion is identified. The infrapatellar joint space is clear. IMPRESSION: No periprosthetic fracture. Small suprapatellar joint effusion Reviewed, dictated and finalized at location A. 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
--- OUTSIDE RECORDS SUMMARY | 2024-04-06 19:11 | XMS_ITS | Data Portability ---
Author Organization [facility] [employer], Main Office Address [address] [place] [address] Assessment No assessment recorded. Plan of Treatment Reminders Order Date Submit Date Provider Last Modified By Organization Details Last Modified Time Details Appointments None recorded . Lab HbA1c (hemoglo bin A1c), blood 023 06/04/[address] (Lab), [address] [place], [address], 3 16:14:11 TSH, serum, reflex free T4 023 06/04/[address] (Lab), [address] [place], [address], 3 16:13:47 Referral None recorded . Procedures None recorded . Surgeries None recorded . Imaging None recorded . Medication Orders None recorded . Patient TargetsNo targets recorded. Patient InstructionsNo instructions recorded. Reason for Referral None Reported. Results Created Date Observation Date Name Description Value Unit Range Abnormal Flag Note LastModifiedBy Organization Detail LastModifiedTime 10/04/19 21 10/03/2020 HEMOG LOBIN A1C HA1C 5.6 % 4.0-6. 0 Diabe ad Scree concepcion Crite rochelle: <5.7% Consi stent with absen ce of diabe ad 5.7-6 .4% Consi stent with incre ased risk for diabe ad (pred iabet es) >OR=6 .5% Consi stent with diabe ad REFER ENCE: Diabe ad Care 2016, 39(Crockett ppl.1 ):s13 -s22 Not Available [facility] (Lab) [address] [place], [address], 10/03/2020 21:47:09 10/04/1910/03/2020 VITAM IN B12 (JERRY MAL ) vb12 436 pg/mL 239-93 1 Not Available [facility] (Lab) [address] [place], [address], 10/03/2020 20:34:48 10/04/1910/03/2020 TSH thyroid-stim ulating hormone 2.130 uIU/m L 0.465- 4.680 Not Available [facility] (Lab) [address] [place], [address], 10/03/2020 20:15:46 10/04/1910/03/2020 VITAM IN D 25-HY DROXY vd25oh 81.6 NG/mL 30-100 Vitam in D Statu s: Defic ient: <20 ng/mL Insuf ficie nt: 20-29 ng/mL Suffi cient : 30-10 0 ng/mL Not Available [facility] (Lab) [address] [place], [address], 10/03/2020 19:57:42 10/04/1910/03/2020 LIPID PANEL cholesterol 277 mg/dL 140-19 9 high NIH AMARI NSUS RECOM MENDA TION FOR SORAYA STERO L: ADULT CHILD LOW RISK: <200 <170 BORDE RLINE : <200- 239 ----- HIGH RISK: >240 >200 Not Available [facility] (Lab) [address] [place], [address], 10/03/2020 19:47:17 10/04/1910/03/2020 LIPID PANEL triglyceride s 62 mg/dL 0-150 NIH AMARI NSUS REPOR T RECOM MENDA TION FOR TRIGL YCERI JESSICA: ADULT CHILD LOW RISK: <150 ----- BODER LINE: 150-1 99 ----- HIGH RISK: >200 ----- Not Available [facility] (Lab) [address] [place], [address], 10/03/2020 19:47:17 10/04/19 21 10/03/2020 LIPID PANEL HDL cholesterol 175 mg/dL 40- Not Available [facility] (Lab) [address] [place], [address], 10/03/2020 19:47:17 10/04/19 21 10/03/2020 LIPID PANEL LDL cholesterol, calculated 90 mg/dL 0-130 NIH AMARI NSUS REPOR T RECOM MENDA TIONS FOR LDL: ADULT CHILD LOW RISK <130 <110 (OPTI MAL LDL) <100 ----- BORDE RLINE : 130-1 59 ----- HIGH RISK: >160 >130 A TRIGL YCERI DE RESUL T >400 INVAL IDATE S THE CALCU LATIO N FOR LDL FRACT IONAT ION - THE LDL RESUL T WILL NOT BE REPOR WINTER. Not Available [facility] (Lab) [address] [place], [address], 10/03/2020 19:47:17 10/04/19 21 10/03/2020 HEPAT IC/LI BREANA PANEL alkaline phosphatase 69 U/L 38-126 Not Available [facility] (Lab) [address] [place], [address], 10/03/2020 19:42:16 10/04/1910/03/2020 HEPAT IC/LI BREANA PANEL alanine aminotransfe rase 46 U/L 0-35 high Not Available [facility] (Lab) [address] [place], [address], 10/03/2020 19:42:16 10/04/1910/03/2020 HEPAT IC/LI BREANA PANEL aspartate aminotransfe rase 56 U/L 15-37 high Not Available [facility] (Lab) [address] [place], [address], 10/03/2020 19:42:16 10/04/19 21 10/03/2020 HEPAT IC/LI BREANA PANEL bilirubin, total 0.60 mg/dL 0.20-1 .30 Not Available [facility] (Lab) [address] [place], [address], 10/03/2020 19:42:16 10/04/19 21 10/03/2020 HEPAT IC/LI BREANA PANEL bilirubin, conjugated (direct) 0.00 mg/dL 0.00-0 .30 Not Available [facility] (Lab) [address] [place], [address], 10/03/2020 19:42:16 10/04/1910/03/2020 HEPAT IC/LI BREANA PANEL biliurubin,u ncong. (indirect) 0.30 mg/dL 0.00-1 .1 Not Available [facility] (Lab) [address] [place], [address], 10/03/2020 19:42:16 10/04/19 21 10/03/2020 HEPAT IC/LI BREANA PANEL total protein 7.8 g/dL 6.3-8. 2 Not Available [facility] (Lab) [address] [place], [address], 10/03/2020 19:42:16 10/04/1910/03/2020 HEPAT IC/LI BREANA PANEL albumin 4.2 g/dL 3.4-5. 0 Not Available [facility] (Lab) [address] [place], [address], 10/03/2020 19:42:16 10/04/19 21 10/03/2020 HEPAT IC/LI BREANA PANEL globulin 3.6 g/dL 2.6-4. 2 Not Available [facility] (Lab) [address] [place], [address], 10/03/2020 19:42:16 10/04/19 21 10/03/2020 HEPAT IC/LI BREANA PANEL A/G ratio 1.2 ratio 1.0-2. 0 Not Available [facility] (Lab) [address] [place], [address], 10/03/2020 19:42:16 10/04/19 21 10/03/2020 BASIC METAB OLIC PANEL sodium 135 mmol/ L 137-14 5 low Not Available [facility] (Lab) [address] [place], [address], 10/03/2020 19:42:13 10/04/19 21 10/03/2020 BASIC METAB OLIC PANEL potassium 4.8 mmol/ L 3.5-5. 1 Not Available [facility] (Lab) [address] [place], [address], 10/03/2020 19:42:13 10/04/19 21 10/03/2020 BASIC METAB OLIC PANEL chloride 102 mmol/ L 98-107 Not Available [facility] (Lab) [address] [place], [address], 10/03/2020 19:42:13 10/04/19 21 10/03/2020 BASIC METAB OLIC PANEL carbon dioxide 28 mmol/ L 22-30 Not Available [facility] (Lab) [address] [place], [address], 10/03/2020 19:42:13 10/04/19 21 10/03/2020 BASIC METAB OLIC PANEL agap 9.8 mmol/ L 14-22 low Not Available [facility] (Lab) [address] [place], [address], 10/03/2020 19:42:13 10/04/19 21 10/03/2020 BASIC METAB OLIC PANEL glucose 86 mg/dL 70-99 Not Available [facility] (Lab) [address] [place], [address], 10/03/2020 19:42:13 07/10/03/2020 BASIC METAB OLIC PANEL BUN 16 mg/dL 8-19 Not Available [facility] (Lab) [address] [place], [address], 10/03/2020 19:42:13 10/04/1910/03/2020 BASIC METAB OLIC PANEL creatinine 0.61 mg/dL 0.66-1 .25 low Not Available [facility] (Lab) [address] [place], [address], 10/03/2020 19:42:13 10/04/1910/03/2020 BASIC METAB OLIC PANEL GFR >60 Refer ence Range : [place] ge GFR Healt hy Adult : >60 mL/mi n/1.7 3 m2 Chron ic Kidne y Disea se: 15-60 mL/mi n/1.7 3 m2 Kidne y Failu re: <15/m L/min /1.73 m2 www.n iddk. nih.g ov MDRD study equat ion hasn' t been valid ated in child prince <18 yrs of age, pregn ant women , the elder ly >85 yrs of age, or in some racia l or ethni c subgr oups, suc as Hispa nics. Outsi de the valid ated jose eters , estim ated GFR is less accur ate requi ring clini samanta judgm ent on a case by case basis . Clini samanta inter preta tion for other races and ages must be made by the clini cyrus . Futhe rmore , any of th e limit ation s with the use of serum creat inine relat ed to nutri elise l statu s o r medic ation usage hasn' t accou nted for the MDRD Study equat ion. For perso ns < 18 yrs of age, a pedia tric GFR calcu lator can be locat ed on the [facility] websi te: https :[email or web address] bhakta.o rg/pr ofess ional s/kdo qi/gf r_cal culat or Not Available [facility] (Lab) [address] [place], [address], 10/03/2020 19:42:13 10/04/19 21 10/03/2020 BASIC METAB OLIC PANEL calcium 9.0 mg/dL 8.4-10 .2 Not Available [facility] (Lab) [address] [place], [address], 10/03/2020 19:42:13 10/04/19 21 10/03/2020 CBC W/O DIFFE RENTI AL mean red cell hemoglobin 30.9 pg 27.0-3 3.0 Not Available [facility] (Lab) [address] [place], [address], 10/03/2020 19:34:18 10/04/1910/03/2020 CBC W/O DIFFE RENTI AL white blood cells 4.4 x10'3 /uL 4.2-10 .8 Not Available [facility] (Lab) [address] [place], [address], 10/03/2020 19:34:18 10/04/19 21 10/03/2020 CBC W/O DIFFE RENTI AL red blood cells 4.47 x10'6 /uL 3.80-5 .20 Not Available [facility] (Lab) [address] [place], [address], 10/03/2020 19:34:18 10/04/1910/03/2020 CBC W/O DIFFE RENTI AL hemoglobin 13.8 g/dL 12.0-1 5.6 Not Available [facility] (Lab) [address] [place], [address], 10/03/2020 19:34:18 10/04/1910/03/2020 CBC W/O DIFFE RENTI AL hematocrit 42.2 % 35.7-4 5.7 Not Available [facility] (Lab) [address] [place], [address], 10/03/2020 19:34:18 10/04/19 21 10/03/2020 CBC W/O DIFFE RENTI AL mean red cell volume 94.4 fL 82.0-9 9.0 Not Available [facility] (Lab) [address] [place], [address], 10/03/2020 19:34:18 10/04/19 21 10/03/2020 CBC W/O DIFFE RENTI AL mean RBC HGB concentratio n 32.7 g/dL 31.0-3 6.0 Not Available [facility] (Lab) [address] [place], [address], 10/03/2020 19:34:18 10/04/19 21 10/03/2020 CBC W/O DIFFE RENTI AL red cell distribution width 12.5 % 11.8-1 5.5 Not Available [facility] (Lab) [address] [place], [address], 10/03/2020 19:34:18 10/04/19 21 10/03/2020 CBC W/O DIFFE RENTI AL platelets 210 x10'3 /uL 150-40 0 Not Available [facility] (Lab) [address] [place], [address], 10/03/2020 19:34:18 10/04/19 21 10/03/2020 CBC W/O DIFFE RENTI AL mean platelet volume 11.5 fL 9.0-12 .4 Not Available [facility] (Lab) [address] [place], [address], 10/03/2020 19:34:18 10/29/19 21 10/29/2020 SARS- COV-2 ANTIB GET, IGG sars-cov-2 antibody, IgG positi ve negati ve normal Resul ts sugge st recen t or prior infec tion with SARS- CoV-2 . Corre latio n with epide miolo gic risk facto rs and other clini samanta and labor atory findi ngs is recom fabby d. Serol ogic resul ts shoul d not be used as the sole basis to diagn ose or exclu de recen t SARS- CoV-2 infec tion. False posit юлия resul ts infre quent ly occur due to prior infec tion with other human Coron aviru ses. This assay was perfo rmed using the [employer]ia[employer] on(R) SARS- CoV-2 S1/S2 IgG assay . This assay detec ts antib odies again st SARS- CoV-2 spike prote in inclu ding the bookkeeper receptionist tor giovanna ng domai n (RBD) . Not Available [facility] ([facility]) [address] [facility], [place], [address], 10/29/2020 14:11:38 10/29/1910/29/2020 SARS- COV-2 ANTIB GET, IGM sars-cov-2 antibody, IgM negati ve negati ve normal This sampl e does not conta in detec table SARS- CoV-2 IgM antib odies . This negat юлия resul t does not rule out SARS- CoV-2 infec tion. Corre latio n with epide miolo gic risk facto rs and other clini samanta and labor atory findi ngs is recom fabby d. Serol ogic resul ts shoul d not be used as the sole basis to diagn ose or exclu de recen t SARS- CoV-2 infec tion. This assay detec ts antib odies again st SARS- CoV-2 spike prote in inclu ding the bookkeeper receptionist tor giovanna ng domai n (RBD) . Not Available [facility] ([facility]) [address] [facility], [place], [address], 10/29/2020 14:11:36 01/09/2001/09/2021 MAGNE SIUM magnesium 1.8 mg/dL 1.6-2. 3 Not Available [facility] ([facility]) [address] [facility], [place], [address], 01/09/2021 10:37:19 10/27/20 21 01/09/2021 FE+TI BC+FE R iron bind.cap.(TI BC) 343 ug/dL 250-45 0 Not Available [facility] ([facility]) [address] [place], [address], 01/09/2021 10:37:19 01/09/20 21 01/09/2021 FE+TI BC+FE R UIBC 282 ug/dL 131-42 5 Not Available [facility] ([facility]) [address] [place], [address], 01/09/2021 10:37:19 01/09/20 21 01/09/2021 FE+TI BC+FE R iron 61 ug/dL 27-159 Not Available [facility] ([facility]) [address] [place], [address], 01/09/2021 10:37:19 01/09/20 21 01/09/2021 FE+TI BC+FE R iron saturation 18 % 15-55 Not Available [facility] [address] [place], [address], 01/09/2021 10:37:19 01/09/20 21 01/09/2021 FE+TI BC+FE R ferritin 553 NG/mL 15-150 above high normal Not Available [facility] ([facility]) [address] [place], [address], 01/09/2021 10:37:19 01/22/20 21 01/22/2021 C-ISIS CTIVE PROTE IN, QUANT C-reactive protein, quant 1 mg/L 0-10 Not Available [facility]) [address] [place], [address], 01/22/2021 11:39:36 01/22/20 21 01/22/2021 SEDIM ENTAT ION RATE- WESTE RGREN sedimentatio n rate-westerg prince 8 mm/HR 0-40 Not Available [facility]) [address] [facility] [place], [address], 01/22/2021 11:39:36 01/22/20 21 01/22/2021 XIN W/REF JAVED IF POSIT ЮЛИЯ XIN direct negati ve negati ve Not Available [facility] ([facility]) [address] [facility] [place], [address], 01/22/2021 11:39:35 05/15/19 22 05/15/2021 HEPAT IC FUNCT ION PANEL (7) protein, total 7.5 g/dL 6.0-8. 5 Not Available [facility] ([facility]) [address] [facility] [place], [address], 05/15/2021 05:09:30 05/15/19 22 05/15/2021 HEPAT IC FUNCT ION PANEL (7) albumin 4.0 g/dL 3.8-4. 9 Not Available [facility] ([facility]) [address] [facility] [place], [address], 05/15/2021 05:09:30 05/15/19 22 05/15/2021 HEPAT IC FUNCT ION PANEL (7) bilirubin, total 0.4 mg/dL 0.0-1. 2 Not Available [facility] ([facility]) [address] [facility] [place], [address], 05/15/2021 05:09:30 05/15/19 22 05/15/2021 HEPAT IC FUNCT ION PANEL (7) bilirubin, direct 0.14 mg/dL 0.00-0 .40 Not Available [facility] ([facility]) [address] [facility] [place], [address], 05/15/2021 05:09:30 05/15/19 22 05/15/2021 HEPAT IC FUNCT ION PANEL (7) alkaline phosphatase 85 IU/L 44-121 Not Available [facility] [address] [facility] [place], [address], 05/15/2021 05:09:30 05/15/19 22 05/15/2021 HEPAT IC FUNCT ION PANEL (7) AST (SGOT) 47 IU/L 0-40 above high normal Not Available [facility] ([facility]) [address] [facility] [place], [address], 05/15/2021 05:09:30 05/15/19 22 05/15/2021 HEPAT IC FUNCT ION PANEL (7) ALT (SGPT) 45 IU/L 0-32 above high normal Not Available [facility] ([facility]) [address] [facility] [place], [address], 05/15/2021 05:09:30 05/15/19 22 05/15/2021 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 Not Available [facility] ([facility]) [address] [place], [address], 05/15/2021 05:09:29 05/15/19 22 05/15/2021 LIPID PANEL VLDL cholesterol samanta 7 mg/dL 5-40 Not Available [facility]) [address] [facility], [place], [address], 05/15/2021 05:09:29 05/15/19 22 05/15/2021 LIPID PANEL LDL chol calc ([facility]) 183 mg/dL 0-99 above high normal Not Available [facility] ([facility]) [address], [place], [address], 05/15/2021 05:09:29 01/14/20 21 01/08/2021 XR, knee, 3 view No observ ation record ed. [id number] [address], [place], [address], 05/13/2022 03:16:23 03/12/20 21 03/12/2021 US, abdom en, compl ete No observ ation record ed. [id number] [address], [place], [address], 05/13/2022 03:16:23 04/16/19 22 04/15/2021 CT, abdom en + pelvi s, w/o contr ast No observ ation record ed. [id number] [facility] [address] [place], [address], 05/13/2022 03:16:23 04/16/19 22 04/15/2021 XR, chest , 2 view No observ ation record ed. [id number] [facility] [address] [place], [address], 05/13/2022 03:16:23 06/20/19 22 06/19/2021 XR, knee, 3 view No observ ation record ed. [id number] [address], [place], [address], 05/13/2022 03:16:23 09/26/19 22 09/25/2021 ortho pedic surge ry* No observ ation record ed. [id number] [address], [place], [address], 05/13/2022 03:16:23 01/08/20 22 01/05/2022 XR, knee, 3 view No observ ation record ed. [id number], [place], [address], 05/13/2022 03:16:23 04/14/19 23 04/14/2022 imagi ng/di agnos tic resul t No observ ation record ed. [id number], [place], [address], 05/13/2022 03:16:23 06/09/19 23 06/03/2022 XR, knee No observ ation record ed. [email or web address] [address], [place], [address], 06/08/2022 19:22:12 11/06/19 23 10/29/2022 XR, knee, 3 view No observ ation record ed. [email or web address] [address], [place], [address], 11/05/2022 12:54:28 Result Notes None recorded. Problems Name Problem SNOMED Code Status Onset Date Resolution Date Notes Provider Name and Address Organization Details Recorded Time Liver enzymes level above reference range 996251471 Active 2022 TERESA Adam [address], [place], [address] , [employer] 3 15:43:30 Menopausal flushing 796743386 Active 2022 TERESA Adam [address], [place], [address] , [employer] 3 15:56:10 Viral pharyngiti s 4232059 Completed Not Available [employer] 3 03:11:02 Skin tag 471301661 Completed Not Available [facility] 3 03:11:02 Actinic keratosis 997463589 Active Not Available [facility] 3 03:11:02 Osteoarthr itis of knee 201508622 Active Not Available [facility] 3 03:11:02 Family history of Myocardial infarction 779326107 Active 2019 Not Available [facility] 3 03:11:02 Pain in calf 598003132 Completed Not Available [facility] 3 03:11:02 Current tear of medial cartilage AND/OR meniscus of knee Active Not Available [facility] 3 03:11:02 Paresthesi a of foot 869386604 Completed Not Available [facility] 3 03:11:02 Knee pain Active Not Available [facility] 3 03:11:02 Hyperthyro idism 80877268 Completed Not Available [facility] 3 03:11:02 Melanocyti c nevus 458258020 Active Not Available [facility] 3 03:11:02 Hypothyroi dism 86345770 Active 2019 Not Available [facility] 3 03:11:02 Onychomyco sis 198626580 Completed Not Available [facility] 3 03:11:02 Eczema 48554879 Active Not Available [facility] 3 03:11:02 Coronary atheroscle rosis 827547111 Active 2019 Not Available [facility] 3 03:11:03 Calcificat ion of coronary artery 716355966 Active 2019 Not Available [facility] 3 03:11:03 Inflammati on of sacroiliac joint 62186040 Active Not Available [facility] 3 03:11:03 Hyperlipid emia 84161159 Active Not Available [facility] 3 03:11:03 Carpal tunnel syndrome 73164667 Active Not Available [facility] 3 03:11:03 Prickly heat 42425319 Completed Not Available [facility] 3 03:11:03 Obstructiv e sleep apnea syndrome 16689683 Active 2019 Not Available [facility] 3 03:11:03 Hyperglyce moose 82622556 Active 2019 Not Available [facility] 3 03:11:03 COVID-19 081394932 Active 2020 Not Available [facility] 3 03:11:03 Problem Notes None recorded. Procedures Surgical History Date Name Laterality Status Provider Name and Address Organization Details Recorded Time Knee arthroscopy/surg jacklyn completed Not Available [facility] 05/13/2022 03:07:20 Carpal tunnel surgery completed Not Available [facility] 05/13/2022 03:07:20 total replacement of right knee joint completed TERESA Adam [address], [address], [place], [address], [employer] 06/03/2022 15:41:06 total replacement of left knee joint completed TERESA Adam [address], [address], [place], [address], [employer] 06/03/2022 15:41:28 Imaging Results Imaging Date Name Status LastModified by Organiz ation Details LastModified Time 06/19/2021 XR, knee, 3 view completed [id number] [place] [address], [address], 05/13/2022 03:16:23 04/14/2022 imaging/diagnos tic result completed [id number] [place] [address], [address], 05/13/2022 03:16:23 01/08/2021 XR, knee, 3 view completed [id number] [place] [address], [address], 05/13/2022 03:16:23 03/12/2021 US, abdomen, complete completed [id number] [address] [facility], [place], [address], 05/13/2022 03:16:23 04/15/2021 CT, abdomen + pelvis, w/o contrast completed [id number] [facility] [address] [place], [address], 05/13/2022 03:16:23 04/15/2021 XR, chest, 2 view completed [id number] [facility] [address] [place], [address], 05/13/2022 03:16:23 01/05/2022 XR, knee, 3 view completed [id number] [place] [address], [address], 05/13/2022 03:16:23 09/25/2021 orthopedic surgery* completed [id number], [address], 05/13/2022 03:16:23 06/03/2022 XR, knee completed [address] [place] [address], [address], 06/08/2022 19:22:12 10/29/2022 XR, knee, 3 view completed [email or web address] [place] [address], [address], 11/05/2022 12:54:28 Procedure Notes None recorded. Medical Equipment None Reported. Allergies Allergen ID Allergen Name Allergen Category Reaction Reaction Severity Criticality Documentation Date Start Date Code Code System Note Provider Name and Address Organization Details Recorded Time 5621 aspirin medicatio n abdominal pain Not available Not available 05/13/2022 1191 RxNorm Not Available [facility] 3 03:16:02 5622 Easprin medicatio n Not available Not available Not available 05/13/202229449 4 RxNorm Not Available [facility] 3 03:16:02 Medications Name Sig Start Date Stop Date Status Note LastModified by Organization Details LastModified Time celecoxib 200 mg capsule TAKE 1 CAPSULE BY MOUTH ONCE DAILY 06/03 completed Not Available Not Available Not Available atorvastati n 40 mg tablet TAKE 1 TABLET BY MOUTH ONCE DAILY AT BEDTIME FOR 30 DAYS active Not Available Not Available No t Available metformin 500 mg tablet active Not Available Not Available Not Available paroxetine 10 mg tablet TAKE 1 TABLET BY MOUTH ONCE DAILY active Not Available Not Available No t Available atorvastati n 20 mg tablet TAKE 1 TABLET BY MOUTH ONCE DAILY AT BEDTIME active Not Available Not Available No t Available azithromyci n 250 mg tablet Take 2 TABLET EVERY DAY by oral route for 1 day. Than 1 tablet for 4 days 03/23 completed Not Available Not Available Not Available ibuprofen 800 mg tablet TAKE 1 TABLET BY MOUTH EVERY 6 TO 8 HOURS NEEDED 03/04 completed Not Available Not Available Not Available hydrocodone 5 mg-acetamin ophen 325 mg tablet 08/03 completed Not Available Not Available Not Available prednisone 5 mg tablet TAKE 1 TABLET BY MOUTH ONCE DAILY FOR 3 WEEKS. 06/03 completed Not Available Not Available Not Available clobetasol 0.05 % topical cream APPLY 1 CREAM TOPICALLY TO RASH TWICE DAILY UP TO 2 WEEKS PER MONTH NEEDED active Not Available Not Available No t Available phentermine 37.5 mg tablet TAKE 1 TABLET BY MOUTH ONCE DAILY FOR 30 DAYS 06/03 completed Not Available Not Available Not Available tramadol 50 mg tablet TAKE 1 TABLET BY MOUTH EVERY 6 HOURS NEEDED FOR PAIN 06/03 completed Not Available Not Available Not Available triamcinolo ne acetonide 0.1 % topical cream APPLY A THIN LAYER TO LEFT ELBOW TWICE DAILY 06/03 completed Not Available Not Available Not Available levothyroxi ne 75 mcg tablet Take 1 tablet every day by oral route. active Not Available Not Available No t Available oxycodone-a cetaminophe n 5 mg-325 mg tablet 06/03 completed Not Available Not Available Not Available amoxicillin 875 mg tablet 03/03 completed Not Available Not Available Not Available triamcinolo ne acetonide 0.025 % topical cream APPLY A THIN LAYER TO THE AFFECTED AREA(S) BY TOPICAL ROUTE 2 TIMES PER DAY active Not Available Not Available No t Available Lamisil 250 mg tablet Take 1 TABLET EVERY DAY by oral route for 12 weeks. active Not Available Not Available No t Available pantoprazol e 40 mg tablet,rachel yed release TAKE 1 TABLET BY MOUTH ONCE DAILY AT BEDTIME 06/03 completed Not Available Not Available Not Available clotrimazol e-betametha sone 1 %-0.05 % topical cream APPLY TO THE AFFECTED AND SURROUNDI NG AREAS OF SKIN BY TOPICAL ROUTE 2 TIMES PER DAY IN THE MORNING AND EVENING FOR TWO WEEKS 06/03 completed Not Available Not Available Not Available Euthyrox 50 mcg tablet Take 1 po daily 09/10 completed Not Available Not Available Not Available clobetasol 0.05 % topical ointment active Not Available Not Available Not Available dexamethaso ne sodium phosphate 4 mg/mL injection solution USE 1 ML PER IONTOPHOR ESIS SESSION 06/03 completed Not Available Not Available Not Available methylpredn isolone 4 mg tablets in a dose pack TAKE BY MOUTH DIRECTED ON INSIDE OF PACKAGE 10/23 completed Not Available Not Available Not Available Vitamin D2 1,250 mcg (50,000 unit) capsule 09/06 completed Not Available Not Available Not Available metformin ER 500 mg tablet,exte nded release 24 hr TAKE 1 TABLET BY MOUTH TWICE DAILY active Not Available Not Available No t Available doxycycline hyclate 100 mg tablet active Not Available Not Available No t Available ezetimibe 10 mg tablet TAKE 1 TABLET BY MOUTH ONCE DAILY AT BEDTIME FOR 90 DAYS active Not Available Not Available No t Available rosuvastati n 10 mg tablet Take 1 tablet every day by oral route. active Not Available Not Available No t Available erythromyci n with ethanol 2 % topical solution 08/03 completed Not Available Not Available Not Available Zyrtec 06/18 completed Not Available Not Available Not Available Allergy Relief (cetirizine ) 10 mg tablet active Not Available Not Available Not Available diclofenac 1 % topical gel APPLY 4 GRAMS TOPICALLY 4 TIMES DAILY TO SINGLE KNEE, ANKLE, AND FOOT. FOR FOOT INCLUDE SOLE, TOES, AND TOP OF FOOT. active Not Available Not Available No t Available Adacel (Tdap Adolesn/Amado lt)(PF)2 Lf-(2.5-5-3 -5)-5 Lf/0.5 mL IM syringe active Not Available Not Available N ot Available GaviLyte-G 236 gram-22.74 gram-6.74 gram-5.86 gram oral solution TAKE 240ML ORALLY EVERY 10 MINUTES DIERCTED 06/03 completed Not Available Not Available Not Available Saxenda 3 mg/0.5 mL (18 mg/3 mL) subcutaneou s pen injector INJECT 3 MG SUBCUTANE OUSLY DAILY 06/03 completed Not Available Not Available Not Available Shingrix (PF) 50 mcg/0.5 mL intramuscul ar suspension, kit 02/22 completed Not Available Not Available Not Available Fluzone Quad (PF) 60 mcg (15 mcg x 4)/0.5 mL IM syringe active Not Available Not Available N ot Available Nexlizet 180 mg-10 mg tablet TAKE 1 TABLET BY MOUTH ONCE DAILY active Not Available Not Available No t Available Wegovy 0.25 mg/0.5 mL subcutaneou s pen injector Inject 0.25 mg every week by subcutane ous route. 06/03 completed Not Available Not Available Not Available Vitals Date Recorded Body height Body mass index (BMI) Body weight Body temperature Heart rate Oxygen saturation Oxygen saturation in Arterial blood by Pulse oximetry Systolic blood pressure Diastolic blood pressure Provider Name and Address Organization Details Last Updated DateTime 3 167.64 cm 32.6 kg/m2 64109.6 6 g 97.5 [degF] 75 /min 98 % 98 % 116 mm[Hg] 80 mm[Hg] Nichole Ortega [place] [facility] [place] [employer] 3 15:24:04 Date Recorded Body mass index (BMI) Body height Oxygen saturation Oxygen saturation in Arterial blood by Pulse oximetry Heart rate Body temperature Body weight Systolic blood pressure Diastolic blood pressure Provider Name and Address Organization Details Last Updated DateTime 1 33.4 kg/m2 167.64 cm 97 % 97 % 85 /min 97.2 [degF] 49678.6 2 g 124 mm[Hg] 84 mm[Hg] Not Available [facility] 3 03:09:24 Date Recorded Body mass index (BMI) Body height Oxygen saturation Oxygen saturation in Arterial blood by Pulse oximetry Heart rate Body temperature Body weight Systolic blood pressure Diastolic blood pressure Provider Name and Address Organization Details Last Updated DateTime 1 31.6 kg/m2 167.64 cm 97 % 97 % 65 /min 97 [degF] 39692.1 g 142 mm[Hg] 92 mm[Hg] Not Available [facility] 3 03:09:24 Date Recorded Body mass index (BMI) Body height Oxygen saturation Oxygen saturation in Arterial blood by Pulse oximetry Heart rate Body temperature Body weight Systolic blood pressure Diastolic blood pressure Provider Name and Address Organization Details Last Updated DateTime 1 31.3 kg/m2 167.64 cm 98 % 98 % 84 /min 96.5 [degF] 74655.9 2 g 136 mm[Hg] 90 mm[Hg] Not Available [facility] 3 03:09:24 Date Recorded Body height Oxygen saturation Oxygen saturation in Arterial blood by Pulse oximetry Heart rate Body temperature Systolic blood pressure Diastolic blood pressure Provider Name and Address Organization Details Last Updated DateTime 2 167.64 cm 96 % 96 % 69 /min 97.5 [degF] 124 mm[Hg] 84 mm[Hg] Not Available [facility] 3 03:09:24 Social History Question Answer Notes LastModified by Organization Details LastModified Time Tobacco Smoking Status Former Smoker Not Available [facility] 05/13/2022 03:02:47 Do You Have An Advance Directive? No MIGRATION.0301 [id number] Information not available 05/13/2022 What Is Your Level Of Alcohol Consumption? Moderate MIGRATION.0301 [id number] Information not available 05/13/2022 How Many Years Have You Consumed Alcohol? 40 MIGRATION.0301 [id number] Information not available 05/13/2022 What Is Your Level Of Caffeine Consumption? Occasional MIGRATION.0301 550555 Information not available 05/13/2022 How Much Tobacco Do You Chew? None MIGRATION.0301 [id number] Information not available 05/13/2022 In The 14 Days Before Symptom Onset, Have You Had Close Contact With A Laboratory-confi rmed COVID-19 While That Case Was Ill? No MIGRATION.0301 [id number] Information not available 05/13/2022 In The 14 Days Before Symptom Onset, Have You Had Close Contact With A Person Who Is Under Investigation For COVID-19 While That Person Was Ill? No MIGRATION.0301 [id number] Information not available 05/13/2022 What Type Of Diet Are You Following? REGULAR MIGRATION.0301 [id number] Information not available 05/13/2022 Which Illicit Or Recreational Drugs Have You Used? None MIGRATION.0301 519402 Information not available 05/13/2022 Do You Or Have You Ever Used E-cigarettes Or Vape? Never Used Electronic Cigarettes MIGRATION.0301 890215 Information not available 05/13/2022 Do You Have An Electrostatic Air Filter? 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 No MIGRATION.0301 [id number] Information not available 05/13/2022 Where Do You Live? SingleLevelHouse W/baseme nt MIGRATION.0301 260203 Information not available 05/13/2022 Do You Have Moisture Problems In Your Home? No MIGRATION.0301 507234 Information not available 05/13/2022 What Was The Date Of Your Most Recent Tobacco Screening? 12/17/2020 MIGRATION.0301 160969 Information not available 05/13/2022 How Many Children Do You Have? 1 MIGRATION.0301 [id number] Information not available 05/13/2022 Have You Ever Been Counseled For Unhealthy Alcohol Use? No [email or web address] Information not available 06/03/2022 Do You Have Any Pets? Yes MIGRATION.0301 187227 Information not available 05/13/2022 Do You Use Your Seat Belt Or Car Seat Routinely? Yes MIGRATION.0301 [id number] Information not available 05/13/2022 Do You Have Smoke And Carbon Monoxide Detectors In Your Home? No MIGRATION.0301 366106 Information not available 05/13/2022 At What Age Did You Start Smoking Tobacco? 11 MIGRATION.0301 166557 Information not available 05/13/2022 Are You Passively Exposed To Smoke? No MIGRATION.0301 550998 Information not available 05/13/2022 Do You Or Have You Ever Used Smokeless Tobacco? Never Used Smokeless Tobacco MIGRATION.0301 056072 Information not available 05/13/2022 How Much Tobacco Do You Smoke? 1 PPW MIGRATION.0301 684131 Information not available 05/13/2022 Do You Use Any Illicit Or Recreational Drugs? No MIGRATION.0301 517363 Information not available 05/13/2022 Do You Use Sunscreen Routinely? Yes MIGRATION.0301 [id number] Information not available 05/13/2022 Has Tobacco Cessation Counseling Been Provided? No [email or web address] Information not available 06/03/2022 How Many Years Have You Smoked Tobacco? 17 MIGRATION.030 357422 Information not available 05/13/2022 Have You Recently Traveled Abroad? No MIGRATION.030 026698 Information not available 05/13/2022 Do You Have Any Dietary Restrictions? No [email or web address] Information not available 06/03/2022 Do You Or Have You Ever Used Any Other Forms Of Tobacco Or Nicotine? No [email or web address] Information not available 06/03/2022 Sex: Female Functional Status Question Answer Note LastModified by Organizat ion Details LastModified Time What is your exercise level? Moderate [id number] Information not available 05/13/2022 Mental Status None recorded. Family History Relationship Description Onset Age of this Age Resolved Age Notes LastModified by Organization Details LastModified Time Mother Cerebrovascu lar accident MIGRATION.522 [id number] Not available 05/13/2022 03:07:24 Mother Lupus erythematosu s MIGRATION.000 [id number] Not available 05/13/2022 03:07:24 Father Malignant tumor of lung MIGRATION.692 [id number] Not available 05/13/2022 03:07:24 Brother Malignant tumor of colon MIGRATION.799 [id number] Not available 05/13/2022 03:07:24 Medical History Condition Response CHEST XRAY Y NERVE DISEASE N BLINDNESS N OTHER # 1 N POLIO N LUNG DISEASE/DISORDER N RADIATION / CHEMOTHERAPY N COPD N Other # 2 N BLOOD DISEASES N SURGERY N EAR OR HEARING PROBLEMS N FEMALE PROBLEMS / INFECTIONS N DEPRESSION (INCLUDING POST ) N BOWEL PROBLEMS N STROKE/TIA N CHEST CT Y ULCERS N RENAL INSUFFICIENCY N BENIGN PROSTATIC HYPERPLASIA N TB SKIN TEST N OBESITY N GERD/NAUSEA N EXCESSIVE PERSPIRATION Y ANEURYSM N URINARY/BLADDER/KIDNEY PROBLEMS N CORONARY ARTERY DISEASE (CAD) N USE OF BLOOD THINNERS N SKIN PROBLEMS N EMPHYSEMA N SHORTNESS OF BREATH N GASTROINTESTINAL DISORDER N PARATHYROID DISEASE N PERIPHERAL VASCULAR DISEASE N GASTROINTESTINAL BLEEDING N BLOOD CLOTS N ASTHMA N CONCUSSION OR SPINAL TRAUMA N VARICOSITIES N GI PROBLEMS N CHF N AIDS/HIV N HYPERTENSION N ANXIETY DISORDER N BLOOD TRANSFUSION N ANEMIA/BLOOD DISORDER N BRONCHITIS N TUBERCULOSIS N GLAUCOMA N SLEEP APNEA Y ALLERGIES/HAYFEVER Y INFECTIOUS DISEASE N HEART ARRHYTHMIA N PROSTATE N INSOMNIA N HIGH CHOLESTEROL / HYPERLIPIDEMIA Y HYPERTHYROIDISM N NEUROLOGICAL PROBLEMS N EDEMA N HYPOTHYROIDISM Y CAROTID BLOCKAGE N BACK / NECK PROBLEMS N HAVE YOU BEEN HOSPITALIZED OR SEEN IN [facility] IN THE PAST YEAR ? N ATHEROSCLEROSIS N BREAST PROBLEMS N HERNIATED DISC N DIALYSIS N FIBROMYALGIA N OSTEOPOROSIS N ARTHRITIS Y NO SIGNIFICANT PAST MEDICAL HISTORY N DIABETES, TYPE N SEASONAL ALLERGIES Y HEARTBURN / REFLUX N PLEURISY N ADD/ADHD N Bronchoscopy N HEPATITIS / LIVER DISEASE N PULMONARY DISEASE N GOUT N SLEEP DISORDER Y ALZHEIMER'S DISEASE N FATIGUE N DEMENTIA N HERPES N RETINOPATHY N SEIZURES/EPILEPSY N HEADACHES/MIGRAINES Y SLEEP STUDY Y VASCULAR DISEASE N DIZZINESS N HEAD TRAUMA OR INJURY N HEART DISEASE/HEART PROBLEMS N MULTIPLE SCLEROSIS N PULMONARY FUNCTION TEST N CANCER: SPECIFY N CARDIAC ARRHYTHMIA N ANESTHESIA COMPLICATIONS N PNEUMONIA N ATRIAL FIBRILLATION N PULMONARY EMBOLISM N AUTOIMMUNE DISEASE N Gynecological HistoryNo gynecological history recorded. Obstetrics History GPAL:G 0 P 0 0 0 0 Immunizations Vaccine Type Date Status Note Provider Nam e and Address Organization Details Recorded Time Influenza, split virus, quadrivalent, preservative 0 completed Not Available [facility] 05/13/2022 03:15:54 Influenza, split virus, quadrivalent, PF 0 completed Not Available [facility] 05/13/2022 03:15:54 Past Encounters Encounter ID Performer Location Encounter Start Date Encounter Closed Date Diagnosis/Indication Diagnosis SNOMED-CT Code Diagnosis ICD10 Code Diagnosis Note [id number] S_[facility]G Pulmonolo [facility] [address] [address] 06/18/2020 00:00:00 06/18/2020 11:13:52 [id number] S_GMG [facility] Jesu mcconnell [address] [place] [id number] 10/03/2020 00:00:00 10/03/2020 13:53:24 [id number] S_GMG [facility] Jesu llvesta [address] [place] [id number] 10/23/2020 00:00:00 10/23/2020 12:07:44 [id number] S_GMG Pulmonolo gy [place] [address] [place] [address] 12/17/2020 00:00:00 12/17/2020 13:43:42 [id number] S_G [facility] Jesu mcconnell [address] [place] [address] 03/03/2021 00:00:00 03/04/2021 09:03:50 [id number] [facility] Pulmonolo gy Kimo Pool [address] [place] [address] 01/30/2022 00:00:00 01/30/2022 13:15:38 [id number] TERESA Adam [employer] [facility] Primary Care Carly mcconnell [address] [facility] [address] [place] [id number] 06/03/2022 15:10:38 06/03/2022 16:08:22 Hyperlipidemia 44071318 E78.5 Followed by cardiology (Dr. Mireles). Liver enzy mes level above reference range 695769147 R74.01 Pt. was put on a statin, once she stopped it normalized . States has not had trouble since but has regular f/u with hepatologi st. Obstructiv e sleep apnea syndrome 42788843 G47.33 Followed by pulmonolog y (Magaly Menard). Coronary atherosclerosis 220412852 I25.10 Followed by cardiology (Dr. Mireles). Hypothyroidism 33022899 E03.9 Continue levothyrox ine 75mcg daily. Recheck labs today. Hyperglycemia 37414384 R 73.9 (01/30/22) A1C 5.7She states she was started on metformin but thinks it was more to help her lose weight. 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 Continue paroxetine 10mg daily. Health Concerns Section Related Observation LastModified by Organization Detai ls LastModified Time None Recorded Concern Status LastModified by Organization Details LastModified Time None Recorded Advance Directives Directive N: Payers Encounter Date Sequence Insurance Name Policy Number Policy Wright Covered Member ID Wright Member ID Guarantor Name 06/03/2022 3 [facility] [id number] Adam Maria [id number] 2 Gilma Barahona Notes Date Note Type Note Provider Name and Address Organization Details Recorded Time 06/03/2022 text/html Pt. here to establish care, transferring from [facility]. Other providers involved in care: Magaly Menard (pulmonology), Dr. Mireles (cardiology), Dr. Wilson (gynecology)No new concerns or complaints. TERESA Adam [address] [facility], [facility] [address], [place], [address], [facility] [place] [employer] [facility] 06/03/2022 16:38:07 OBGyn Episode No OBEpisode recorded.
== END 2024-04-04 14:42 | disposition home or self-care (01) ==
LOC: ANHIMG 14:43
PROVIDERS: PCP Nurse Practitioner Adult Health; Visit Provider Orthopaedic Surgery
DX: M25.462 Effusion, left knee (principal); Z96.652 Presence of left artificial knee joint
CPT/HCPCS: 73562

== ENCOUNTER 2024-05-15 13:00 | Outpatient (CLI) | payer OTHER, SELFPAY ==
[2024-05-15 13:37] LABS: Basophils Absolute Auto 0.1 K/mm3 (0.0-0.1); Eosinophils Absolute Auto 0.3 K/mm3 (0-0.3); Eosinophils Percent Auto 5.4 % (0-4.4); Hematocrit 42.1 % (37.0-47.0); Hemoglobin 14.3 g/dL (12.0-15.0); Immature Granulocyte Absolute 0.09 K/mm3 (0.00-0.031); Immature Granulocyte Percent A 1.5 % (0-0.5); Lymphocytes Absolute Auto 1.42 K/mm3 (0.9-3.2); Lymphocytes Percent Auto 23.8 % (18.3-44.2); Mean Corpuscular Hemoglobin 30.3 pg (26-34); Mean Corpuscular Volume 89.2 fl (80-100); Mean Platelet Volume 9.4 fl (7.4-10.4); Monocytes Absolute Auto 0.7 K/mm3 (0.1-0.6); Monocytes Percent Auto 12.2 % (2.6-8.5); Neutrophils Absolute Auto 3.4 K/mm3 (1.3-6.7); Neutrophils Percent Auto 56.1 % (45.5-73.1); Platelet Count Result 309 k/mm3 (150-375); Red Blood Count 4.72 M/mm3 (4.2-5.4)
[2024-05-15 14:10] LABS: Alanine Aminotransferase 46 U/L (6-35); Albumin Level 3.8 g/dL (3.5-5.1); Alkaline Phosphatase 94 U/L (38-126); Anion Gap 9 mmol/L (4-12); Aspartate Amino Transferase 45 U/L (14-36); Bilirubin,Total 0.6 mg/dL (0.2-1.3); Blood Urea Nitrogen 8 mg/dL (7-17); Calcium 9.7 mg/dL (8.4-10.2); Carbon Dioxide 25 mmol/L (22-30); Chloride 101 mmol/L (98-107); Cholesterol 300 mg/dL (0-200); Estimated Glomerular Filt Rate > 60; Glucose 97 mg/dL (65-110); HDL Direct 101 mg/dL; Potassium 4.3 mmol/L (3.4-5.0); Sodium 135 mmol/L (137-145); Triglycerides 64 mg/dL (<150)
[2024-05-15 14:21] LABS: LDL Cholesterol Direct 107 mg/dL
== END 2024-05-15 13:01 | disposition home or self-care (01) ==
LOC: ANHLAB 13:02
PROVIDERS: PCP Nurse Practitioner Adult Health; Visit Provider Internal Medicine Cardiovascular Disease
DX: E78.5 Hyperlipidemia, unspecified (principal); I25.10 Atherosclerotic heart disease of native coronary artery without angina pectoris; G47.33 Obstructive sleep apnea (adult) (pediatric); E66.9 Obesity, unspecified; R06.02 Shortness of breath; Z13.6 Encounter for screening for cardiovascular disorders; Z82.3 Family history of stroke; Z82.49 Family history of ischemic heart disease and other diseases of the circulatory system
CPT/HCPCS: 36415; 80053; 80061; 83036; 85025

== ENCOUNTER 2024-05-18 11:40 | Outpatient (CLI) | payer OTHER, SELFPAY ==
--- OUTSIDE RECORDS SUMMARY | 2024-05-18 13:14 | XMS_ITS | Patient Health Summary ---
Author Organization [facility] wikifolio Address [address] [place] [address] Care Team Providers Care Seed Packer Name Role Phone Rex Fernando MD Primary Care Provider [phone] Note from [facility],non-owned Affiliates and Associated Physician Practices is amultiple site organization consisting of ambulatory clinics and hospital sitesin [place], [place], [place] and [place]. This disclosure is being madepursuant to the Care Everywhere program and may not contain all information available regarding this patient. Last updated 17.[facility] [employer] Allergies * Aspirin(Nausea) -Low Criticality * Naproxen(Nausea) -Low Criticality Social History Tobacco Use Types Packs/Day Years Used Date Smoking Tobacco: Former Alcohol Use Standard Drinks/Week Comments Yes 0 (1 standard drink = 0.6 oz pur e alcohol) Sex and Gender Information Value Date Recorded Sex Assigned at Not on file Gender Identity Not on file Sexual Orientation Not on file Procedures * DERMATOPATHOLOGY(Performed 05/07/2022) Performed for Basal cell carcinoma of skin of other part of trunk * DERMATOPATHOLOGY(Performed 03/10/2022) Performed for Neoplasm of uncertain behavior of skin Results * DERMATOPATHOLOGY (05/07/2022 12:00 AM [employer]) Only the most recent of2 resultswithin the time period is included. Case Report Dermatopathology Report Case: [id number] Authorizing Provider: Kimmie Yin MD Collected: 05/07/2022 12:00 AM Ordering Location: [facility] Received: 05/08/2022 12:28 PM Pathologist: Shameka Neves MD Specimen: Skin, mid chest 1:03 PM [facility] Final Diagnosis Specimen A. SKIN, mid chest: DERMAL SCAR RESIDUAL BASAL CELL CARCINOMA NOT IDENTIFIED (L90.5) 1:03 PM [facility] Clinical History Basal Cell Carcinoma. Check Margins. 1:03 PM [facility] Gross Description Specimen A: Received is one formalin filled container labeled with the patient's name and designated mid chest. The specimen consists of a 17x9x4 mm piece of skin. The margin is inked green. The specimen is bisected lengthwise and submitted in 1 cassette. Jar 0. 1:03 PM [facility] Microscopic Description Specimen A. SKIN, mid chest: There are fibroblasts and collagen bundles oriented parallel to the skin surface. There are elongated blood vessels, some of which are oriented perpendicular to the skin surface. No basal cell carcinoma is identified. 1:03 PM [facility] Disclaimer An external and internal positive and negative controls are appropriate for the histochemical, immunohistochemical and immunofluorescence stain(s) in this case (if any), except where stated explicitly. The performance characteristics of the stain(s) cited in this report were developed and its performance characteristic determined by the Dermatopathology Laboratory at [facility], directed by Dr. Lazara Hdez. These tests need not be, and therefore are not, approved by the [place] Food and Drug Administration. The tests are used for clinical purposes. Billing Codes Specimen Charges Stain Charges 24131 1 1:03 PM [facility]ER[facility] Embedded Images 1:03 PM [facility] Pathology/Cytolog y TISSUE SPECIMEN FROM SKIN / Unknown 05/07/2022 05/08/2022 12:28 PM [facility] Kimmie Yin MD LAB - PATHOLOGY/CYTO LOGY ORDERABLES DERMATOPATHOLOGY LABORATORY [facility] - Department of Dermatology [address] [phone] Care Teams Seed Packer Relationship Specialty Start Date End Date Rex Fernando MD [address] [place] [address] [address] [place] [address] PCP - General 01/21/10
--- OUTSIDE RECORDS SUMMARY | 2024-05-18 13:14 | XMS_ITS | CONTINUITY OF CARE DOCUMENT ---
Author Name caitlin fernandonancy Address Unknown Organization [facility] Address [address] [address] [place] [address] Phone [phone] Care Team Providers Care Applied Biology Professor Name Role Phone Chi CHUNG, Omar Unavailable [phone] JADON ABBOTT Unavailable [phone] JADON ABBOTT Unavailable PROBLEMS Condition Status Date Provider Notes Family History of CVA or Stroke: active Omar Mireles MD Coronary atherosclerosis, calcium score 102 in LAD 11/01 active Omar Mireles MD Hyperlipidemia active Omar Mireles MD Family history of heart disease active Omar Mireles MD Shortness of breath active Omar Mireles MD Obesity active Omar Mireles MD Cardiovascular screening completed - Omar Mireles MD Elevated blood pressure without diagnosis of hypertension completed - Omar Mireles MD SOTO on CPAP active Omar Mireles MD Cardiology examination active 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 Date Type Provider Location Encounter Diag nosis - In-person encounter Office Visit Omar Mireles MD [facility] Cardiology examination - In-person encounter Office Visit Omar Mireles MD [facility] - In-person encounter Office Visit Omar Mireles MD [facility] Cardiovascular screeningElevated blood pressure without diagnosis of hypertension - In-person encounter Office Visit Omar Mireles MD [facility] - In-person encounter Office Visit Omar Mireles MD [facility] Family History of CVA or Stroke:Coronary atherosclerosis, calcium score 102 in LAD 11/01HyperlipidemiaFamily history of heart diseaseShortness of breathObesityOSA on CPAP VITAL SIGNS Date Observation Value Provider Body Mass Index (Ratio) 34.21 kg/m2 Josr Mireles MD blood pressure, cuff size regular Ti daryl Dunham blood pressure, diastolic 82 mm[Hg] Ti daryl Dunham blood pressure, systolic 124 mm[Hg] Diamond Dunham oxygen saturation, oximetry 98 % Scarlet Dunham pulse rate 100 /min Scarlet Marcos s weight E&M 212 [lb_av] Scarlet Anner s height E&M 66 [in_i] Scarlet Anner s Body Mass Index (Ratio) 35.54 kg/m2 Josr Mireles MD blood pressure, cuff size regular St collin Bella blood pressure, diastolic 90 mm[Hg] St acy Shayne blood pressure, systolic 128 mm[Hg] López Bella respiratory rate E&M 18 /min Lisa D janey oxygen saturation, oximetry 97 % Lisakianna Bella pulse rate 75 /min Lisa Shayne weight E&M 220.2 [lb_av] Lisa Bella height E&M 66 [in_i] Lisa Shayne Body Mass Index (Ratio) 32.12 kg/m2 Josr Mireles MD blood pressure, diastolic 90 mm[Hg] Adelina nkLogshukri blood pressure, systolic 150 mm[Hg] Su kLogshukri blood pressure, diastolic 90 mm[Hg] Rh onda Elvira blood pressure, systolic 150 mm[Hg] Rho nda Elvira oxygen saturation, oximetry 96 % Bobbi Elvira pulse rate 90 /min Bobbi Elvira respiratory rate E&M 16 /min Bobib Elvira weight E&M 199 [lb_av] Bobbi Elvira blood pressure, resting Yes Rhon bill Elvira blood pressure, cuff size regular Rh onda Elvira height E&M 66 [in_i] Bobbi Elvira Body Mass Index (Ratio) 33.41 kg/m2 Isauro Hammer blood pressure, diastolic 82 mm[Hg] Rh onda Elvira blood pressure, systolic 140 mm[Hg] Rho nda Elvira oxygen saturation, oximetry 98 % Bobbi Elvira pulse rate 72 /min Bobbi Elvira weight E&M 207 [lb_av] Bobbi Elvira blood pressure, cuff size regular Rh onbill Elvira respiratory rate E&M 16 /min Bobbi Elvira height E&M 66 [in_i] Bobbi Elvira Body Mass Index (Ratio) 33.41 kg/m2 Josr Mireles MD blood pressure, resting No Cynt luis Nielson blood pressure, diastolic 93 mm[Hg] Cy ntluis Nielson blood pressure, systolic 153 mm[Hg] Tania thiroel Nielson blood pressure, cuff size regular Cy ntluis Nielson pulse rate 77 /min Fiorella Gonzalesbel l respiratory rate E&M 16 /min Fiorella Nielson oxygen saturation, oximetry 96 % Fiorella Nielson weight E&M 207 [lb_av] Fiorella Gonzalesbel l height E&M 66 [in_i] Fiorella Campbel l ALLERGIES Allergy Name Onset Date Reaction Criticality Status ASPIRIN ADULT Low Criticality active RESULTS Date Observation Value Provider Reference Range Interpretation Location hemoglobin A1C, blood, as % of total hemoglobin 5.8 % [facility] 4.8-5.6 High 6 bilirubin, serum, direct 0.13 mg/dL [facility] 0.00-0.40 lipoprotein, beta, serum, point, quantitative, calculated 176 mg/dL [facility] 0-99 High 6 HDL cholesterol, serum 130 mg/dL [facility] >39 triglyceride, serum, random 83 mg/dL [facility] 0-149 cholesterol, serum 318 mg/dL [facility] 100-199 High basophil count, absolute 0.0 x10E3/uL [facility] 0.0-0.2 Eosinophil Absolute Count 0.3 X10E3/UL [facility] 0.0-0.4 monocyte count, blood, automated 0.8 X10E3/UL [facility] 0.1-0.9 lymphocyte count, blood, automated 1.7 X10E3/UL [facility] 0.7-3.1 Absolute Neutrophils 2.2 X10E3/UL [facility] 1.4-7.0 basophils as percent of blood leukocytes 1 % [facility] Not Estab. 6 eosinophils as percent of blood leukocytes 6 % [facility] Not Estab. 6 monocytes as percent of blood leukocytes 15 % [facility] Not Estab. 6 lymphocytes as percent of blood leukocytes 35 % [facility] Not Estab. 6 neutrophils as percent of blood leukocytes 43 % [facility] Not Estab. 6 platelet count 235 X10E3/UL [facility] 276-608 5174/10/0 6 red blood cell distribution width 12.5 % [facility] 11.7-15.4 mean corpuscular hemoglobin concentration, RBC 34.6 G/DL [facility] 31.5-35.7 mean corpuscular hemoglobin, RBC 30.6 pg [facility] 26.6-33.0 mean corpuscular volume, RBC 88 fL [facility] 79-97 hematocrit, blood 41.9 % [facility] 34.0-46.6 hemoglobin, blood 14.5 g/dL [facility] 11.1-15.9 erythrocyte (RBC) count 4.74 X10E6/UL [facility] 3.77-5.28 leukocyte count, blood 5.0 X10E3/UL [facility] 3.4-10.8 alanine aminotransferase (SGPT), serum 49 1/L [facility] 0-32 High aspartate aminotransferase (SGOT), serum 58 1/L [facility] 0-40 High alkaline phosphatase, serum 94 1/L [facility] 44-121 bilirubin, serum, total 0.3 mg/dL [facility] 0.0-1.2 albumin/globulin ratio, serum 1.1 [facility] 1.2-2.2 Low globulin, serum 3.6 [facility] 1.5-4.5 albumin, serum 4.0 g/dL [facility] 3.8-4.9 protein, total, serum 7.6 g/dL [facility] 6.0-8.5 calcium, serum 9.9 mg/dL [facility] 8.7-10.2 carbon dioxide, venous blood 24 mmol/L [facility] 20-29 6 chloride, serum 98 mmol/L [facility] 96-106 potassium, serum 4.3 mmol/L [facility] 3.5-5.2 sodium, serum 137 mmol/L [facility] 234-631 3602/10/0 6 urea nitrogen/creatinine ratio, serum 18 [facility] 9-23 6 creatinine, serum 0.76 mg/dL [facility] 0.57-1.00 6 urea nitrogen, blood 14 mg/dL [facility] 6-24 6 blood glucose, random 82 mg/dL [facility] 70-99 HISTORY OF MEDICATION USE Medication Status Instructions Dates Provider Indications Com shanajesse Repatha SureClick 140 mg/mL pen injector active Inject 1 pen injector subcutaneously every two weeks 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 APPOINTMENT REQUIRED FOR FUTURE REFILLS Sheba Carlton metformin (Glucophage XR) 500 mg tablet extended release 24 hr completed Take 1 tablet by mouth twice a day LAST FILL TILL SEEN IN OFFICE - Oksana Fry Repatha SureClick 140 mg/mL pen injector completed Inject 1 mL (140 mg) by subcutaneous injection every 2 weeks. - Sada HARRISONP Repatha Pushtronex 420 mg/3.5 mL wearable injector completed APPLY PATCH TO ABDOMINAL SKIN TO INJECT 420MG UNDER THE SKIN ONCE A MONTH DIRECTED - Sada Reis RN metformin (Glucophage XR) 500 mg tablet extended release 24 hr completed Take 1 tablet by mouth twice daily - Sheba Carlton Repatha SureClick 140 mg/mL pen injector completed Inject 140 mg subcutaneously every two weeks - Mayo Easterday Repatha Pushtronex 420 mg/3.5 mL wearable injector completed Inject 1 ml subcutaneously as directed APPLY PATCH TO ABDOMINAL SKIN TO INJECT 420MG UNDER THE SKIN ONCE A MONTH DIRECTED - Elpidio Zimmerman metformin (Glucophage XR) 500 mg tablet extended release 24 hr completed Take 1 tablet by mouth twice a day TAKE 1 TABLET BY MOUTH TWICE DAILY - Mayo Easterday metformin 500 mg tablet extended release 24hr completed Take 1 tablet by mouth once a day - Feliciano No metformin 500 mg tablet completed Take 1 tablet by mouth twice a day - Elpidio Haynesjunaid Nexlizet 180-10 mg tablet completed Take 1 tablet by mouth once a day - Sadaomi Del Riomigltenzin [facility] ezetimibe 10 mg tablet completed - Elpidio Ruckeromaira cetirizine 10 mg tablet active TAKE 1 TABLET BY MOUTH ONCE DAILY Elpidio Haynesjunaid Saxenda 3 mg/0.5 mL (18 mg/3 mL) pen injector completed INJECT 0.6 MG SUBCUTANEOUSLY DAILY FOR 1 WEEK THEN INCREASE BY 0.6 WEEKLY UNTIL AT 3MG DAILY - Elpidio Ruckeromaira atorvastatin 80 mg tablet completed Take 1 tablet by mouth TAKE 1 TABLET BY MOUTH ONCE DAILY AT BEDTIME FOR 30 DAYS - Ashley Cruz aspirin 81 mg tablet,delayed release (DR/EC) active 1 tablet once a day Genaro Beck QC TUMERIC COMPLEX 500 MG CAPS active once a day Fiorella Nielson ZINC CAPSULE active once a day Fiorella Nielson atorvastatin 20 mg tablet completed Take 1 tablet once a day - Fiorella Nielson phentermine 37.5 mg tablet completed Take 1 tablet once a day - Fiorella Nielson paroxetine HCl 10 mg tablet active Take 1 tablet once a day Fiorella Nielson celecoxib 200 mg capsule active Take 1 tablet once a day Fiorella Nielson Euthyrox 75 mcg tablet active Take 1 tablet once a day Fiorella Nielson SOCIAL HISTORY Date Observation Value Provider personal history of marijuana use no Sadaomi Del Riomiglia [facility] drug use no Sadaomi Del Riomig shayy [facility] alcohol use yes Sadaomi Del Riomig shayy [facility] smoking status Never smoker Sada Cormier iglia [facility] smoking status Never smoker Lisa Bella social history reviewed E&M revi ewed - no changes required Omar Mireles MD smoking status Never smoker Bobbi Elvira smoking status Never smoker Antony alvarez social history E&M S moking History: Guillermo burnett has never smoked. Antony Hammer social history reviewed E&M revi ewed - no changes required Antony Hammer number of grandchildren Omar Beck social history E&M S moking History: Guillermo burnett has never smoked. Genaro Beck social history reviewed E&M revi ewed - no changes required Genaro Beck smoking status Never smoker Fiorella Simon chakraborty FUNCTIONAL STATUS Date Observation Value Provider HRA, CV Assess/Plan, Angina (inactive) Management Plan continue current therapy Sada Ventimigltenzin AUTO DEALER HRA, CV Assess/Plan, Angina (inactive) Management Plan continue current therapy Elpidio Ahalysazai HRA, CV Assess/Plan, Angina (inactive) Management Plan continue current therapy Elpidio Ahalysazai HRA, CV Assess/Plan, Angina (inactive) Management Plan continue current therapy Antony Hammer HRA, CV Assess/Plan, Angina (inactive) Management Plan continue current therapy Genaro Beck FAMILY HISTORY Family Member Condition Maternal Grandmother Family History of C VA or Stroke: Mother Family History of CV A or Stroke: INSURANCE PROVIDERS Payer name Policy type / Coverage type [employer] party ID [employer] EM[employer]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 [id number] ADVANCE DIRECTIVES Name Date DISCUSSED - NO DECISION MADE TREATMENT PLAN Date Name Performer [id number],SElpidio i [id number],SElpidio i [id number],SElpidio i [id number],SElpidio i [id number],S, Elpidio Ahmedza i [id number],S, Elpidio Ahmedza i [id number],S, Elpidio Ahmedza i [id number],S, Elpidio Ahmedza i [id number],S, Elpidio Ahmedza i [id number],S, Elpidio Ahmedza i [id number],S, Elpidio Ahmedza i [id number],S, Elpidio medza i [id number],S, Elpidio Alkamedza i [id number],S, Elpidio medza i [id number],S, Elpidio medza i [id number],S, Elpidio Ahmedza i [id number],S, Elpidio medza i [id number],S, Elpidio medza i [id number],S, Elpidio Ruckermedza i [id number],S, Elpidio Ruckermedza i Cardiology:weight loss encourage d Sada Ventimiglia [facility] Cardiology:will upda te Lipid panel t olerating repatha T he following medications were removed from the medication list: Repatha Sureclick 140 Mg/ml Pen Injector (Evolocumab) ..... Inject 1 ml (140 mg) by subcutaneous injection every 2 weeks. Nexlizet 180-10 Mg Tablet (Bempedoic acid-ezetimibe) ..... Take 1 tablet by mouth once a day Her updated medication list for this problem includes: Repatha Sureclick 140 Mg/ml Pen Injector (Evolocumab) ..... Inject 1 pen injector subcutaneously every two weeks Sadaomi Rogers [facility] Cardiology:The patie nt is using CPAP on a regular basis. The patient has been benefiting from therapy and should continue use. Sadaomi Rogers [facility] Cardiology:She c/o r ecurrent URI symptoms f aint systolic murmur on exam today W ill update labs to r/o underlying source W ill do echo to r/o any structural heart disease or LV dysfunction H er updated medication list for this problem includes: Aspirin 81 Mg Tablet,delayed Release (dr/ec) (Aspirin) ..... 1 tablet once a day [place] Sue [facility] Cardiology:continue with risk reduction. B P control. Lipd management and weight loss encouraged H er updated medication list for this problem includes: Aspirin 81 Mg Tablet,delayed Release (dr/ec) (Aspirin) ..... 1 tablet once a day [place] Sue [facility] Telehealth Elpidio Ahmedzai Telehealth Elpidio Ahmedzai Telehealth Elpidio Ahmedzai Telehealth Elpidio Ahmedzai Telehealth Elpdiio Ahmedzai Telehealth Elpidio Ahmedzai Telehealth Elpidio Ahmedzai Telehealth Elpidio Ahmedzai Telehealth Elpidio Ahmedzai Telehealth Elpidio Ahmedzai Cardiology Eplidio Ahmedzai Cardiology Elpidio Ahmedzai Cardiology Elpidio Ahmedzai Cardiology Elpidio Ahmedzai Cardiology Elpidio Ahmedzai Cardiology Elpidio Ahmedzai Cardiology Elpidio Ahmedzai Cardiology Elpidio Ahmedzai Cardiology Elpidio Ahmedzai Cardiology Elpidio Ahmedzai Cardiology Antony Downeyros Cardiology Antony Downeyros Cardiology: H er updated medication list for this problem includes: Atorvastatin Calcium 20 Mg Oral Tablet (Atorvastatin calcium) ..... Take 1 tab daily Antony Downeyros Cardiology Antony Downeyros Cardiology:Stress te st and echo 11/2019 were normal. Her updated medication list for this problem includes: Aspirin Ec 81 Mg Oral Tablet Delayed Release (Aspirin) ..... One tab daily Antony Lambros Cardiology New Patient Genaro Nac ht Cardiology New Patient Genaro Nac ht Cardiology New Patient Genaro Nac ht Cardiology New Patient Genaro Nac ht Cardiology New Patient Genaro Nac ht Cardiology New Patient Genaro Nac ht Date Name HEMOGLOBIN A1c Complete Echo CBC (INCLUDES DIFF/P LT) LIPID PANEL COMPREHENSIVE METABO LIC PANEL, W/EGFR HEPATIC FUNCTION WILLIS EL CBC (INCLUDES DIFF/P LT) HEMOGLOBIN A1c LIPID PANEL COMPREHENSIVE METABO LIC PANEL, W/EGFR Stress Exercise Card iolite Complete Echo HISTORY OF PROCEDURES Procedure Date Procedure Name Provider Procedure Notes S tatus EKG Omar Mireles MD completed EKG Omar Mireles MD completed EKG Omar Mireles MD completed Cardiolite, 2 units Omar Mireles MD completed SPECT Images Omar Mireles MD complet ed Stress EKG Omar Mireles MD completed
--- OUTSIDE RECORDS SUMMARY | 2024-05-18 13:14 | XMS_ITS | Clinical Summary ---
Author Organization [facility] Address [address] [place] [address] Care Team Providers Care Rod Placer Name Role Phone None, Provider Primary Care Provider Rex Chapman MD Unavailable [phone] Allergies Active Allergy Reactions Criticality Noted Date Comments Aspirin GI Upset 09/19/2021 Social History Tobacco Use Types Packs/Day Years Used Date Smoking Tobacco: Never Smokeless Tobacco: Never Alcohol Use Standard Drinks/Week Comments Yes 0 (1 standard drink = 0.6 oz pur e alcohol) Comments No Sex and Gender Information Value Date Recorded Sex Assigned at Not on file Legal Sex Female 4:12 PM CDT Gender Identity Not on file Sexual Orientation Not on file Last Filed Vital Signs Vital Sign Reading Time Taken Comments Blood Pressure 108/65 09/20/2021 2:24 AM CDT Pulse 60 09/20/2021 2:24 AM CDT Temperature 36.5 C (97.7 F) 09/19/2021 10:26 PM CDT Respiratory Rate 18 09/20/2021 2:24 AM CDT Oxygen Saturation 98% 09/20/2021 2:24 AM CDT Inhaled Oxygen Concentration - - Weight 96.7 kg (213 lb 3 oz) 09/19/2021 10:26 PM CDT Height 167.6 cm (5' 6 ) 09/19/2021 10:26 PM CDT Body Mass Index 34.41 09/19/2021 10:26 PM CDT Plan of Treatment Health Maintenance Due Date Last Done Comments Cervical Cancer Screening Pa p Smear (Age 30 to 64) Every 3 Years 1963 Colorectal Cancer Screening Colonoscopy (10 Years) 1963 Annual Physical 11/27/1966 Hepatitis C 11/27/1981 Cervical Cancer Screening Pa p with HPV Testing (Age 30 to 64) Every 5 Years 11/27/1993 Cervical Cancer Screening wi th HPV 11/27/1993 Mammogram Screening 2003 COVID-19 Vaccine (2023-2 5 season) 2023 Influenza Adult (#1) 2023 12/28/2019, 12/31/2018 DTaP, Tdap and Td Vaccines ( 2 - Td or Tdap) 12/31/2028 12/31/2018 RSV Immunization or 60+ Years (1 - 1-dose 75+ series) 11/27/2038 Zoster Vaccines Completed 01/18/2018, 10/13/2017 Meningococcal B Vaccine Aged Out No l onger eligible based on patient's age to complete this topic Meningococcal Vaccine Aged Out No breonna rafiq eligible based on patient's age to complete this topic Pneumococcal Vaccine: Pediatrics (0 to 5 Years) and At-Risk Patients (6 to 64 Years) Aged Out No longer eligible b ased on patient's age to complete this topic RSV Immunizations Under 20 Months Aged Out No longer eligible b ased on patient's age to complete this topic Insurance [facility] Care Teams Rod Placer Relationship Specialty Start Date End Date None, Provider, PCP - General 09/23/21 Rex Bedoya MD [address] [place] [address] [facility] 09/20/21
--- OUTSIDE RECORDS SUMMARY | 2024-05-18 13:14 | XMS_ITS | Referral Summary ---
Author Organization [facility] Address [address] [place] [address] Care Team Providers Care Configuration Management Administrator Name Role Phone Rex Fernando MD Primary Care Provider [phone] Source Comments [facility],non-owned Affiliates and Associated Physician Practices is amultiple site organization consisting of ambulatory clinics and hospital sitesin [place], [place], [place] and [place]. This disclosure is being madepursuant to the Care Everywhere program and may not contain all information available regarding this patient. Last updated 17.[facility] Allergies Active Allergy Reactions Criticality Noted Date Comments Aspirin Nausea Low 01/08/2015 Naproxen Nausea Low 01/08/2015 Social History Tobacco Use Types Packs/Day Years Used Date Smoking Tobacco: Former Alcohol Use Standard Drinks/Week Comments Yes 0 (1 standard drink = 0.6 oz pur e alcohol) Sex and Gender Information Value Date Recorded Sex Assigned at Not on file Gender Identity Not on file Sexual Orientation Not on file Plan of Treatment Not on file Care Teams Configuration Management Administrator Relationship Specialty Start Date End Date Rex Fernando MD [address] [place] [address] [address] [place] [address] PCP - General 01/21/10
--- OUTSIDE RECORDS SUMMARY | 2024-05-18 13:14 | XMS_ITS | Encounter Summary ---
Author Organization [facility] Address [address] [place] [address] Care Team Providers Care Modular Set Crew Member Name Role Phone Nicole Vazquez Primary Care Provider [phone] Encounter Details Date Type Department Care Team (Late st Contact Info) Description 05/17/2024 External Device Data [facility] Provider, Abstract NO ADDRESS ON FILE Social History Tobacco Use Types Packs/Day Years Used Date Smoking Tobacco: Never Smokeless Tobacco: Never Alcohol Use Standard Drinks/Week Comments Yes 0 (1 standard drink = 0.6 oz pur e alcohol) Comments Unknown Sex and Gender Information Value Date Recorded Sex Assigned at Not on file 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
--- OUTSIDE RECORDS SUMMARY | 2024-05-18 13:14 | XMS_ITS | Clinical Summary ---
Author Organization [facility] Re[facility] Address [address] [place] [address] Care Team Providers Care Check Weigher Name Role Phone Nicole Vazquez PEEWEE Primary Care Provider Allergies Active Allergy Reactions Criticality Noted Date Comments Aspirin Nausea and Vomiting Low 02/11/2021 Medications PARoxetine hcl (PAXIL) 10 mg/5 mL Suspension Take by mouth daily. Active levothyroxine 75 mcg tablet Euthyrox 75 mcg tablet TAKE 1 TABLET BY MOUTH ONCE DAILY Active metFORMIN (GLUCOPHAGE XR) 500 mg Extended Release 24 hour tablet Take by mouth. 2 Active Repatha Pushtronex 420 mg/3.5 mL wearable injector APPLY PATCH TO ABDOMINAL SKIN TO INJECT 420MG UNDER THE SKIN ONCE A MONTH DIRECTED 4 Active Cetirizine 5 mg/5 mL Solution Take by mouth. Activ e Active Problems Problem Noted Date Diagnosed Date Iron overload 02/11/2021 Encounters Date Type Department Care Team Description 05/17/2024 External Device Data [facility] ABSTRACTION Provider, Abstract 05/03/2024 External Device Data [facility] AB[facility]CTION Provider, Abstract 04/06/2024 External Device Data [facility] Provider, Abstract 03/28/2024 External Device Data [facility]CTION Provider, Abstract from Last 3 Months Family History Medical History Relation Name Comments Cancer Brother Cancer Father Heart Disease Father Heart Disease Mother Relation Name Status Comments Brother Alive Father Mother Sister 1 Alive Sister 2 Alive Sister 3 Alive Social History Tobacco Use Types Packs/Day Years Used Date Smoking Tobacco: Never Smokeless Tobacco: Never Tobacco Cessation:Counseling Given: Not Answered Alcohol Use Standard Drinks/Week Comments Yes 0 (1 standard drink = 0.6 oz pur e alcohol) Comments Unknown Sex and Gender Information Value Date Recorded Sex Assigned at Not on file 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 Gender Identity Not on file Sexual Orientation Not on file Last Filed Vital Signs Vital Sign Reading Time Taken Comments Blood Pressure 130/84 09/06/2023 1:44 PM CDT Pulse 65 09/06/2023 1:44 PM CDT Temperature 36.8 C (98.2 F) 09/06/2023 1:40 PM CDT Respiratory Rate 16 09/06/2023 1:40 PM CDT Oxygen Saturation 97% 09/06/2023 1:40 PM CDT Inhaled Oxygen Concentration - - Weight 94.8 kg (209 lb) 09/06/2023 1:40 PM CDT Height 167.6 cm (5' 6 ) 02/11/2021 10:51 AM CAB DRIVER Body Mass Index 33.73 02/11/2021 10:51 AM CAB DRIVER Plan of Treatment Health Maintenance Due Date Last Done Comments Pre-Diabetes and Diabetes Screening 1965 DTAP/TDAP/TD VACCINES (1 - Tdap) 11/27/1982 BREAST CANCER SCREENING 2003 FIT-DNA Q 3 years 11/27/2008 FIT/FOBT Q 1 year 11/27/2008 Flex Sig/CT Colonography Q 5 years 11/27/2008 ZOSTER VACCINE (1 of 2) 11/27/2013 CERVICAL CANCER SCREENING 01/27/2020 01/26/2017 INFLUENZA VACCINE (#1) 2023 0, 12/28/2019 Preventative Visit- Commercial 03/15/2024 COLORECTAL SCREENING 09/08/2025 09/09/2015 Colorectal Cancer Screening 09/08/2025 RSV VACCINE (60+ or ) (1 - 1-dose 75+ series) 11/27/2038 HEPATITIS B VACCINES Aged Out No long er eligible based on patient's age to complete this topic Insurance [facility] Care Teams Check Weigher Relationship Specialty Start Date End Date Nicole Vazquez ANP [address] [phone] PCP - General Nurse Practitioner Adult Health 02/11/21
--- OUTSIDE RECORDS SUMMARY | 2024-05-18 13:14 | XMS_ITS | Clinical Summary ---
Author Organization [facility] [employer] Address [address] [place] [address] Care Team Providers Care Energy Efficient Site Manager Name Role Phone Rex Fernando MD Primary Care Provider [phone] Source Comments [facility] [employer],non-owned Affiliates and Associated Physician Practices is amultiple site organization consisting of ambulatory clinics and hospital sitesin [place], [place], [place] and [place]. This disclosure is being madepursuant to the Care Everywhere program and may not contain all information available regarding this patient. Last updated 17.[facility] [employer] Allergies Active Allergy Reactions Criticality Noted Date [...] Orientation Not on file Plan of Treatment Health Maintenance Due Date Last Done Comments COLOGUARD (AGES 45-75) - COL ON CA SCREENING 1963 COLON MONITORING 1963 COLONOSCOPY - COLON CA SCREENING 1963 CT COLONOGRAPHY - COLON CA SCREENING 1963 Colorectal Cancer Screening 1963 FIT - COLON CA SCREENING 1963 FLEX SIG - COLON CA SCREENING 1963 LIPID TESTING 1963 MAMMOGRAM 1963 PAP SMEAR 1963 HIV SCREENING 11/27/1978 HEPATITIS C SCREENING 11/23/1981 DTAP/TDAP/TD VACCINES (1 - Tdap) 11/27/1982 PNEUMOCOCCAL VACCINE 50+ (1 of 1 - PCV) 11/27/2013 ZOSTER VACCINE (1 of 2) 11/27/2013 COVID-19 VACCINE ( - 2023-2 5 season) 2023 INFLUENZA VACCINE (#1) 2023 DEPRESSION SCREENING 03/15/2024 Respiratory Syncytial Virus (RSV) Vaccine Pt: or over 60 yrs (1 - 1-dose 75+ series) 11/27/2038 HEPATITIS B VACCINE Aged Out No longe r eligible based on patient's age to complete this topic HIB VACCINE Aged Out No longer eligi ble based on patient's age to complete this topic HPV VACCINE Aged Out No longer eligi ble based on patient's age to complete this topic MENINGOCOCCAL (Group B) VACCINE Aged Out No longer eligible based on patient's age to complete this topic MENINGOCOCCAL VACCINE Aged Out No breonna rafiq eligible based on patient's age to complete this topic PNEUMOCOCCAL VACCINE Aged Out No long er eligible based on patient's age to complete this topic Care Teams Energy Efficient Site Manager Relationship Specialty Start Date End Date Rex Fernando MD [facility] [place] [address] PCP - General 01/21/10
--- OUTSIDE RECORDS SUMMARY | 2024-05-18 13:14 | XMS_ITS | Clinical Summary ---
Author Organization [facility] Address [address] [place] [address] Phone Care Team Providers Care Oyster Grader Name Role Phone Rex Fernando MD Primary Care Provider Gustavoroel Darío Herlinda DO Unavailable [phone] Allergies Active Allergy Reactions Criticality Noted Date Comments Nsaids Other (see Comments) 08/22/2018 abd pain Medications celecoxib (CELEBREX) 200 MG Capsule Take 200 mg by mouth daily. Active levothyroxine (SYNTHROID) 50 MCG Tablet Take 50 mcg by mouth daily. Active TURMERIC PO Take 1,000 mg by mouth daily. Active Cholecalciferol (VITAMIN D PO) Take 1 Tab by mouth daily. Active PARoxetine (PAXIL) 10 MG Tablet Take 10 mg by mouth daily. Active Nutritional Supplements (JUICE PLUS FIBRE PO) Take 1 Tab by mouth daily. Active Family History Medical History Relation Name Comments Colon Cancer Brother Cancer Father esophageal canc er Lung Cancer Father Colon Cancer Maternal Grandfather Colon Cancer Maternal Uncle Heart Attack Mother Relation Name Status Comments Brother Father Maternal Grandfather Maternal Uncle Mother Social History Tobacco Use Types Packs/Day Years Used Date Smoking Tobacco: Former Cigarettes 0.3 10 0 09/20/1995 - 09/19/2005 Smokeless Tobacco: Never Alcohol Use Standard Drinks/Week Comments Yes 15 (1 standard drink = 0.6 oz pu re alcohol) WEEKLY DRINKS Comments Unknown Sex and Gender Information Value Date Recorded Sex Assigned at Not on file Legal Sex Female 10:18 PM CDT Gender Identity Not on file Sexual Orientation Not on file Last Filed Vital Signs Vital Sign Reading Time Taken Comments Blood Pressure 111/72 09/26/2018 6:40 AM CDT Pulse 58 09/26/2018 6:40 AM CDT Temperature 37 C (98.6 F) 09/26/2018 6:40 AM CDT Respiratory Rate 19 09/26/2018 6:40 AM CDT Oxygen Saturation 99% 09/26/2018 6:40 AM CDT Inhaled Oxygen Concentration - - Weight 86.2 kg (190 lb) 09/26/2018 5:40 AM CDT Height 167.6 cm (5' 6 ) 09/26/2018 5:40 AM CDT Body Mass Index 30.67 09/26/2018 5:40 AM CDT Plan of Treatment Health Maintenance Due Date Last Done Comments Hepatitis C Virus (HCV) Screening 1965 TdaP Immunization 1965 Pap Smear 11/27/1984 Cervical Cancer Screening (CCS) 11/27/1993 HPV/Cotest 11/27/1993 Cologuard 11/27/2013 Immunochemical Fecal Occult Blood 11/27/2013 Mammogram 11/27/2013 Pneumococcal Immunization (5 0+ years) (1 of 1 - PCV) 11/27/2013 Zoster Immunization (1 of 2) 11/27/2013 Colonoscopy 09/26/2021 09/26/2018, 09/09/2015 Colorectal Cancer Screening 09/26/2021 Influenza Immunization (#1) 2023 SARS-COV-2 Immunization ( - season) 2023 Respiratory Syncytial Virus (RSV) Immunization (Adult) (1 - 1-dose 75+ series) 11/27/2038 09/26/2018, 09/09/2015 Hepatitis B Immunization Aged Out No longer eligible based on patient's age to complete this topic Meningococcal Immunization (ACWY) Aged Out No longer eligible b ased on patient's age to complete this topic Pneumococcal Immunization Combined Aged Out No longer eligible b ased on patient's age to complete this topic Rotavirus Immunization Aged Out No lo nger eligible based on patient's age to complete this topic Procedures Procedure Name Priority Date/Time Associated Diagnosis Comments COLONOSCOPY Routine 09/09/2015 from Last 3 Months or Most Recently Relevant to Health Maintenance Results * HM COLONOSCOPY (09/09/2015) Rex Fernando MD PROCEDURE/MINOR SURGICAL OR DERABLES Final Result from Last 3 Months or Most Recently Relevant to Health Maintenance Insurance [facility] Care Teams Oyster Grader Relationship Specialty Start Date End Date Rex Fernando MD [address] [place] [address] [place] [address] PCP - General Behavioral Health Clinician 09/09/15 Darío Kirby DO [address] [place] [address] [place] [address] Gastroenterology 09/09/15
[2024-05-18 14:04] LABS: Hemoglobin A1C 5.7 % (<5.7)
== END 2024-05-18 11:41 | disposition home or self-care (01) ==
PROVIDERS: PCP Nurse Practitioner Adult Health; Visit Provider Internal Medicine Cardiovascular Disease
DX: E78.5 Hyperlipidemia, unspecified (principal); I25.10 Atherosclerotic heart disease of native coronary artery without angina pectoris; G47.33 Obstructive sleep apnea (adult) (pediatric); E66.9 Obesity, unspecified; R06.02 Shortness of breath; Z82.3 Family history of stroke; Z82.49 Family history of ischemic heart disease and other diseases of the circulatory system; Z13.6 Encounter for screening for cardiovascular disorders
CPT/HCPCS: 36415; 83036

== ENCOUNTER 2024-10-02 13:55 | Outpatient (CLI) | payer OTHER, SELFPAY ==
--- NOTE | ~2024-10-02 | MM_ITS ---
EXAMINATION: MM screening jonny BI w alicia HISTORY: Screening TECHNIQUE: Craniocaudal and mediolateral oblique 3-D tomosynthesis images were obtained and synthetic 2-D images were generated. CAD analysis was submitted and interpreted. COMPARISON: Comparison to multiple prior studies sequentially, with oldest reviewed study dated 08/27. BREAST PARENCHYMAL COMPOSITION: There are scattered areas of fibroglandular density. FINDINGS: There is no evidence of suspicious mass, calcification, or architectural distortion to sug gest malignancy in either breast. IMPRESSION: 1. No mammographic evidence of malignancy. 2. Recommend routine screening mammography in one year. BI-RADS Category 1: Negative Reviewed, dictated and finalized at location B.
--- OUTSIDE RECORDS SUMMARY | 2024-10-02 13:58 | XMS_ITS | Clinical Summary ---
Author Organization [facility] Address [address] [place] [address] Phone Care Team Providers Care Clinical Laboratory Aides Teacher Name Role Phone Rex Fernando MD Primary Care Provider [phone] Mirta Darío Herlinda DO Unavailable [phone] Allergies Active Allergy Reactions Criticality Noted Date [...] 5:40 AM CDT Height 167.6 cm (5' 6) 09/26/2018 5:40 AM CDT Body Mass Index 30.67 09/26/2018 5:40 AM CDT Plan of Treatment Health Maintenance Due Date Last Done Comments Hepatitis C Virus (HCV) Screening 1965 TdaP Immunization 1963 Pap Smear 11/27/1984 Cervical Cancer Screening (CCS) 11/27/1993 HPV/Cotest 11/27/1993 Cologuard 11/27/2008 Immunochemical Fecal Occult Blood 11/27/2008 Pneumococcal Immunization (5 0+ years) (1 of 1 - PCV) 11/27/2013 Zoster Immunization (1 of 2) 11/27/2013 Colonoscopy 09/26/2021 09/26/2018, 09/09/2015 Colorectal Cancer Screening 09/26/2021 SARS-COV-2 Immunization (1 - 2023- season) 2023 Influenza Immunization (#1) 2024 Respiratory Syncytial Virus (RSV) Immunization (Adult) (1 - 1-dose 75+ series) 11/27/2038 Hepatitis B Immunization Aged Out No longer eligible based on patient's age to complete this topic Human Papillomavirus (HPV) Immunization Aged Out No longer eligible b ased on patient's age to complete this topic Meningococcal Immunization (ACWY) Aged Out No longer eligible b ased on patient's age to complete this topic Rotavirus Immunization Aged Out No lo nger eligible based on patient's age to complete this topic Procedures Procedure Name Priority Date/Time Associated Diagnosis Comments HM COLONOSCOPY Routine 09/09/2015 from Last 3 Months or Most Recently Relevant to Health Maintenance Results * HM COLONOSCOPY (09/09/2015) Rex Fernando MD PROCEDURE/MINOR SURGICAL OR DERABLES Final Result from Last 3 Months or Most Recently Relevant to Health Maintenance Insurance [facility] Care Teams Clinical Laboratory Aides Teacher Relationship Specialty Start Date End Date Rex Fernando MD [facility] [place] [address] PCP - General Manager Critical Care Unit 09/09/15 Darío Kirby DO [address] [place] [address] [place] [address] Gastroenterology 09/09/15
--- OUTSIDE RECORDS SUMMARY | 2024-10-02 13:58 | XMS_ITS | Clinical Summary ---
Author Organization [facility] [employer] Address [address] [place] [address] Care Team Providers Care Trolley Cleaner Name Role Phone Rex Fernando MD Primary Care Provider [phone] Source Comments [facility] [employer],non-owned Affiliates and Associated Physician Practices is amultiple site organization consisting of ambulatory clinics and hospital sitesin [place], [place], [place] and [place]. This disclosure is being madepursuant to the Care Everywhere program and may not contain all information available regarding this patient. Last updated 17.[facility] [employer] Allergies Active Allergy Reactions Criticality Noted Date Comments Aspirin Nausea Low 01/08/2015 Naproxen Nausea Low 01/08/2015 Social History Tobacco Use Types Packs/Day Years Used Date Smoking Tobacco: Former Alcohol Use Standard Drinks/Week Comments Yes 0 (1 standard drink = 0.6 oz pur e alcohol) Comments Unknown Sex and Gender Information Value Date Recorded Sex Assigned at Not on file Legal Sex Female 5:49 PM HOUSE NURSE Gender Identity Not on file Sexual Orientation [...] SCREENING 1965 LIPID TESTING 1963 MAMMOGRAM 1963 HIV SCREENING 11/27/1978 HEPATITIS C SCREENING 11/23/1981 DTAP/TDAP/TD VACCINES (1 - Tdap) 11/27/1982 PAP SMEAR 11/27/1984 PNEUMOCOCCAL VACCINE 50+ (1 of 1 - PCV) 11/27/2013 ZOSTER VACCINE (1 of 2) 11/27/2013 COVID-19 VACCINE (1 - 2023-2 5 season) 2023 DEPRESSION SCREENING 03/15/2024 INFLUENZA VACCINE (#1) 2024 Respiratory Syncytial Virus (RSV) Vaccine Pt: or [...] to complete this topic MENINGOCOCCAL (Group B) VACC INE SHARED DECISION-MAKING Aged Out No longer eligibl e based on patient's age to complete this topic MENINGOCOCCAL GROUPS A/C/Y/W VACCINE Aged Out No longer eligible b ased on patient's age to complete this topic Insurance [facility] Address: [facility] [id number] [place] [address] ANTHEM AN[employer]M [employer]NA [place] C[place] [id number] [place] [id number] [place] [id number] [place] [id number] [place] [address] [place] [address] Care Teams Trolley Cleaner Relationship Specialty Start Date End Date Rex Fernando MD [address] [place] [address] [address] [place] [address] PCP - General 01/21/10
--- OUTSIDE RECORDS SUMMARY | 2024-10-02 13:58 | XMS_ITS | Clinical Summary ---
Author Organization [facility] Address [address] [place] [address] Care Team Providers Care Wardrobe Attendant Name Role Phone None, Provider Primary Care Provider Rex Chapman MD Unavailable [phone] Allergies Active Allergy Reactions Criticality Noted [...] 10:26 PM CDT Height 167.6 cm (5' 6) 09/19/2021 10:26 PM CDT Body Mass Index [...] wi th HPV 11/27/1993 Mammogram Screening 2003 Pneumococcal Vaccine: 50+ Years (1 of 1 - PCV) 11/27/2013 COVID-19 Vaccine (1 - 2023-2 5 season) 2023 DTaP, Tdap and Td Vaccines ( 2 [...] patient's age to complete this topic Insurance [facility] Care Teams Wardrobe Attendant Relationship Specialty Start Date End Date None, Provider, PCP - General 09/23/21 Rex Bedoya MD [address] [place] [address] [facility] 09/20/21
--- OUTSIDE RECORDS SUMMARY | 2024-10-02 13:58 | XMS_ITS | Data Portability ---
Author Organization [facility], Main Office Address [address] [place] [address] Assessment No assessment recorded. Plan of Treatment Reminders Order Date Submit Date Provider Last Modified By Organization Details Last Modified Time Details Appointments None recorded . Lab HbA1c (hemoglo bin A1c), blood 023 06/04/[address] (Lab), [address] [place], [address], 3 16:14:11 TSH, serum, reflex free T4 023 06/04/[address] (Lab), [address] [place], [address], 3 16:13:47 Referral None recorded . Procedures [...] 2016, 39(Crockett ppl.1 ):s13 -s22 Not Available [facility] (Lab) [address] [place], [address], 10/03/2020 21:47:09 10/04/19 21 10/03/2020 VITAM IN B12 (JERRY MAL ) vb12 436 pg/mL 239-93 1 Not Available [facility] (Lab) [address] [place], [address], 10/03/2020 20:34:48 10/04/19 21 10/03/2020 TSH thyroid-stim ulating hormone 2.130 uIU/m L 0.465- 4.680 Not Available [facility] (Lab) [address] [place], [address], 10/03/2020 20:15:46 10/04/1910/03/2020 VITAM IN D 25-HY DROXY vd25oh 81.6 NG/mL 30-100 Vitam in D Statu s: Defic ient: <20 ng/mL Insuf ficie nt: 20-29 ng/mL Suffi cient : 30-10 0 ng/mL Not Available [facility] (Lab) [address] [place], [address], 10/03/2020 19:57:42 10/04/1910/03/2020 LIPID PANEL cholesterol 277 mg/dL 140-19 9 high NIH AMARI NSUS RECOM MENDA TION FOR SORAYA STERO L: ADULT CHILD LOW RISK: <200 <170 BORDE RLINE : <200- 239 ----- HIGH RISK: >240 >200 Not Available [facility] (Lab) [address] [place], [address], 10/03/2020 19:47:17 10/04/1910/03/2020 LIPID PANEL triglyceride s 62 mg/dL 0-150 NIH AMARI NSUS REPOR T RECOM MENDA TION FOR TRIGL YCERI JESSICA: ADULT CHILD LOW RISK: <150 ----- BODER LINE: 150-1 99 ----- HIGH RISK: >200 ----- Not Available [facility] (Lab) [address] [place], [address], 10/03/2020 19:47:17 10/04/19 21 10/03/2020 LIPID PANEL HDL cholesterol 175 mg/dL 40- Not Available [facility] (Lab) [address] [place], [address], 10/03/2020 19:47:17 10/04/19 21 10/03/2020 LIPID PANEL [...] WILL NOT BE REPOR WINTER. Not Available [facility] (Lab) [address] [place], [address], 10/03/2020 19:47:17 10/04/19 21 10/03/2020 HEPAT IC/LI BREANA PANEL alkaline phosphatase 69 U/L 38-126 Not Available [facility] (Lab) [address] [place], [address], 10/03/2020 19:42:16 10/04/1910/03/2020 HEPAT IC/LI BREANA PANEL alanine aminotransfe rase 46 U/L 0-35 high Not Available [facility] (Lab) [address] [place], [address], 10/03/2020 19:42:16 10/04/19 21 10/03/2020 HEPAT IC/LI BREANA PANEL aspartate aminotransfe rase 56 U/L 15-37 high Not Available [facility] (Lab) [address] [place], [address], 10/03/2020 19:42:16 10/04/19 21 10/03/2020 HEPAT IC/LI BREANA PANEL bilirubin, total 0.60 mg/dL 0.20-1 .30 Not Available [facility] (Lab) [address] [place], [address], 10/03/2020 19:42:16 10/04/19 21 10/03/2020 HEPAT IC/LI BREANA PANEL bilirubin, conjugated (direct) 0.00 mg/dL 0.00-0 .30 Not Available [facility] (Lab) [address] [place], [address], 10/03/2020 19:42:16 10/04/1910/03/2020 HEPAT IC/LI BREANA PANEL biliurubin,u ncong. (indirect) 0.30 mg/dL 0.00-1 .1 Not Available [facility] (Lab) [address] [place], [address], 10/03/2020 19:42:16 10/04/1910/03/2020 HEPAT IC/LI BREANA PANEL total protein 7.8 g/dL 6.3-8. 2 Not Available [facility] (Lab) [address] [place], [address], 10/03/2020 19:42:16 10/04/1910/03/2020 HEPAT IC/LI BREANA PANEL albumin 4.2 g/dL 3.4-5. 0 Not Available [facility] (Lab) [address] [place], [address], 10/03/2020 19:42:16 10/04/1910/03/2020 HEPAT IC/LI BREANA PANEL globulin 3.6 g/dL 2.6-4. 2 Not Available [facility] (Lab) [address] [place], [address], 10/03/2020 19:42:16 10/04/1910/03/2020 HEPAT IC/LI BREANA PANEL A/G ratio 1.2 ratio 1.0-2. 0 Not Available [facility] (Lab) [address] [place], [address], 10/03/2020 19:42:16 10/04/19 21 10/03/2020 BASIC METAB OLIC PANEL sodium 135 mmol/ L 137-14 5 low Not Available [facility] (Lab) [address] [place], [address], 10/03/2020 19:42:13 10/04/19 21 10/03/2020 BASIC METAB OLIC PANEL potassium 4.8 mmol/ L 3.5-5. 1 Not Available [facility] (Lab) [address] [place], [address], 10/03/2020 19:42:13 10/04/19 21 10/03/2020 BASIC METAB OLIC PANEL chloride 102 mmol/ L 98-107 Not Available [facility] (Lab) [address] [place], [address], 10/03/2020 19:42:13 10/04/19 21 10/03/2020 BASIC METAB OLIC PANEL carbon dioxide 28 mmol/ L 22-30 Not Available [facility] (Lab) [address] [place], [address], 10/03/2020 19:42:13 10/04/19 21 10/03/2020 BASIC METAB OLIC PANEL agap 9.8 mmol/ L 14-22 low Not Available [facility] (Lab) [address] [place], [address], 10/03/2020 19:42:13 10/04/19 21 10/03/2020 BASIC METAB OLIC PANEL glucose 86 mg/dL 70-99 Not Available [facility] (Lab) [address] [place], [address], 10/03/2020 19:42:13 10/04/19 21 10/03/2020 BASIC METAB OLIC PANEL BUN 16 mg/dL 8-19 Not Available [facility] (Lab) [address] [place], [address], 10/03/2020 19:42:13 10/04/19 21 10/03/2020 BASIC METAB OLIC PANEL creatinine 0.61 mg/dL 0.66-1 .25 low Not Available [facility] (Lab) [address] [place], [address], 10/03/2020 19:42:13 10/04/19 21 10/03/2020 BASIC METAB OLIC PANEL GFR >60 Refer ence Range : [place] ge GFR Healt hy Adult : >60 [...] lator can be locat ed on the [facility] websi te: [email or web address] :[email or web address] rg/pr ofess ional s/kdo qi/gf r_cal culat or Not Available [facility] (Lab) [address] [place], [address], 10/03/2020 19:42:13 10/04/1910/03/2020 BASIC METAB OLIC PANEL calcium 9.0 mg/dL 8.4-10 .2 Not Available [facility] (Lab) [address] [place], [address], 10/03/2020 19:42:13 10/04/19 21 10/03/2020 CBC W/O DIFFE RENTI AL mean red cell hemoglobin 30.9 pg 27.0-3 3.0 Not Available [facility] (Lab) [address] [place], [address], 10/03/2020 19:34:18 10/04/1910/03/2020 CBC W/O DIFFE RENTI AL white blood cells 4.4 x10'3 /uL 4.2-10 .8 Not Available [facility] (Lab) [address] [place], [address], 10/03/2020 19:34:18 10/04/19 21 10/03/2020 CBC W/O DIFFE RENTI AL red blood cells 4.47 x10'6 /uL 3.80-5 .20 Not Available [facility] (Lab) [address] [place], [address], 10/03/2020 19:34:18 10/04/1910/03/2020 CBC W/O DIFFE RENTI AL hemoglobin 13.8 g/dL 12.0-1 5.6 Not Available [facility] (Lab) [address] [place], [address], 10/03/2020 19:34:18 10/04/1910/03/2020 CBC W/O DIFFE RENTI AL hematocrit 42.2 % 35.7-4 5.7 Not Available [facility] (Lab) [address] [place], [address], 10/03/2020 19:34:18 10/04/19 21 10/03/2020 CBC W/O DIFFE RENTI AL mean red cell volume 94.4 fL 82.0-9 9.0 Not Available [facility] (Lab) [address] [place], [address], 10/03/2020 19:34:18 10/04/19 21 10/03/2020 CBC W/O DIFFE RENTI AL mean RBC HGB concentratio n 32.7 g/dL 31.0-3 6.0 Not Available [facility] (Lab) [address] [place], [address], 10/03/2020 19:34:18 10/04/19 21 10/03/2020 CBC W/O DIFFE RENTI AL red cell distribution width 12.5 % 11.8-1 5.5 Not Available [facility] (Lab) [address] [place], [address], 10/03/2020 19:34:18 10/04/19 21 10/03/2020 CBC W/O DIFFE RENTI AL platelets 210 x10'3 /uL 150-40 0 Not Available [facility] (Lab) [address] [place], [address], 10/03/2020 19:34:18 10/04/19 21 10/03/2020 CBC W/O DIFFE RENTI AL mean platelet volume 11.5 fL 9.0-12 .4 Not Available [facility] (Lab) [address] [place], [address], 10/03/2020 19:34:18 10/29/19 21 10/29/2020 SARS- COV-2 ANTIB GET, IGG sars-cov-2 antibody, IgG positi ve negati ve normal Resul ts sugge st recen t or prior infec tion with SARS- CoV-2 . Corre latio n with epide miolo gic risk facto rs and other clini samanta and labor atory findi ngs is recom fabby coleman. Serol ogic resul ts shoul d not [...] CoV-2 spike prote in inclu ding the receptionist/telephone operator tor giovanna ng domai n (RBD) . Not Available [facility] ([facility]) [address] [facility], [place], [address], 10/29/2020 14:11:38 10/29/1910/29/2020 SARS- COV-2 ANTIB GET, [...] labor atory findi ngs is recom fabby coleman. Serol ogic resul ts shoul d not be used as the sole basis to diagn ose or exclu de recen t SARS- CoV-2 infec tion. This assay detec ts antib odies again st SARS- CoV-2 spike prote in inclu ding the receptionist/telephone operator tor giovanna ng domai n (RBD) . Not Available [facility] ([facility]) [address] [facility], [place], [address], 10/29/2020 14:11:36 01/09/2001/09/2021 MAGNE SIUM magnesium 1.8 mg/dL 1.6-2. 3 Not Available [facility] ([facility]) [address] [facility], [place], [address], 01/09/2021 10:37:19 01/09/2001/09/2021 FE+TI BC+FE R iron bind.cap.(TI BC) 343 ug/dL 250-45 0 Not Available [facility] ([facility]) [address] [place], [address], 01/09/2021 10:37:19 01/09/20 21 01/09/2021 FE+TI BC+FE R UIBC 282 ug/dL 131-42 5 Not Available [facility] ([facility]) [address] [place], [address], 01/09/2021 10:37:19 01/09/20 21 01/09/2021 FE+TI BC+FE R iron 61 ug/dL 27-159 Not Available [facility] ([facility]) [address] [place], [address], 01/09/2021 10:37:19 01/09/20 21 01/09/2021 FE+TI BC+FE R iron saturation 18 % 15-55 Not Available [facility] ([facility]) [address] [place], [address], 01/09/2021 10:37:19 01/09/20 21 01/09/2021 FE+TI BC+FE R ferritin 553 NG/mL 15-150 above high normal Not Available [facility] ([facility]) [address] [place], [address], 01/09/2021 10:37:19 01/22/20 21 01/22/2021 C-ISIS CTIVE PROTE IN, QUANT C-reactive protein, quant 1 mg/L 0-10 Not Available [facility] ([facility]) [address] [place], [address], 01/22/2021 11:39:36 01/22/20 21 01/22/2021 SEDIM ENTAT ION RATE- WESTE RGREN sedimentatio n rate-westerg prince 8 mm/HR 0-40 Not Available [facility] ([facility]) [address] [facility] [place], [address], 01/22/2021 11:39:36 01/22/20 21 01/22/2021 XIN W/REF JAVED IF POSIT ЮЛИЯ XIN direct negati ve negati ve Not Available [facility] ([facility]) [address] [facility], [place], [address], 01/22/2021 11:39:35 05/15/19 22 05/15/2021 HEPAT IC FUNCT ION PANEL (7) protein, total 7.5 g/dL 6.0-8. 5 Not Available [facility] ([facility]) [address] [facility] [place], [address], 05/15/2021 05:09:30 05/15/19 22 05/15/2021 HEPAT IC FUNCT ION PANEL (7) albumin 4.0 g/dL 3.8-4. 9 Not Available [facility] ([facility]) [address] [facility], [place], [address], 05/15/2021 05:09:30 05/15/19 22 05/15/2021 HEPAT IC FUNCT ION PANEL (7) bilirubin, total 0.4 mg/dL 0.0-1. 2 Not Available [facility] ([facility]) [address] [facility] [place], [address], 05/15/2021 05:09:30 05/15/19 22 05/15/2021 HEPAT IC FUNCT ION PANEL (7) bilirubin, direct 0.14 mg/dL 0.00-0 .40 Not Available [facility] ([facility]) [address] [facility] [place], [address], 05/15/2021 05:09:30 05/15/19 22 05/15/2021 HEPAT IC FUNCT ION PANEL (7) alkaline phosphatase 85 IU/L 44-121 Not Available [facility] ([facility]) [address] [facility] [place], [address], 05/15/2021 05:09:30 05/15/19 22 05/15/2021 HEPAT IC FUNCT ION PANEL (7) AST (SGOT) 47 IU/L 0-40 above high normal Not Available [facility] ([facility]) [address] [facility] [place], [address], 05/15/2021 05:09:30 05/15/19 22 05/15/2021 HEPAT IC FUNCT ION PANEL (7) ALT (SGPT) 45 IU/L 0-32 above high normal Not Available [facility] (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) [address] [facility] [place], [address], 05/15/2021 05:09:29 05/15/19 22 05/15/2021 LIPID PANEL cholesterol, total 368 mg/dL 100-19 9 above high normal Not Available [facility] ([facility]) [address] [facility] [place], [address], 05/15/2021 05:09:29 05/15/19 22 05/15/2021 LIPID PANEL triglyceride s 60 mg/dL 0-149 Not Available [facility] ([facility]) [address] [facility] [place], [address], 05/15/2021 05:09:29 05/15/19 22 05/15/2021 LIPID PANEL HDL cholesterol 178 mg/dL >39 Resul ts confi rmed on dilut ion. Not Available [facility] ([facility]) [address] [facility] [place], [address], 05/15/2021 05:09:29 05/15/19 22 05/15/2021 LIPID PANEL VLDL cholesterol samanta 7 mg/dL 5-40 Not Available [facility] ([facility]) [address] [facility], [place], [address], 05/15/2021 05:09:29 05/15/19 22 05/15/2021 LIPID PANEL LDL chol calc ([facility]) 183 mg/dL 0-99 above high normal Not Available [facility] ([facility]) [address] [facility], [place], [address], 05/15/2021 05:09:29 01/14/20 21 01/08/2021 XR, knee, 3 view No observ ation record ed. [id number] [place] [address], [place], [address], 05/13/2022 03:16:23 03/12/20 21 03/12/2021 US, abdom en, compl ete No observ ation record ed. [id number] [address], [place], [address], 05/13/2022 03:16:23 04/16/19 22 04/15/2021 CT, abdom en + pelvi s, w/o contr ast No observ ation record ed. [id number] [facility] [address] [place], [address], 05/13/2022 03:16:23 04/16/19 22 04/15/2021 XR, chest , 2 view No observ ation record ed. [id number] [facility] [address] [place], [address], 05/13/2022 03:16:23 06/20/19 22 06/19/2021 XR, knee, 3 view No observ ation record ed. [id number] [address], [place], [address], 05/13/2022 03:16:23 09/26/19 22 09/25/2021 ortho pedic surge ry* No observ ation record ed. [id number], [place], [address], 05/13/2022 03:16:23 01/08/20 22 01/05/2022 XR, knee, 3 view No observ ation record ed. [id number], [place], [address], 05/13/2022 03:16:23 04/14/19 23 04/14/2022 imagi ng/di agnos tic resul t No observ ation record ed. [id number], [place], [address], 05/13/2022 03:16:23 06/09/19 23 06/03/2022 XR, knee No observ ation record ed. [email or web address] [address], [place], [address], 06/08/2022 19:22:12 11/06/19 23 10/29/2022 XR, knee, 3 view No observ ation record ed. [email or web address] [address], [place], [address], 11/05/2022 12:54:28 06/15/19 25 06/12/2024 imagi ng/di agnos tic resul t No observ ation record ed. [facility] [address] [address], [place], [address], 06/14/2024 09:07:16 Result Notes None recorded. Problems Name Problem SNOMED Code Status Onset Date Resolution Date Notes Provider Name and Address Organization Details Recorded Time Viral pharyngiti s 3207075 Completed Not Available [facility] 3 03:11:02 Skin tag 002177886 Completed Not Available [facility] 3 03:11:02 Actinic keratosis 203987616 Active Not Available [facility] 3 03:11:02 Osteoarthr itis of knee 245014463 Active Not Available [facility] 3 03:11:02 Pain in calf 175878353 Completed Not Available [facility] 3 03:11:02 Current tear of medial cartilage AND/OR meniscus of knee Active Not Available [facility] 3 03:11:02 Paresthesi a of foot 459198341 Completed Not Available [facility] 3 03:11:02 Knee pain Active Not Available [facility] 3 03:11:02 Hyperthyro idism 61615017 Completed Not Available [facility] 3 03:11:02 Melanocyti c nevus 904904936 Active Not Available [facility] 3 03:11:02 Onychomyco sis 908674511 Completed Not Available [facility] 3 03:11:02 Eczema 13485855 Active Not Available [facility] 3 03:11:02 Inflammati on of sacroiliac joint 69879974 Active Not Available [facility] 3 03:11:03 Hyperlipid emia 66421021 Active Not Available [facility] 3 03:11:03 Carpal tunnel syndrome 24686403 Active Not Available [facility] 3 03:11:03 Prickly heat 33029491 Completed Not Available [facility] 3 03:11:03 Family history of Myocardial infarction 567422585 Active 2019 Not Available [facility] 3 03:11:02 Hypothyroi dism 44356319 Active 2019 Not Available [facility] 3 03:11:02 Hyperglyce moose 04097435 Active 2019 Not Available [facility] 3 03:11:03 Obstructiv e sleep apnea syndrome 93991894 Active 2019 Not Available [facility] 3 03:11:03 Coronary atheroscle rosis 116769923 Active 2019 Not Available [facility] 3 03:11:03 Calcificat ion of coronary artery 329673241 Active 2019 Not Available [facility] 3 03:11:03 COVID-19 602556194 Active 2020 Not Available [facility] 3 03:11:03 Liver enzymes level above reference range 587031634 Active 2022 TERESA Adam [address], [place], [address] , [employer] 3 15:43:30 Menopausal flushing 560415779 Active 2022 TERESA Adam [address], [address], [place], [address] , [employer] 3 15:56:10 Problem Notes None recorded. Procedures Surgical History Date Name Laterality Status Provider Name and Address Organization Details Recorded Time Knee arthroscopy/surg jacklyn completed Not Available [facility] 05/13/2022 03:07:20 Carpal tunnel surgery completed Not Available [facility] 05/13/2022 03:07:20 total replacement of right knee joint completed TERESA Adam [address] [employer], [place], [address], [employer] 06/03/2022 15:41:06 total replacement of left knee joint completed TERESA Adam [address] [employer], [place], [address], [employer] 06/03/2022 15:41:28 Imaging Results None recorded. Procedure Notes None recorded. Medical Equipment None Reported. Allergies Allergen ID Allergen Name Allergen Category Reaction Reaction Severity Criticality Documentation Date Start Date Code Code System Note Provider Name and Address Organization Details Recorded Time 5621 aspirin medicatio n abdominal pain Not available Not available 05/13/2022 1191 RxNorm Not Available [facility] 3 03:16:02 5622 Easprin medicatio n Not available Not available Not available 05/13/202221412 4 RxNorm Not Available [facility] 3 03:16:02 Medications Name Sig Start Date [...] in Arterial blood by Pulse oximetry Systolic And Diastolic Provider Name and Address Organization Details Last Updated DateTime 3 167.64 cm 32.6 kg/m2 22349.6 6 g 97.5 [degF] 75 /min 98 % 98 % 116/80 mm[Hg] Nichole Ortega [place] [facility] [place] [employer] [facility] 3 15:24:04 Date Recorded Body mass index (BMI) Body height Oxygen saturation Oxygen saturation in Arterial blood by Pulse oximetry Heart rate Body temperature Body weight Systolic And Diastolic Provider Name and Address Organization Details Last Updated DateTime 1 33.4 kg/m2 167.64 cm 97 % 97 % 85 /min 97.2 [degF] 84721.6 2 g 124/84 mm[Hg] Not Available [facility] 3 03:09:24 Date Recorded Body mass index (BMI) Body height Oxygen saturation Oxygen saturation in Arterial blood by Pulse oximetry Heart rate Body temperature Body weight Systolic And Diastolic Provider Name and Address Organization Details Last Updated DateTime 1 31.6 kg/m2 167.64 cm 97 % 97 % 65 /min 97 [degF] 75681.1 g 142/92 mm[Hg] Not Available [facility] 3 03:09:24 Date Recorded Body height Oxygen saturation Oxygen saturation in Arterial blood by Pulse oximetry Heart rate Body temperature Systolic And Diastolic Provider Name and Address Organization Details Last Updated DateTime 2 167.64 cm 96 % 96 % 69 /min 97.5 [degF] 124/84 mm[Hg] Not Available [facility] 3 03:09:24 Date Recorded Body mass index (BMI) Body height Oxygen saturation Oxygen saturation in Arterial blood by Pulse oximetry Heart rate Body temperature Body weight Systolic And Diastolic Provider Name and Address Organization Details Last Updated DateTime 1 31.3 kg/m2 167.64 cm 98 % 98 % 84 /min 96.5 [degF] 93780.9 2 g 136/90 mm[Hg] Not Available [facility] 3 03:09:24 Social History Question Answer Notes LastModified by Organizat ion Details LastModified Time Tobacco Smoking Status Former Smoker Not Available [facility], [facility] 05/13/2022 03:02:47 Do You Have An Advance Directive? No [id number] Information not available 05/13/2022 How Many Years Have You Consumed Alcohol? 40 [id number] Information not available 05/13/2022 What Is Your Level Of Caffeine Consumption? Occasional [id number] Information not available 05/13/2022 How Much Tobacco Do You Chew? None [id number] Information not available 05/13/2022 In The 14 Days Before Symptom Onset, Have You Had Close Contact With A Laboratory-confi rmed COVID-19 While That Case Was Ill? No [id number] Information not available 05/13/2022 In The 14 Days Before Symptom Onset, Have You Had Close Contact With A Person Who Is Under Investigation For COVID-19 While That Person Was Ill? No [id number] Information not available 05/13/2022 What Type Of Diet Are You Following? REGULAR [id number] Information not available 05/13/2022 Which Illicit Or Recreational Drugs Have You Used? None [id number] Information not available 05/13/2022 Do You Have An Electrostatic Air Filter? No [id number] Information not available 05/13/2022 Do You Have A Humidifier? No [id number] Information not available 05/13/2022 Where Do You Live? SingleLevelHouse W/baseme nt [id number] Information not available 05/13/2022 Do You Have Moisture Problems In Your Home? No [id number] Information not available 05/13/2022 What Was The Date Of Your Most Recent Tobacco Screening? 12/17/2020 [id number] Information not available 05/13/2022 How Many Children Do You Have? 1 [id number] Information not available 05/13/2022 Have You Ever Been Counseled For Unhealthy Alcohol Use? No [email or web address] Information not available 06/03/2022 Do You Have Any Pets? Yes [id number] Information not available 05/13/2022 Do You Use Your Seat Belt Or Car Seat Routinely? Yes [id number] Information not available 05/13/2022 Do You Have Smoke And Carbon Monoxide Detectors In Your Home? No [id number] Information not available 05/13/2022 At What Age Did You Start Smoking Tobacco? 11 [id number] [id number] Information not available 05/13/2022 Are You Passively Exposed To Smoke? No [id number].[id number] Information not available 05/13/2022 How Much Tobacco Do You Smoke? 1 PPW [id number].[id number] Information not available 05/13/2022 Do You Use Sunscreen Routinely? Yes [id number] Information not available 05/13/2022 Has Tobacco Cessation Counseling Been Provided? No [email or web address] Information not available 06/03/2022 How Many Years Have You Smoked Tobacco? 17 [id number] Information not available 05/13/2022 Have You Recently Traveled Abroad? No [id number] Information not available 05/13/2022 Do You Have Any Dietary Restrictions? No Information not available 06/03/2022 Sex: Female Functional Status Question Answer Note LastModified by Organizat ion Details LastModified Time Do you use any illicit or recreational drugs? No MIGRATION.[id number] Information not available 05/13/2022 Do you or have you ever used any other forms of tobacco or nicotine? No [email or web address] Information not available 06/03/2022 What is your level of alcohol consumption? Moderate MIGRATION.[id number] Information not available 05/13/2022 Do you or have you ever used smokeless tobacco? 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 Never used electronic cigarettes MIGRATION.[id number] Information not available 05/13/2022 What is your exercise level? Moderate MIGRATION.[id number] 0220 Information not available 05/13/2022 Mental Status None recorded. Family History Relationship Description Onset Age of this Age Resolved Age Notes LastModified by Organization Details LastModified Time Mother Cerebrovascu lar accident [id number] Not available 05/13/2022 03:07:24 Mother Lupus erythematosu s [id number].039 [id number] Not available 05/13/2022 03:07:24 Father Malignant neoplasm of lung MIGRATION.794 [id number] Not available 05/13/2022 03:07:24 Brother Malignant tumor of colon MIGRATION.875 [id number] Not available 05/13/2022 03:07:24 Medical History Condition Response CHEST XRAY Y NERVE DISEASE N BLINDNESS N OTHER # 1 N POLIO N LUNG DISEASE/DISORDER N RADIATION / CHEMOTHERAPY N COPD N Other # 2 N BLOOD DISEASES N SURGERY N EAR OR HEARING PROBLEMS N BOWEL PROBLEMS N DEPRESSION (INCLUDING POST ) N FEMALE PROBLEMS / INFECTIONS N STROKE/TIA N CHEST CT Y ULCERS [...] HAVE YOU BEEN HOSPITALIZED OR SEEN IN [facility] IN THE PAST YEAR ? N ATHEROSCLEROSIS [...] virus, quadrivalent, preservative 0 completed Not Available [facility] 05/13/2022 03:15:54 Influenza, split virus, quadrivalent, PF 0 completed Not Available [facility] 05/13/2022 03:15:54 Past Encounters Encounter ID Performer Location Encounter Start Date Encounter Closed Date Diagnosis/Indication Diagnosis SNOMED-CT Code Diagnosis ICD10 Code Diagnosis Note [id number] [facility] [address] [address] 06/18/2020 00:00:00 06/18/2020 11:13:52 [id number] Rex Fernando MD [facility] Jesu mcconnell [facility] [place] [address] 10/03/2020 00:00:00 10/03/2020 13:53:24 [id number] Rex Fernando MD [facility] Jesu mcconnell [facility] [place] [address] 10/23/2020 00:00:00 10/23/2020 12:07:44 [id number] [facility] Pulmon[place] [address] [place] [address] 12/17/2020 00:00:00 12/17/2020 13:43:42 [id number] Rex Fernando MD [facility] Jesu mcconnell [address] [place] [address] 03/03/2021 00:00:00 03/04/2021 09:03:50 [id number] Magaly Menard, [facility] Pulmonolo gy [place]o [place] [address] [place] [address] 01/30/2022 00:00:00 01/30/2022 13:15:38 [id number] TERESA Adam [facility] Carly mcconnell [address] [facility] [address] [place] [address] 06/03/2022 15:10:38 06/03/2022 16:08:22 Hyperlipidemia 96301306 E78.5 Followed by cardiology (Dr. Mireles). Liver enzy mes level above reference range 844053882 R74.01 Pt. was put on a statin, once she stopped it normalized . States has not had trouble since but has regular f/u with hepatologi st. Obstructiv e sleep apnea syndrome [id number] G47.33 Followed by pulmonolog y (Magaly Menard). Coronary atherosclerosis 735547808 I25.10 Followed by cardiology (Dr. Mireles). Hypothyroidism 56076020 E03.9 Continue levothyrox ine 75mcg daily. Recheck labs today. Hyperglycemia 44021892 R 73.9 (01/30/22) A1C 5.7She states she was started on metformin but thinks it was more to help her lose weight. Menopausal flushing 1983 83936 N95.1 Managed by product safety associate. Continue paroxetine 10mg daily. Health Concerns Section Related Observation LastModified by Organization Detai ls LastModified Time None Recorded Concern Status LastModified by Organization Details LastModified Time None Recorded Advance Directives Directive N: Payers Insurance Date Sequence Insurance Name Policy Number Policy Wright Covered Member ID Wright Member ID Guarantor Name 06/15/2022 3 [employer] [id number] Adam Maria [id number] Gilma Barahona 02/18/2023 2 [place] Gilma Barahona [id number] Gilma Barahona 06/11/2022 3 [facility]-[employer]IG[employer] - [employer] - [place]IG[place]ICK (PPO) Adam Maria [id number] Gilma Barahona 06/15/2022 1 [employer] - [employer] [facility] [place] (PPO) [id number] Gilma Barahona [id number] Gilma [place] 06/09/2022 3 [facility]-CIGNA - [employer] HE[employer] STRATEGIES - CIGNA (PPO) Adam Maria [id number] Gilma Strong[place]io 06/10/2022 3 [facility]-[employer] - [employer] HE[employer] STRATEGIES - CIGNA (PPO) Adam Maria [id number] Gilma Thompson [place] Notes Date Note Type Note Provider Name and Address Organization Details Recorded Time 06/03/2022 text/html Pt. here to establish care, transferring from [facility]. Other providers involved in care: Magaly Menard (pulmonology), Dr. Mireles (cardiology), Dr. Wilson (gynecology)No new concerns or complaints. TERESA Adam [address] [place] [address], [place], [address], [place] [facility] [employer] 06/03/2022 16:38:07 OBGyn Episode No OBEpisode recorded.
--- OUTSIDE RECORDS SUMMARY | 2024-10-02 13:58 | XMS_ITS | Clinical Summary ---
Author Organization [facility] Feng Reyes Address [address] [facility] [place] [address] Care Team Providers Care Box Car Loader Name Role Phone Nicole Vazquez PEEWEE Primary Care Provider [phone] Allergies Active Allergy Reactions Criticality Noted Date [...] Encounters Date Type Department Care Team Description 08/08/2024 External Device Data ST[facility] ABSTRACTION Provider, Abstract 08/02/2024 External Device Data [facility] ABSTRACTION Provider, Abstract 08/01/2024 External Device Data [facility] ABSTRACTION Provider, Abstract [...] on file Legal Sex Female 3:10 PM SHANK SANDER Gender Identity Not on file Sexual Orientation [...] 1:40 PM CDT Height 167.6 cm (5' 6) 02/11/2021 10:51 AM SHANK SANDER Body Mass Index 33.73 02/11/2021 10:51 AM SHANK SANDER Plan of Treatment Health Maintenance Due Date Last Done Comments DTAP/TDAP/TD VACCINES (1 - Tdap) 11/27/1982 HPV/Cotest (21-29) 11/27/1984 HPV/Cotest (30-65) 11/27/1993 BREAST CANCER SCREENING 2003 FIT-DNA Q 3 years 11/27/2008 FIT/FOBT Q 1 year 11/27/2008 Flex Sig/CT Colonography Q 5 years 11/27/2008 ZOSTER VACCINE (1 of 2) 11/27/2013 CERVICAL CANCER SCREENING 01/27/2020 PAP SMEAR 01/27/2020 01/26/2017 INFLUENZA VACCINE (#1) 2024 0, 12/28/2019 COLORECTAL SCREENING 09/08/2025 09/09/2015 Colorectal Cancer Screening 09/08/2025 RSV VACCINE (60+ or ) (1 - 1-dose 75+ series) 11/27/2038 HEPATITIS B VACCINES Aged Out No long er eligible based on patient's age to complete this topic Insurance [facility] OPEN ACCESS HMO Care Teams Box Car Loader Relationship Specialty Start Date End Date Nicole Vazquez ANP [address] [address] PCP - General Nurse Practitioner Adult Health 02/11/21
== END 2024-10-02 13:56 | disposition home or self-care (01) ==
LOC: ANHIMG 13:56
PROVIDERS: PCP Nurse Practitioner Adult Health; Visit Provider Obstetrics & Gynecology Gynecology
DX: Z12.31 Encounter for screening mammogram for malignant neoplasm of breast (principal)
CPT/HCPCS: 77063; 77067

== ENCOUNTER 2024-12-12 12:05 | Outpatient (CLI) | payer OTHER, SELFPAY ==
--- OUTSIDE RECORDS SUMMARY | 2024-12-12 12:10 | XMS_ITS | Clinical Summary ---
Author Organization [facility] Feng Reyes Address [address] [place] [address] Care Team Providers Care County Nurse Name Role Phone Nicole Vazquez PEEWEE Primary Care Provider [phone] Allergies Active Allergy Reactions Criticality Noted Date [...] Noted Date Diagnosed Date Iron overload 02/11/2021 Family History Medical History Relation Name Comments [...] on file Legal Sex Female 3:10 PM CHEMICAL PUMPER Gender Identity Not on file Sexual Orientation [...] 167.6 cm (5' 6) 02/11/2021 10:51 AM CHEMICAL PUMPER Body Mass Index 33.73 02/11/2021 10:51 AM CHEMICAL PUMPER Plan of Treatment Health Maintenance Due Date Last Done Comments DTAP/TDAP/TD VACCINES (1 - Tdap) 11/27/1982 HPV/Cotest (21-29) 11/27/1984 HPV/Cotest (30-65) 11/27/1993 BREAST CANCER SCREENING 2003 FIT-DNA Q 3 years 11/27/2008 FIT/FOBT Q 1 year 11/27/2008 Flex Sig/CT Colonography Q 5 years 11/27/2008 ZOSTER VACCINE (1 of 2) 11/27/2013 CERVICAL CANCER SCREENING 01/27/2020 PAP SMEAR 01/27/2020 01/26/2017 INFLUENZA VACCINE (#1) 2024 12/28/2019, 2019 COLORECTAL SCREENING 09/08/2025 09/09/2015 Colorectal Cancer Screening 09/08/2025 RSV VACCINE (60+ or ) (1 - 1-dose 75+ series) 11/27/2038 Insurance [facility] OPEN ACCESS HMO Care Teams County Nurse Relationship Specialty Start Date End Date Nicole Vazquez ANP [address] [address] PCP - General Nurse Practitioner Adult Health 02/11/21
--- OUTSIDE RECORDS SUMMARY | 2024-12-12 12:10 | XMS_ITS | Clinical Summary ---
Author Organization [facility] [employer] Address [address] [place] [address] Care Team Providers Care Seam Stay Stitcher Name Role Phone Rex Fernando MD Primary Care Provider [phone] Source Comments [facility] [employer],non-owned Affiliates and Associated Physician Practices is amultiple site organization consisting of ambulatory clinics and hospital sitesin [place], [place], [place] and [place]. This disclosure is being madepursuant to the Care Everywhere program and may not contain all information available regarding this patient. Last updated 17.[facility] [employer] Allergies Active Allergy Reactions Criticality Noted Date [...] on file Legal Sex Female 5:49 PM ORTHOTICS PROSTHETICS ASSISTANT Gender Identity Not on file Sexual Orientation [...] 11/27/2013 ZOSTER VACCINE (1 of 2) 11/27/2013 DEPRESSION SCREENING 03/15/2024 COVID-19 VACCINE (1 - 2023-2 5 season) 2024 INFLUENZA VACCINE (#1) 2024 Respiratory Syncytial Virus [...] age to complete this topic Insurance [facility] Address: [facility] [id number] [place] [address] ANTHEM ANTHEM ANTHEM CIGNA CIG[place] [id number] [place] [id number] [place] [id number] [place] [id number] [place] [id number] [place] [id number] Care Teams Seam Stay Stitcher Relationship Specialty Start Date End Date Rex Fernando MD [address] [place] [address] [address] [place] [address] PCP - General 01/21/10
--- OUTSIDE RECORDS SUMMARY | 2024-12-12 12:10 | XMS_ITS | Clinical Summary ---
Author Organization [facility] Address [address] [place] [address] Care Team Providers Care Web Operations Administrator Name Role Phone None, Provider Primary Care Provider Rex Chapman MD Unavailable [phone] Allergies Active Allergy Reactions Criticality Noted [...] COVID-19 Vaccine (1 - 2023-2 5 season) 2024 DTaP, Tdap and Td Vaccines ( 2 [...] patient's age to complete this topic Insurance [facility] Care Teams Web Operations Administrator Relationship Specialty Start Date End Date None, Provider, PCP - General 09/23/21 Rex Bedoya MD [address] [place] [address] [facility] 09/20/21
--- OUTSIDE RECORDS SUMMARY | 2024-12-12 12:10 | XMS_ITS | Clinical Summary ---
Author Organization [facility] Address [address], [address] [place] [address] Phone Care Team Providers Care School Plant Consultant Name Role Phone Rex Fernando MD Primary Care Provider Mirta Darío Herlinda DO Unavailable [phone] Allergies Active Allergy Reactions Criticality Noted [...] Colorectal Cancer Screening 09/26/2021 Influenza Immunization (#1) 2024 SARS-COV-2 Immunization ( - season) 2024 Respiratory Syncytial Virus (RSV) Immunization (Adult) [...] Most Recently Relevant to Health Maintenance Insurance [facility] Care Teams School Plant Consultant Relationship Specialty Start Date End Date Rex Fernando MD [facility] [place] [address] PCP - General Plate Colorer 09/09/15 Darío Kirby DO [address] [place] [address] [place] [address] Gastroenterology 09/09/15
[2024-12-12 19:49] LABS: Alanine Aminotransferase 64 U/L (6-35); Albumin Level 4.2 g/dL (3.5-5.1); Alkaline Phosphatase 97 U/L (38-126); Anion Gap 5 mmol/L (4-12); Aspartate Amino Transferase 83 U/L (14-36); Bilirubin,Total 0.5 mg/dL (0.2-1.3); Blood Urea Nitrogen 16 mg/dL (7-17); Calcium 9.7 mg/dL (8.4-10.2); Carbon Dioxide 29 mmol/L (22-30); Chloride 101 mmol/L (98-107); Estimated Glomerular Filt Rate > 60; Glucose 99 mg/dL (65-110); Potassium 5.0 mmol/L (3.4-5.0); Sodium 135 mmol/L (137-145); Total Protein 9.0 g/dL (6.3-8.2)
[2024-12-12 20:03] LABS: Free T4 Free Thyroxine 1.08 ng/dL (0.78-2.19)
[2024-12-12 20:12] LABS: Hemoglobin A1C 5.7 % (<5.7)
[2024-12-12 20:27] LABS: Thyroid Stimulating Hormone 1.770 uIU/mL (0.465-4.680)
== END 2024-12-12 12:06 | disposition home or self-care (01) ==
PROVIDERS: PCP Nurse Practitioner Adult Health; Visit Provider Nurse Practitioner Adult Health
DX: I25.10 Atherosclerotic heart disease of native coronary artery without angina pectoris (principal); E03.9 Hypothyroidism, unspecified; R63.5 Abnormal weight gain; Z68.36 Body mass index [BMI] 36.0-36.9, adult
CPT/HCPCS: 36415; 80048; 80076; 83036; 84439; 84443